=== PATIENT | male | born 1995 | race Caucasian/White ===

== ENCOUNTER 2017-07-08 17:16 | Emergency (ER) | payer OTHER, MEDICAID ==
--- NOTE | 2017-07-08 19:24 | ED ---
Skin Complaint - HPI Summary HPI Summary: rash onthe right arm starting today. It has been itchy. No fevers or sweats. no vomiting or diarrhea. - History of Current Complaint Chief Complaint: UCRash Time Seen by Provider: 07/08/17 19:11 Stated Complaint: RASH Hx Obtained From: Family/Service Architect Onset/Duration: Started Hours Ago Timing: Constant, Lasting Hours Onset Severity: Moderate Current Severity: Moderate Skin Location: Discrete, Arm Character: Pruritus Aggravating Symptom(s): Touch Alleviating Symptom(s): Nothing Associated Signs & Symptoms: Negative - Allergy/Home Medications Allergies/Adverse Reactions: Allergies Allergy/AdvReac Type Severity Reaction Status Date / Time Bee Venom Allergy Intermediate Unknown Verified 07/08/17 19:19 Reaction Details Lactose Intolerance (GI) Allergy GI upset Verified 07/08/17 19:19 Clonazepam AdvReac profound Verified 07/08/17 19:19 agitation Lorazepam AdvReac profound Verified 07/08/17 19:19 agitation PMH/Surg Hx/FS Hx/Imm Hx Endocrine/Hematology History: Reports: Hx Thyroid Disease, Hx Anemia - MILDLY IN THE PAST Denies: Hx Anticoagulant Therapy, Hx Diabetes Cardiovascular History: Denies: Hx Congestive Heart Failure, Hx Deep Vein Thrombosis, Hx Hypertension , Hx Myocardial Infarction, Hx Pacemaker/ICD, Other Cardiovascular Problems/ Disorders Respiratory History: Reports: Hx Seasonal Allergies Denies: Hx Asthma, Hx Chronic Obstructive Pulmonary Disease (COPD), Hx Lung Cancer, Hx Pneumonia, Hx Pulmonary Embolism GI History: Reports: Hx Gastroesophageal Reflux Disease - IN THE PAST, Hx Irritable Bowel - POSSIBLE, CHRONIC DIARHEA AND CONSTAPATION, Other GI Disorders - possible gerd Denies: Hx Gall Bladder Disease, Hx Gastrointestinal Bleed, Hx Ulcer, Hx Urosepsis History: Denies: Hx Kidney Stones, Hx Renal Disease, Other Problems/Disorders Musculoskeletal History: Denies: Other Musculoskeletal History Sensory History: Denies: Hx Contacts or Glasses, Hx Hearing Aid Opthamlomology History: Denies: Hx Contacts or Glasses Neurological History: Reports: Hx Developmental Delay, Hx Migraine, Hx Seizures - NEW ONSET- A YR AGO, Other Neuro Impairments/Disorders - SEVERE AUTISM Denies: Hx Dementia, Hx Transient Ischemic Attacks (TIA) Psychiatric History: Reports: Hx Anxiety - ANXIETY WITH AUTISM, Hx Inpatient Treatment, Hx Community Mental Health Tx, Hx Bipolar Disorder, Hx of Violent Episodes Against Others, Other Psychiatric Issues/Disorders - Autism Denies: Hx Depression, Hx Panic Disorder, Hx Schizophrenia - Surgical History Surgery Procedure, Year, and Place: NONE Hx Anesthesia Reactions: No - Immunization History Date of Tetanus Vaccine: 09/2006 Infectious Disease History: No Infectious Disease History: Denies: Hx Clostridium Difficile, Hx Hepatitis, Hx Human Immunodeficiency Virus (HIV), Hx of Known/Suspected MRSA, Hx Shingles, Hx Tuberculosis, Hx Known/ Suspected VRE, Hx Known/Suspected VRSA, History Other Infectious Disease, Traveled Outside the [place] in Last 30 Days - Family History Known Family History: Negative: Cardiac Disease, Hypertension, Diabetes, Renal Disease, Respiratory Disease, Seizure Disorder, Blood Disorder, Other - Social History Alcohol Use: None Substance Use Type: Reports: None Smoking Status (MU): Never Smoked Tobacco Have You Smoked in the Last Year: No Review of Systems Positive: Rash All Other Systems Reviewed And Are Negative: Yes Physical Exam Triage Information Reviewed: Yes Vital Signs On Initial Exam: Initial Vitals Temp Pulse Resp Pulse Ox 99 F 82 18 99 07/08/17 19:14 07/08/17 19:14 07/08/17 19:14 07/08/17 19:14 Vital Signs Reviewed: Yes Skin: Positive: Warm, Skin Color Reflects Adequate Perfusion, Other - fine raised right posterior forearm. no induration or drainage or weeping.. Negative : Tender, "Wooden", Cyanosis @, Diaphoretic, Jaundiced, [place]ier Tracts Neck: Positive: Supple, Nontender, No Lymphadenopathy Respiratory/Lung Sounds: Positive: Clear to Auscultation Cardiovascular: Positive: Normal Abdomen Description: Positive: Nontender Musculoskeletal: Positive: Normal Neurological: Positive: Sensory/Motor Intact Psychiatric: Positive: Normal Diagnostics - Vital Signs Vital Signs Temp Pulse Resp Pulse Ox 07/08/17 19:14 99 F 82 18 99 - Laboratory Lab Statement: Any lab studies that have been ordered have been reviewed, and results considered in the medical decision making process. Course/Dx - Course Assessment/Plan: no infectious clinical features but the were warned that scratching it with dirty nails may make this infected. this is c/w dermatitis. - Diagnoses Provider Diagnoses: Rash and nonspecific skin eruption, Dermatitis Discharge - Discharge Plan Condition: Good Disposition: HOME Prescriptions: Triamcinolone 0.5% OINT * 1 applic TOPICAL BID #1 tube MDD 2 Patient Education Materials: Dermatitis (ED) Referrals: Lida Pedersen MD [Primary Care Provider] - If Needed
== END 2017-07-08 19:39 | disposition home or self-care (01) ==
LOC: UCCORT 17:16
DX: L30.9 Dermatitis, unspecified (principal)
CPT/HCPCS: 99212; G0463

== ENCOUNTER 2017-08-17 11:40 | Emergency (ER) | payer OTHER, BC, MEDICAID ==
--- NOTE | 2017-08-17 12:26 | UC ---
Lower Extremity/Ankle HPI - HPI Summary HPI Summary: staff has noted patient to be limping on right foot for 2 days, patient is general independent in ambulation, no falls or injury noted by staff, patient has profound autism and is unable to verbalize or localize pain or concern---In addition patient was medicated with Halcion prior to arrival to assist with obtaining x-ray. - History of Current Complaint Hx Obtained From: Patient Hx From Patient Unobtainable Due To: Altered Mental Status Onset/Duration: Sudden Onset - 2 days Severity Initially: Moderate Severity Currently: Moderate Aggravating Factor(s): Ambulation Alleviating Factor(s): Nothing Able to Bear Weight: Yes <Allie Gallardo - Last Filed: 08/17/17 16:54> <Pooja Villavicencio - Last Filed: 08/18/17 20:40> - History of Current Complaint Chief Complaint: UCLowerExtremity Stated Complaint: RIGHT ANKLE INJURY Time Seen by Provider: 08/17/17 12:15 - Allergies/Home Medications Allergies/Adverse Reactions: Allergies Allergy/AdvReac Type Severity Reaction Status Date / Time Bee Venom Allergy Intermediate Unknown Verified 08/17/17 12:28 Reaction Details Hydroxyzine Allergy Unknown Verified 08/17/17 12:28 Reaction Details Lactose Intolerance (GI) Allergy GI upset Verified 08/17/17 12:28 Clonazepam AdvReac profound Verified 08/17/17 12:28 agitation Lorazepam AdvReac profound Verified 08/17/17 12:28 agitation Home Medications: Home Medications Divalproex DR TAB(*) [Depakote DR TAB(*)] 250 mg PO BEDTIME 08/17/17 [History Confirmed 08/17/17] Levothyroxine TAB* [Synthroid TAB*] 50 mcg PO DAILY 08/17/17 [History Confirmed 08/17/17] [place] Carbonate TAB* 300 mg PO BID 08/17/17 [History Confirmed 08/17/17] PMH/Surg Hx/FS Hx/Imm Hx Previously Healthy: No Endocrine History: Hypothyroidism Psychological History: Other Other Psychological History: autism Other History Of: Negative For: HIV, Hepatitis B, Hepatitis C, Anticoagulant Therapy - Surgical History Surgical History: None Surgery Procedure, Year, and Place: NONE - Family History Known Family History: Positive: Unknown Negative: Cardiac Disease, Hypertension, Diabetes, Renal Disease, Respiratory Disease, Seizure Disorder, Blood Disorder, Other Family History: staff with family history, pt unable to report hx - Social History Occupation: Disabled Lives: Skilled Nursing Alcohol Use: None Substance Use Type: None Smoking Status (MU): Never Smoked Tobacco Have You Smoked in the Last Year: No - Immunization History Most Recent Influenza Vaccination: ? Most Recent Tetanus Shot: 09/30/06 Most Recent Pneumonia Vaccination: 05/11/19 <Allie Gallardo - Last Filed: 08/17/17 16:54> Review of Systems Constitutional: Negative Skin: Negative Eyes: Negative ENT: Negative Respiratory: Negative Cardiovascular: Negative Gastrointestinal: Negative Genitourinary: Negative Motor: Negative Neurovascular: Negative Musculoskeletal: Arthralgia - as evidenced by limp Neurological: Negative Psychological: Negative Is Patient Immunocompromised?: No All Other Systems Reviewed And Are Negative: Yes <Allie Gallardo - Last Filed: 08/17/17 16:54> Physical Exam Triage Information Reviewed: Yes Appearance: Well-Appearing, No Pain Distress, Well-Nourished, Other: - sleep on stretcher Vital Signs: Initial Vital Signs Temp 97.3 F 08/17/17 12:08 Pulse 80 08/17/17 12:08 Resp 16 08/17/17 12:08 Vital Signs Reviewed: Yes Eye Exam: Normal Eyes: Positive: Conjunctiva Clear ENT Exam: Normal ENT: Positive: Normal ENT inspection, Hearing grossly normal, Pharynx normal. Negative: Nasal congestion, Nasal drainage, Tonsillar swelling, Tonsillar exudate, Trismus, Muffled/hoarse voice Dental Exam: Normal Neck exam: Normal Neck: Positive: Supple, Nontender Respiratory Exam: Normal Respiratory: Positive: Chest non-tender, Lungs clear, Normal breath sounds, No respiratory distress, No accessory muscle use Cardiovascular Exam: Normal Cardiovascular: Positive: RRR, No Murmur, Pulses Normal, Brisk Capillary Refill Abdominal Exam: Normal Musculoskeletal Exam: Normal Musculoskeletal: Positive: Strength Intact, ROM Intact, No Edema Neurological Exam: Normal Neurological: Positive: Alert, Muscle Tone Normal Psychological Exam: Normal Psychological: Positive: Abnormal Response To Family, Decreased Age Appropriate Behavior Skin Exam: Normal <Allie Gallardo - Last Filed: 08/17/17 16:54> Vital Signs: Initial Vital Signs Temp 97.3 F 08/17/17 12:08 Pulse 80 08/17/17 12:08 Resp 16 08/17/17 12:08 <Pooja Villavicencio - Last Filed: 08/18/17 20:40> Diagnostics - Radiology No standard instances Xray Interpretation: No Acute Changes Radiology Interpretation Completed By: Radiologist <Allie Gallardo - Last Filed: 08/17/17 16:54> Re-Evaluation - Re-Evaluation First Eval Change: Worse - one half hour after x-rays complete status remaines unverified-- -patient is getting aggitated and staff is wishing to leave with patient----x- rays wet read as negative Second Eval Change: Unchanged - confirmed x-ray reads by radiologist as negative no addiotal information to be provided to life support technician as plann was to call if they are any fractures <Allie Gallardo - Last Filed: 08/17/17 16:54> Lower Extremity Course/Dx - Course Course Of Treatment: rest, ibuprofen as ordereed, follow with Dr. Cartagena in 2 days - Differential Dx/Diagnosis Provider Diagnoses: Right leg pain <Allie Gallardo - Last Filed: 08/17/17 16:54> Discharge <Allie Gallardo - Last Filed: 08/17/17 16:54> <Pooja Villavicencio - Last Filed: 08/18/17 20:40> - Discharge Plan Condition: Stable Disposition: HOME Patient Education Materials: Non-pharmacological Pain Management Therapies for Adults (ED) Referrals: Lida Pedersen MD [Primary Care Provider] - 2 Days Attestation Statement User Type: Provider <Pooja Villavicencio - Last Filed: 08/18/17 20:40>
--- NOTE | 2017-08-17 13:36 | RAD ---
HISTORY: Limp COMPARISONS: None VIEWS: 2, Frontal and lateral views of the right foreleg FINDINGS: BONE DENSITY: Normal. BONES: There is no displaced fracture. JOINTS: There is no arthropathy. ALIGNMENT: There is no dislocation. SOFT TISSUES: Unremarkable. OTHER FINDINGS: None. IMPRESSION: NO ACUTE OSSEOUS INJURY. IF SYMPTOMS PERSIST, RECOMMEND REPEAT IMAGING.
--- NOTE | 2017-08-17 13:36 | RAD ---
HISTORY: Limp COMPARISONS: None VIEWS: 2, Frontal and lateral views of the right foot FINDINGS: BONE DENSITY: Normal. BONES: There is no displaced fracture. JOINTS: There is no arthropathy. ALIGNMENT: There is no dislocation. SOFT TISSUES: Unremarkable. OTHER FINDINGS: None. IMPRESSION: NO ACUTE OSSEOUS INJURY. IF SYMPTOMS PERSIST, RECOMMEND REPEAT IMAGING.
--- NOTE | 2017-08-17 13:37 | RAD ---
HISTORY: Limp COMPARISONS: None VIEWS: 2, frontal and oblique lateral views of the right knee FINDINGS: BONE DENSITY: Normal. BONES: There is no displaced fracture. JOINTS: There is no arthropathy. There is no suprapatellar joint effusion or lipohemarthrosis. ALIGNMENT: There is no dislocation. SOFT TISSUES: Unremarkable. OTHER FINDINGS: None. IMPRESSION: NO ACUTE OSSEOUS INJURY. IF SYMPTOMS PERSIST, RECOMMEND REPEAT IMAGING.
--- NOTE | 2017-08-17 13:41 | RAD ---
HISTORY: Limping COMPARISONS: None VIEWS: 3, Frontal view of the pelvis with frontal and frog-leg views of the right hip FINDINGS: BONE DENSITY: Normal. BONES: There is no displaced fracture. JOINTS: There is no arthropathy. ALIGNMENT: There is no dislocation. SOFT TISSUES: Unremarkable. OTHER FINDINGS: None. IMPRESSION: NO ACUTE OSSEOUS INJURY. IF SYMPTOMS PERSIST, RECOMMEND REPEAT IMAGING.
== END 2017-08-17 13:43 | disposition home or self-care (01) ==
LOC: UCCORT 11:40
DX: J02.9 Acute pharyngitis, unspecified (principal); F90.1 Attention-deficit hyperactivity disorder, predominantly hyperactive type
CPT/HCPCS: 99212; G0463

== ENCOUNTER 2017-11-02 13:43 | Emergency (ER) | payer OTHER, BC, MEDICAID ==
[2017-11-02 14:50] LABS: ABS Basophils 0.1 10^3/ul (0-0.2); ABS Eosinophils 0.1 10^3/ul (0-0.6); ABS Lymphocytes 1.7 10^3/ul (1.0-4.8); ABS Monocytes 0.5 10^3/ul (0-0.8); ABS Neutrophils 3.4 10^3/ul (1.5-7.7); ABS Nucleated RBC 0 10^3/ul; Eosinophil % 2.5 % (0-6); Hematocrit 36 % (42-52); Hemoglobin 12.9 g/dl (14.0-18.0); Lymphocyte % 30.1 % (25-47); Mean Corpuscular HGB Conc 36 g/dl (31-36); Mean Corpuscular Hemoglobin 31 pg (27-31); Mean Corpuscular Volume 88 fL (80-94); Mean Platelet Volume 7 um3 (7.4-10.4); Nucleated Red Blood Cells % 0.1; Platelet Count 265 10^3/ul (150-450); Red Blood Count 4.14 10^6/ul (4.0-5.4); Red Cell Distribution Width 12 % (10.5-15); White Blood Count 5.8 10^3/ul (3.5-10.8)
[2017-11-02 14:59] LABS: Urine Appearance Clear; Urine Blood Negative (Negative); Urine Color Colorless; Urine Ketones Negative (Negative); Urine Protein Negative (Negative); Urine Specific Gravity 1.002 (1.010-1.030); Urine Urobilinogen Negative (Negative)
--- NOTE | 2017-11-02 15:06 | RAD ---
HISTORY: Possible seizure COMPARISONS: May 30, 2012 TECHNIQUE: Multiple contiguous axial CT scans were obtained of the head without intravenous contrast. FINDINGS: The study is limited by patient motion artifact. HEMORRHAGE/INFARCT: There is no hemorrhage or acute infarct. MASSES/SHIFT: There is no mass or shift. EXTRA-AXIAL SPACES: There are no extra-axial fluid collections. SULCI AND VENTRICLES: The sulci and ventricles are normal in size and position for the patient's stated age. CEREBRUM: There are no focal parenchymal abnormalities. BRAINSTEM: There are no focal parenchymal abnormalities. CEREBELLUM: There are no focal parenchymal abnormalities. VESSELS: The vessels are grossly normal. PARANASAL SINUSES: The paranasal sinuses are clear. ORBITS: The orbits are unremarkable. BONES AND SOFT TISSUE: There is soft tissue swelling along the central frontal scalp. OTHER: None IMPRESSION: NO ACUTE INTRACRANIAL PATHOLOGY.
[2017-11-02 15:10] LABS: EGFR Non-African American 221.3 (>60)
[2017-11-02] MEDS ORDERED: Triazolam TAB* 0.25 MG PO ONE (18:45)
[2017-11-02] MEDS ORDERED: Haloperidol INJ IV/IM* 5 MG/ML AMP IM ONE (18:46)
[2017-11-02] MEDS ORDERED: QUEtiapine TAB* 100 MG PO ONE (18:50)
[2017-11-02 19:00] VITALS: BP 137/71
--- NOTE | 2017-11-13 15:22 | ED ---
Beau Ledesma Gabriel, scribed for Simba Marie MD on 11/02/17 at 1425 . Neurological HPI - HPI Summary HPI Summary: This patient is a 22 year old M BIBA to [facility] accompanied by care takers with a chief complaint of possible seizure activity that began at 13:00. His child adolescent care reports that he was getting out of bed and fell, but the open hearth furnace operator caught him. Since then he has had decreased responsiveness with occasional grunting. He has a history of seizures that were diagnosed due to sleep deprivation. Earlier in the day he was at baseline, at baseline he is very active and fidgets often. Staff denies incontinence and vomiting. He has had a recent medication switch from Depakote to Remeron on 10/15/17. - History of Current Complaint Chief Complaint: EDSeizure Stated Complaint: LOSS OC CONSCIOUSNESS Hx Obtained From: Family/Curb Builder Onset/Duration: Sudden Onset, Started hours ago, Still Present Timing: Constant Onset Severity: Mild Current Severity: Mild Pain Intensity: 0 Pain Scale Used: 0-10 Numeric Character: Responsiveness - Allergy/Home Medications Allergies/Adverse Reactions: Allergies Allergy/AdvReac Type Severity Reaction Status Date / Time Bee Venom Allergy Intermediate Unknown Verified 11/02/17 13:59 Reaction Details Hydroxyzine Allergy Unknown Verified 11/02/17 13:59 Reaction Details Lactose Intolerance (GI) Allergy GI upset Verified 11/02/17 13:59 Clonazepam AdvReac profound Verified 11/02/17 13:59 agitation Lorazepam AdvReac profound Verified 11/02/17 13:59 agitation PMH/Surg Hx/FS Hx/Imm Hx Endocrine/Hematology History: Reports: Hx Thyroid Disease, Hx Anemia - MILDLY IN THE PAST Denies: Hx Anticoagulant Therapy, Hx Diabetes Cardiovascular History: Denies: Hx Congestive Heart Failure, Hx Deep Vein Thrombosis, Hx Hypertension , Hx Myocardial Infarction, Hx Pacemaker/ICD, Other Cardiovascular Problems/ Disorders Respiratory History: Reports: Hx Seasonal Allergies Denies: Hx Asthma, Hx Chronic Obstructive Pulmonary Disease (COPD), Hx Lung Cancer, Hx Pneumonia, Hx Pulmonary Embolism GI History: Reports: Hx Gastroesophageal Reflux Disease - IN THE PAST, Hx Irritable Bowel - POSSIBLE, CHRONIC DIARHEA AND CONSTAPATION, Other GI Disorders - possible gerd Denies: Hx Gall Bladder Disease, Hx Gastrointestinal Bleed, Hx Ulcer, Hx Urosepsis History: Denies: Hx Kidney Stones, Hx Renal Disease, Other Problems/Disorders Musculoskeletal History: Denies: Other Musculoskeletal History Sensory History: Denies: Hx Contacts or Glasses Opthamlomology History: Denies: Hx Contacts or Glasses Neurological History: Reports: Hx Developmental Delay, Hx Migraine, Hx Seizures - NEW ONSET- A YR AGO, Other Neuro Impairments/Disorders - SEVERE AUTISM Denies: Hx Dementia, Hx Transient Ischemic Attacks (TIA) Psychiatric History: Reports: Hx Anxiety - ANXIETY WITH AUTISM, Hx Inpatient Treatment, Hx Community Mental Health Tx, Hx Bipolar Disorder, Hx of Violent Episodes Against Others, Other Psychiatric Issues/Disorders - Autism Denies: Hx Depression, Hx Panic Disorder, Hx Schizophrenia - Surgical History Surgery Procedure, Year, and Place: NONE Hx Anesthesia Reactions: No - Immunization History Date of Tetanus Vaccine: 09/2006 Infectious Disease History: Yes Infectious Disease History: Denies: Hx Clostridium Difficile, Hx Hepatitis, Hx Human Immunodeficiency Virus (HIV), Hx of Known/Suspected MRSA, Hx Shingles, Hx Tuberculosis, Hx Known/ Suspected VRE, Hx Known/Suspected VRSA, History Other Infectious Disease, Traveled Outside the [place] in Last 30 Days - Family History Known Family History: Negative: Cardiac Disease, Hypertension, Diabetes, Renal Disease, Respiratory Disease, Seizure Disorder, Blood Disorder, Other Family History: staff with family history, pt unable to report hx - Social History Alcohol Use: None Substance Use Type: Reports: None Smoking Status (MU): Never Smoked Tobacco Have You Smoked in the Last Year: No Review of Systems - ROS Summary Review of Systems Summary: LEVEL 5 CAVEAT: ROS limited due to the patients decreased responsiveness. Constitutional: Other - syncope Negative: Vomiting Negative: incontinence Psychological: Other - decreased responsiveness All Other Systems Reviewed And Are Negative: No Physical Exam - Summary Physical Exam Summary: Appearance: somulent. Appears tired. Opens eyes on command. Decreased overall activity compared to baseline- per staff Skin: Warm Eyes: Normal ENT: self-inflicted abrasion on his forehead Neck: Supple, nontender Respiratory: Clear to auscultation Cardiovascular: tachycardic Abdomen: Soft, nontender Bowel: Present Musculoskeletal: Normal, Strength/ROM Intact. Moving extremities spontaneously Neurological: Normal, A&Ox3 Psychiatric: Normal Triage Information Reviewed: Yes Vital Signs On Initial Exam: Initial Vitals Temp Pulse Resp BP Pulse Ox 98.3 F 110 16 131/91 99 11/02/17 13:52 11/02/17 13:52 11/02/17 13:52 11/02/17 13:52 11/02/17 13:52 Vital Signs Reviewed: Yes Completion Of Physical Exam Limited Due To: Altered Mental Status, Level 5 Diagnostics - Vital Signs Vital Signs Temp Pulse Resp BP Pulse Ox 11/02/17 13:52 98.3 F 110 16 131/91 99 - Laboratory Lab Results: Lab Results 11/02/17 11/02/17 11/02/17 Range/Units 14:36 14:36 14:36 WBC 5.8 (3.5-10.8) 10^3/ul RBC 4.14 (4.0-5.4) 10^6/ul Hgb 12.9 L (14.0-18.0) g/dl Hct 36 L (42-52) % MCV 88 (80-94) fL MCH 31 (27-31) pg MCHC 36 (31-36) g/dl RDW 12 (10.5-15) % Plt Count 265 (150-450) 10^3/ul MPV 7 L (7.4-10.4) um3 Neut % (Auto) 58.0 (38-83) % Lymph % (Auto) 30.1 (25-47) % [place] % (Auto) 8.5 (1-9) % Eos % (Auto) 2.5 (0-6) % Baso % (Auto) 0.9 (0-2) % Absolute Neuts (auto) 3.4 (1.5-7.7) 10^3/ul Absolute Lymphs (auto) 1.7 (1.0-4.8) 10^3/ul Absolute Monos (auto) 0.5 (0-0.8) 10^3/ul Absolute Eos (auto) 0.1 (0-0.6) 10^3/ul Absolute Basos (auto) 0.1 (0-0.2) 10^3/ul Absolute Nucleated RBC 0 10^3/ul Nucleated RBC % 0.1 Sodium 132 L (133-145) mmol/L Potassium TNP Chloride 105 (101-111) mmol/L Carbon Dioxide 24 (22-32) mmol/L Anion Gap 3 (2-11) mmol/L BUN 8 (6-24) mg/dL Creatinine 0.47 L (0.67-1.17) mg/dL Est GFR ( Amer) 284.6 (>60) Est GFR (Non-Af Amer) 221.3 (>60) BUN/Creatinine Ratio 17.0 (8-20) Glucose 91 (70-100) mg/dL Lactic Acid 0.9 (0.5-2.0) mmol/L Calcium 9.1 (8.6-10.3) mg/dL Magnesium 2.0 (1.9-2.7) mg/dL Total Bilirubin 0.50 (0.2-1.0) mg/dL AST TNP ALT 21 (7-52) U/L Alkaline Phosphatase 69 (34-104) U/L Ammonia (16-53) mol/L Total Protein 6.1 L (6.4-8.9) g/dL Albumin 4.2 (3.2-5.2) g/dL Globulin 1.9 L (2-4) g/dL Albumin/Globulin Ratio 2.2 (1-3) Urine Color Urine Appearance Urine pH (5-9) Ur Specific [place] (1.010-1.030) Urine Protein (Negative) Urine Ketones (Negative) Urine Blood (Negative) Urine Nitrate (Negative) Urine Bilirubin (Negative) Urine Urobilinogen (Negative) Ur Leukocyte Esterase (Negative) Urine Glucose (Negative) [place] 0.96 (0.6-1.2) mmol/L 11/02/17 11/02/17 11/02/17 Range/Units 14:36 14:45 16:28 WBC (3.5-10.8) 10^3/ul RBC (4.0-5.4) 10^6/ul Hgb (14.0-18.0) g/dl Hct (42-52) % MCV (80-94) fL MCH (27-31) pg MCHC (31-36) g/dl RDW (10.5-15) % Plt Count (150-450) 10^3/ul MPV (7.4-10.4) um3 Neut % (Auto) (38-83) % Lymph % (Auto) (25-47) % [place] % (Auto) (1-9) % Eos % (Auto) (0-6) % Baso % (Auto) (0-2) % Absolute Neuts (auto) (1.5-7.7) 10^3/ul Absolute Lymphs (auto) (1.0-4.8) 10^3/ul Absolute Monos (auto) (0-0.8) 10^3/ul Absolute Eos (auto) (0-0.6) 10^3/ul Absolute Basos (auto) (0-0.2) 10^3/ul Absolute Nucleated RBC 10^3/ul Nucleated RBC % Sodium (133-145) mmol/L Potassium TNP Chloride (101-111) mmol/L Carbon Dioxide (22-32) mmol/L Anion Gap (2-11) mmol/L BUN (6-24) mg/dL Creatinine (0.67-1.17) mg/dL Est GFR ( Amer) (>60) Est GFR (Non-Af Amer) (>60) BUN/Creatinine Ratio (8-20) Glucose (70-100) mg/dL Lactic Acid (0.5-2.0) mmol/L Calcium (8.6-10.3) mg/dL Magnesium (1.9-2.7) mg/dL Total Bilirubin (0.2-1.0) mg/dL AST TNP ALT (7-52) U/L Alkaline Phosphatase (34-104) U/L Ammonia 69 H (16-53) mol/L Total Protein (6.4-8.9) g/dL Albumin (3.2-5.2) g/dL Globulin (2-4) g/dL Albumin/Globulin Ratio (1-3) Urine Color Colorless Urine Appearance Clear Urine pH 7.0 (5-9) Ur Specific [place] 1.002 L (1.010-1.030) Urine Protein Negative (Negative) Urine Ketones Negative (Negative) Urine Blood Negative (Negative) Urine Nitrate Negative (Negative) Urine Bilirubin Negative (Negative) Urine Urobilinogen Negative (Negative) Ur Leukocyte Esterase Negative (Negative) Urine Glucose Negative (Negative) [place] (0.6-1.2) mmol/L Result Diagrams: 11/02/17 14:36 11/02/17 16:28 Lab Statement: Any lab studies that have been ordered have been reviewed, and results considered in the medical decision making process. - CT CT Brain CT Interpretation Completed By: Radiologist - no acute intracranial pathology ED physician has reviewed this radiology report. Course/Dx - Course Assessment/Plan: I had a conversation with our neurologist front line leader Dr. Marquez who agreed that given negative head ct, and the fact that patient is now back at baseline, that outpatient neurological evaluation for medication adjustments would be appropriate. Pt's family and staff at bedside and in agreement with plan. - Diagnoses Provider Diagnoses: Altered mental status Discharge - Discharge Plan Condition: Improved Disposition: HOME Patient Education Materials: Syncope (ED) Referrals: Lida Pedersen MD [Primary Care Provider] - Margarito Marquez MD [Medical Doctor] - Additional Instructions: PLEASE MAKE AN APPOINTMENT FIRST THING IN THE MORNING TO BE SEEN BY A NEUROLOGIST WITHIN 1-2 WEEKS PLEASE RETURN IMMEDIATELY TO THE ER IF YOU HAVE ANY WORSENING OR CONCERNING SYMPTOMS PLEASE MAKE AN APPOINTMENT TO BE SEEN BY YOUR PRIMARY CARE DOCTOR WITHIN 1 WEEK The documentation as recorded by the Beau hill Gabriel accurately reflects the service I personally performed and the decisions made by me, Simba Marie MD.
== END 2017-11-02 18:58 | disposition home or self-care (01) ==
LOC: ED 13:43
DX: R41.82 Altered mental status, unspecified (principal); R55 Syncope and collapse
CPT/HCPCS: 36415; 70450; 80053; 80178; 81003; 82140; 83605; 83735; 85025; 99282; A9270-GY; J1630

== ENCOUNTER 2017-11-11 16:35 | Emergency (ER) | payer BC, OTHER, MEDICAID ==
[2017-11-11 17:56] LABS: ABS Basophils 0 10^3/ul (0-0.2); ABS Eosinophils 0.1 10^3/ul (0-0.6); ABS Lymphocytes 1.9 10^3/ul (1.0-4.8); ABS Monocytes 0.7 10^3/ul (0-0.8); ABS Neutrophils 8.7 10^3/ul (1.5-7.7); ABS Nucleated RBC 0 10^3/ul; Eosinophil % 0.7 % (0-6); Hematocrit 41 % (42-52); Hemoglobin 14.1 g/dl (14.0-18.0); Lymphocyte % 16.6 % (25-47); Mean Corpuscular HGB Conc 35 g/dl (31-36); Mean Corpuscular Hemoglobin 30 pg (27-31); Mean Corpuscular Volume 86 fL (80-94); Mean Platelet Volume 7 um3 (7.4-10.4); Nucleated Red Blood Cells % 0; Platelet Count 305 10^3/ul (150-450); Red Cell Distribution Width 12 % (10.5-15); White Blood Count 11.4 10^3/ul (3.5-10.8)
[2017-11-11 18:18] LABS: INR 1.01 (0.77-1.02)
[2017-11-11 19:26] LABS: Urine Appearance Clear; Urine Blood Negative (Negative); Urine Color Colorless; Urine Ketones Negative (Negative); Urine Protein Negative (Negative); Urine Urobilinogen Negative (Negative)
[2017-11-11] MEDS ORDERED: Divalproex DR TAB(*) 500 MG PO ONE (20:31)
[2017-11-11 20:42] VITALS: BP 139/70
--- NOTE | 2017-11-12 12:10 | ED ---
Shiva Ledesma Thomas, scribed for Gregory Edge MD on 11/11/17 at 1943 . Neurological HPI - HPI Summary HPI Summary: This patient is a 22 year old M BIBA to [facility] accompanied by family with seizure activity since 4 pm today. The patient has a history of autism and he is nonverbal. History is obtained from the patients mother. She reports his whole body was shaking and that the seizure lasted about 45 seconds. - History of Current Complaint Chief Complaint: EDSeizure Stated Complaint: SEIZURES Time Seen by Provider: 11/11/17 16:53 Hx Obtained From: Family/Repairer Controller Tester Hx From Patient Unobtainable Due To: Other - Autism Onset/Duration: Sudden Onset, Started hours ago Timing: Sudden Onset Number of Seizures: 1 Pain Intensity: 0 Pain Scale Used: 0-10 Numeric Episode Lasting: Seconds/Minutes - 45 seconds Aggravating: Nothing Alleviating: Nothing Related Hx: Seizure - Allergy/Home Medications Allergies/Adverse Reactions: Allergies Allergy/AdvReac Type Severity Reaction Status Date / Time Bee Venom Allergy Intermediate Unknown Verified 11/02/17 13:59 Reaction Details Hydroxyzine Allergy Unknown Verified 11/02/17 13:59 Reaction Details Lactose Intolerance (GI) Allergy GI upset Verified 11/02/17 13:59 Clonazepam AdvReac profound Verified 11/02/17 13:59 agitation Lorazepam AdvReac profound Verified 11/02/17 13:59 agitation PMH/Surg Hx/FS Hx/Imm Hx Endocrine/Hematology History: Reports: Hx Thyroid Disease, Hx Anemia - MILDLY IN THE PAST Denies: Hx Anticoagulant Therapy, Hx Diabetes Cardiovascular History: Denies: Hx Congestive Heart Failure, Hx Deep Vein Thrombosis, Hx Hypertension , Hx Myocardial Infarction, Hx Pacemaker/ICD, Other Cardiovascular Problems/ Disorders Respiratory History: Reports: Hx Seasonal Allergies Denies: Hx Asthma, Hx Chronic Obstructive Pulmonary Disease (COPD), Hx Lung Cancer, Hx Pneumonia, Hx Pulmonary Embolism GI History: Reports: Hx Gastroesophageal Reflux Disease - IN THE PAST, Hx Irritable Bowel - POSSIBLE, CHRONIC DIARHEA AND CONSTAPATION, Other GI Disorders - possible gerd Denies: Hx Gall Bladder Disease, Hx Gastrointestinal Bleed, Hx Ulcer, Hx Urosepsis History: Denies: Hx Kidney Stones, Hx Renal Disease, Other Problems/Disorders Musculoskeletal History: Denies: Other Musculoskeletal History Sensory History: Denies: Hx Contacts or Glasses Opthamlomology History: Denies: Hx Contacts or Glasses Neurological History: Reports: Hx Developmental Delay, Hx Migraine, Hx Seizures - NEW ONSET- A YR AGO, Other Neuro Impairments/Disorders - SEVERE AUTISM Denies: Hx Dementia, Hx Transient Ischemic Attacks (TIA) Psychiatric History: Reports: Hx Anxiety - ANXIETY WITH AUTISM, Hx Inpatient Treatment, Hx Community Mental Health Tx, Hx Bipolar Disorder, Hx of Violent Episodes Against Others, Other Psychiatric Issues/Disorders - Autism Denies: Hx Depression, Hx Panic Disorder, Hx Schizophrenia - Surgical History Surgery Procedure, Year, and Place: NONE Hx Anesthesia Reactions: No - Immunization History Date of Tetanus Vaccine: 09/2006 Infectious Disease History: No Infectious Disease History: Denies: Hx Clostridium Difficile, Hx Hepatitis, Hx Human Immunodeficiency Virus (HIV), Hx of Known/Suspected MRSA, Hx Shingles, Hx Tuberculosis, Hx Known/ Suspected VRE, Hx Known/Suspected VRSA, History Other Infectious Disease, Traveled Outside the [place] in Last 30 Days - Family History Known Family History: Negative: Cardiac Disease, Hypertension, Diabetes, Renal Disease, Respiratory Disease, Seizure Disorder, Blood Disorder, Other Family History: staff with family history, pt unable to report hx - Social History Alcohol Use: None Substance Use Type: Reports: None Smoking Status (MU): Never Smoked Tobacco Have You Smoked in the Last Year: No Review of Systems Negative: Fever Psychological: Other - Autism All Other Systems Reviewed And Are Negative: No Physical Exam - Summary Physical Exam Summary: Appearance: The patient is well-nourished in no acute distress and in no acute pain. Skin: The skin is warm and dry and skin color reflects adequate perfusion. There is an abrasion on his forehead and a slight infraorbital hematoma on the left that is old. HEENT: The head is normocephalic and atraumatic. The pupils are equal and reactive. The conjunctivae are clear and without drainage. Nares are patent and without drainage. Mouth reveals moist mucous membranes and the throat is without erythema and exudate. The external ears are intact. The ear canals are patent and without drainage. The tympanic membranes are intact. Neck: the neck is supple with full range of motion and non-tender. There are no carotid bruits. There is no neck vein distension. Respiratory: Chest is non-tender. Lungs are clear to auscultation and breath sounds are symmetrical and equal. Cardiovascular: Heart is regular rate and rhythm. There is no murmur or rub auscultated. There is no peripheral edema and pulses are symmetrical and equal. Abdomen: The abdomen is soft and non-tender. There are normal bowel sounds heard in all four quadrants and there is no organomegaly palpated. Musculoskeletal: There is no back tenderness noted. Extremities are non-tender with full range of motion. There is good capillary refill. There is no peripheral edema or calf tenderness elicited. Neurological: The patient has symmetrical motor strength in all four extremities. Cranial nerves are grossly intact. Deep tendon reflexes are symmetrical and equal in all four extremities. Psychiatric: The patient has an appropriate affect at baseline. Triage Information Reviewed: Yes Vital Signs On Initial Exam: Initial Vitals Temp Pulse Resp BP Pulse Ox 97.7 F 88 18 150/74 99 11/11/17 16:39 11/11/17 16:39 11/11/17 16:39 11/11/17 16:39 11/11/17 16:39 Vital Signs Reviewed: Yes Completion Of Physical Exam Limited Due To: Level 5 - Suzanne Coma Scale Coma Scale Total: 10 Diagnostics - Vital Signs Vital Signs Temp Pulse Resp BP Pulse Ox 11/11/17 19:15 97.6 F 84 18 142/70 99 11/11/17 16:39 97.7 F 88 18 150/74 99 - Laboratory Lab Results: Lab Results 11/11/17 11/11/17 11/11/17 Range/Units 17:40 17:40 17:40 WBC 11.4 H (3.5-10.8) 10^3/ul RBC 4.70 (4.0-5.4) 10^6/ul Hgb 14.1 (14.0-18.0) g/dl Hct 41 L (42-52) % MCV 86 (80-94) fL MCH 30 (27-31) pg MCHC 35 (31-36) g/dl RDW 12 (10.5-15) % Plt Count 305 (150-450) 10^3/ul MPV 7 L (7.4-10.4) um3 Neut % (Auto) 76.4 (38-83) % Lymph % (Auto) 16.6 L (25-47) % [place] % (Auto) 6.1 (1-9) % Eos % (Auto) 0.7 (0-6) % Baso % (Auto) 0.2 (0-2) % Absolute Neuts (auto) 8.7 H (1.5-7.7) 10^3/ul Absolute Lymphs (auto) 1.9 (1.0-4.8) 10^3/ul Absolute Monos (auto) 0.7 (0-0.8) 10^3/ul Absolute Eos (auto) 0.1 (0-0.6) 10^3/ul Absolute Basos (auto) 0 (0-0.2) 10^3/ul Absolute Nucleated RBC 0 10^3/ul Nucleated RBC % 0 INR (Anticoag Therapy) 1.01 (0.77-1.02) Sodium 131 L (133-145) mmol/L Potassium 3.5 (3.5-5.0) mmol/L Chloride 100 L (101-111) mmol/L Carbon Dioxide 25 (22-32) mmol/L Anion Gap 6 (2-11) mmol/L BUN 4 L (6-24) mg/dL Creatinine 0.48 L (0.67-1.17) mg/dL Est GFR ( Amer) 277.8 (>60) Est GFR (Non-Af Amer) 216.0 (>60) BUN/Creatinine Ratio 8.3 (8-20) Glucose 102 H (70-100) mg/dL Lactic Acid (0.5-2.0) mmol/L Calcium 10.4 H (8.6-10.3) mg/dL Magnesium 2.2 (1.9-2.7) mg/dL Total Bilirubin 0.50 (0.2-1.0) mg/dL AST 15 (13-39) U/L ALT 21 (7-52) U/L Alkaline Phosphatase 75 (34-104) U/L Total Creatine Kinase 107 (10-223) U/L C-Reactive Protein < 1.00 (< 5.00) mg/L Total Protein 7.3 (6.4-8.9) g/dL Albumin 4.9 (3.2-5.2) g/dL Globulin 2.4 (2-4) g/dL Albumin/Globulin Ratio 2.0 (1-3) Urine Color Urine Appearance Urine pH (5-9) Ur Specific [place] (1.010-1.030) Urine Protein (Negative) Urine Ketones (Negative) Urine Blood (Negative) Urine Nitrate (Negative) Urine Bilirubin (Negative) Urine Urobilinogen (Negative) Ur Leukocyte Esterase (Negative) Urine Glucose (Negative) Valproic Acid < 13.0 L (50-100) mcg/mL [place] 0.67 (0.6-1.2) mmol/L 11/11/17 11/11/17 Range/Units 17:40 19:20 WBC (3.5-10.8) 10^3/ul RBC (4.0-5.4) 10^6/ul Hgb (14.0-18.0) g/dl Hct (42-52) % MCV (80-94) fL MCH (27-31) pg MCHC (31-36) g/dl RDW (10.5-15) % Plt Count (150-450) 10^3/ul MPV (7.4-10.4) um3 Neut % (Auto) (38-83) % Lymph % (Auto) (25-47) % [place] % (Auto) (1-9) % Eos % (Auto) (0-6) % Baso % (Auto) (0-2) % Absolute Neuts (auto) (1.5-7.7) 10^3/ul Absolute Lymphs (auto) (1.0-4.8) 10^3/ul Absolute Monos (auto) (0-0.8) 10^3/ul Absolute Eos (auto) (0-0.6) 10^3/ul Absolute Basos (auto) (0-0.2) 10^3/ul Absolute Nucleated RBC 10^3/ul Nucleated RBC % INR (Anticoag Therapy) (0.77-1.02) Sodium (133-145) mmol/L Potassium (3.5-5.0) mmol/L Chloride (101-111) mmol/L Carbon Dioxide (22-32) mmol/L Anion Gap (2-11) mmol/L BUN (6-24) mg/dL Creatinine (0.67-1.17) mg/dL Est GFR ( Amer) (>60) Est GFR (Non-Af Amer) (>60) BUN/Creatinine Ratio (8-20) Glucose (70-100) mg/dL Lactic Acid 1.2 (0.5-2.0) mmol/L Calcium (8.6-10.3) mg/dL Magnesium (1.9-2.7) mg/dL Total Bilirubin (0.2-1.0) mg/dL AST (13-39) U/L ALT (7-52) U/L Alkaline Phosphatase (34-104) U/L Total Creatine Kinase (10-223) U/L C-Reactive Protein (< 5.00) mg/L Total Protein (6.4-8.9) g/dL Albumin (3.2-5.2) g/dL Globulin (2-4) g/dL Albumin/Globulin Ratio (1-3) Urine Color Colorless Urine Appearance Clear Urine pH 7.0 (5-9) Ur Specific [place] 1.000 L (1.010-1.030) Urine Protein Negative (Negative) Urine Ketones Negative (Negative) Urine Blood Negative (Negative) Urine Nitrate Negative (Negative) Urine Bilirubin Negative (Negative) Urine Urobilinogen Negative (Negative) Ur Leukocyte Esterase Negative (Negative) Urine Glucose Negative (Negative) Valproic Acid (50-100) mcg/mL [place] (0.6-1.2) mmol/L Result Diagrams: 11/11/17 17:40 11/11/17 17:40 Lab Statement: Any lab studies that have been ordered have been reviewed, and results considered in the medical decision making process. Course/Dx - Course Course Of Treatment: Hakeem was brought to the ED because he had a generalized tonic-clonic seizure today lasting about 45 seconds. He has definitively had one other and possibly two this month after being tapered off of depakote. He was on depakote originally for seizures many years ago as a young child. Dr. Higuera felt that he did not need it and was not in danger of seizing many years ago. Hakeem also has a mood disorder and he was kept on it as well as librium for that. The decision was made to stop the depakote and he had a two week taper ending 10/24. His labs and exam were fine here today. I spoke with Dr. Chin who felt that we could not know if he has underlying seizures or if he was merely tapered too fast after over a decade of taking depakote. She recommended we restart the depakot at 1 gram a day and taper more slowly. A F/U with Dr. Higuera and eeg were also recommended. - Diagnoses Provider Diagnoses: Seizure Discharge - Discharge Plan Condition: Stable Disposition: HOME Patient Education Materials: Recurrent Seizures in Adults (ED) Referrals: Lida Pedersen MD [Primary Care Provider] - 3 Days Arias Higuera MD [Medical Doctor] - 3 Days Additional Instructions: Follow up with Dr. Higuera in 3-4 days. Follow up with your primary care physician regarding the Depakote taper. Return to the emergency department for any new or worsening symptoms. The documentation as recorded by the Shiva hill Thomas accurately reflects the service I personally performed and the decisions made by me, Gregory Edge MD.
== END 2017-11-11 20:41 | disposition home or self-care (01) ==
LOC: ED 16:35
DX: R56.9 Unspecified convulsions (principal); Z86.39 Personal history of other endocrine, nutritional and metabolic disease; Z87.19 Personal history of other diseases of the digestive system; F84.0 Autistic disorder
CPT/HCPCS: 36415; 80053; 80164; 80178; 81003; 82550; 83605; 83735; 85025; 85610; 86140; 96374; 96375; 99283; A9270-GY

== ENCOUNTER 2017-12-05 08:12 | Emergency (ER) | payer OTHER, BC, MEDICAID ==
[2017-12-05 08:56] VITALS: BP 114/68
--- NOTE | 2017-12-05 09:08 | UC ---
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 HERE TO EVALUATE REDNESS ON BRIDGE OF NOSE.. PT HAS A PICKING DISORDER. ALSO HX OF MRSA AND IMPETIGO.PT RECEIVED TRIAZOLAM 0.25 MG, 3 TABS THIS MORNING AT 0715. HE GETS THIS BEFORE MEDICAL/DENTAL APPOINTMENTS TO PREVENT AGITATATION AND SELF INJURY. PT IS SLEEPING . RESPONDS TO TOUCH AND VOICE" Here w/ care givers Carlie and David. Has new sore that started on his forehead. no discharge, fevers or chills. no other concerns per staff. Note sent by staff requests tylenol w/ codeine for the impetigo as that has been done in the past. - History of Current Complaint Chief Complaint: UCSkin Time Seen by Provider: 12/05/17 08:48 Stated Complaint: SKIN COMPLAINT Pain Intensity: 0 - Allergy/Home Medications Allergies/Adverse Reactions: Allergies Allergy/AdvReac Type Severity Reaction Status Date / Time Benzodiazepines Allergy Severe "PROFOUND Verified 12/05/17 08:43 AGGITATION" MS Bee Venom [Bee Venom] Allergy Intermediate Unknown Verified 11/02/17 13:59 Reaction Details MS Hydroxyzine [Hydroxyzine] Allergy Unknown Verified 11/02/17 13:59 Reaction Details MS Lactose Intolerance (GI) Allergy GI upset Verified 11/02/17 13:59 [Lactose Intolerance (GI)] MS Clonazepam [Clonazepam] AdvReac profound Verified 11/02/17 13:59 agitation MS Lorazepam [Lorazepam] AdvReac profound Verified 11/02/17 13:59 agitation Home Medications: Home Medications Triazolam TAB* [Halcion TAB*] 0.75 mg PO PRN 12/05/17 [History] Review of Systems Constitutional: Negative Skin: Rash Eyes: Negative ENT: Negative Respiratory: Negative Cardiovascular: Negative Gastrointestinal: Negative Genitourinary: Negative Motor: Negative Neurovascular: Negative Musculoskeletal: Negative Neurological: Negative Psychological: Negative Is Patient Immunocompromised?: No All Other Systems Reviewed And Are Negative: Yes PMH/Surg Hx/FS Hx/Imm Hx Previously Healthy: Yes Psychological History: Bipolar Disorder, Other - autism, PICA, MR Other Psychological History: MR, PICA, Bipolar, autism Other History Of: Negative For: HIV, Hepatitis B, Hepatitis C, Anticoagulant Therapy - Surgical History Surgical History: Yes Surgery Procedure, Year, and Place: WISDOM TEETH EXTRACTIONS - Family History Known Family History: Positive: Unknown Negative: Cardiac Disease, Hypertension, Diabetes, Renal Disease, Respiratory Disease, Seizure Disorder, Blood Disorder, Other Family History: staff with family history, pt unable to report hx - Social History Alcohol Use: None Substance Use Type: None Smoking Status (MU): Never Smoked Tobacco Have You Smoked in the Last Year: No - Immunization History Most Recent Influenza Vaccination: ? Most Recent Tetanus Shot: 09/30/06 Most Recent Pneumonia Vaccination: 05/11/19 Physical Exam Triage Information Reviewed: Yes Completion Of Physical Exam Limited Due To: Altered Mental Status Appearance: Well-Nourished, Other: - sedated, sleeping, he does turn and respond to touch. Vital Signs: Initial Vital Signs Temp 97.5 F 12/05/17 08:43 Pulse 86 12/05/17 08:43 Resp 14 12/05/17 08:43 BP 114/68 12/05/17 08:43 Pulse Ox 100 12/05/17 08:43 Vital Signs Reviewed: Yes ENT Exam: Normal ENT: Positive: Other - dime sized sore mid forehead w/ minimal honey crusting vessicles. no surrounding Respiratory Exam: Normal Respiratory: Positive: Lungs clear Cardiovascular Exam: Normal Cardiovascular: Positive: RRR Neurological: Positive: Other: - sedated Psychological: Positive: Other: - sedated/sleeping. rolls over on stretcher Skin: Positive: Other - see above Course/Dx - Course Course Of Treatment: No codeine is indicated for this dx (as it was requested from facility he resides in). - Differential Diagnoses - Skin Complaint Differential Diagnoses: Cellulitis, Contact Dermatitis - Diagnoses Provider Diagnoses: impetigo Discharge - Discharge Plan Condition: Stable Disposition: HOME Prescriptions: Mupirocin 2% OINT* [Bactroban 2 % Oint*] 1 applic TOPICAL BID 10 Days #1 tube Sulfamethox/Trimethoprim DS* [Bactrim DS 800/160 TAB*] 1 tab PO BID #20 tab Patient Education Materials: Impetigo (ED), MRSA (Methicillin-Resistant Staphylococcus Aureus) (ED) Referrals: Lida Pedersen MD [Primary Care Provider] - 3 Days Additional Instructions: He has been given prescription for bactroban topical ointmentr that can be reapplied as often as needed if he wipes it off. Also given bactrim for 10 days. There was a request for tylenol with codeine. There is no indication for narcotic pain medicine for diagnosis of early mild impetigo.
== END 2017-12-05 09:19 | disposition home or self-care (01) ==
LOC: UCCORT 08:12
DX: L01.00 Impetigo, unspecified (principal); Z86.14 Personal history of Methicillin resistant Staphylococcus aureus infection; F84.0 Autistic disorder; F79 Unspecified intellectual disabilities; F50.89 Other specified eating disorder
CPT/HCPCS: 99212; G0463

== ENCOUNTER 2017-12-10 14:44 | Inpatient (IN) | payer BC, MEDICAID ==
[2017-12-10] MEDS ORDERED: diPHENhydraMINE IV* 50 MG/ML 1 ml VIAL (BENADRYL) IV ONE (15:59)
[2017-12-10] MEDS ORDERED: Haloperidol INJ IV/IM* 5 MG/ML AMP IM ONE (15:59)
[2017-12-10] MEDS ORDERED: Al Hydrox/Mg Hydrox/Simet LIQ* 30 ML UDC PO PRN (22:15)
[2017-12-10] MEDS ORDERED: Acetaminophen TAB* 325 MG PO PRN ×2 (22:15→22:26)
[2017-12-10] MEDS ORDERED: Bacitracin OINTMENT* 0.5% 0.5 oz TUBE TOPICAL PRN (22:26)
[2017-12-10] MEDS ORDERED: EPINEPHrine AMP 1 MG/ML IM PRN (22:26)
[2017-12-10] MEDS ORDERED: DESONIDE TOPICAL PRN (22:26)
[2017-12-10] MEDS ORDERED: QUEtiapine TAB* 100 MG ONE (22:35)
[2017-12-10] MEDS ORDERED: Divalproex ER TAB(*) 500 MG ONE (22:35)
[2017-12-10] MEDS: Mirtazapine TAB* 15 MG PO SCH (22:36)
[2017-12-10] MEDS ORDERED: diPHENhydraMINE PO* 50 MG ONE (23:59)
[2017-12-10] MEDS ORDERED: chlorproMAZINE TAB* 50 MG ONE (23:59)
[2017-12-11] MEDS: QUEtiapine TAB* 100 MG PO SCH ×3 (07:26→21:50)
[2017-12-11] MEDS: Levothyroxine TAB* 50 MCG TAB PO SCH (07:27)
[2017-12-11] MEDS ORDERED: Lithium Carbonate TAB* 300 MG PO SCH (09:00)
[2017-12-11] MEDS ORDERED: Calcium Carbonate TAB* 1250 MG (CALCIUM 500 MG) PO SCH (09:00)
[2017-12-11] MEDS: Chlorhexidine MOUTHWASH 0.12%* 15 ML UDC SWISH SPIT SCH ×3 (09:47→21:54)
[2017-12-11] MEDS: Cetirizine* 10 MG TAB PO SCH ×2 (09:47→10:47)
[2017-12-11] MEDS: Lactobacillus Acidophilu (GG)* 1 CAP CAP PO SCH ×3 (09:48→21:54)
[2017-12-11] MEDS: Lithium Carbonate TAB* 300 MG PO SCH ×3 (09:48→21:51)
[2017-12-11] MEDS: Sulfamethox/Trimethoprim DS 800/160* TAB PO SCH ×3 (09:49→21:50)
[2017-12-11] MEDS: Sertraline* 50 MG TAB PO SCH ×2 (09:49→10:46)
[2017-12-11] MEDS: Vitamin THERAPEUTIC TAB PO SCH ×2 (09:49→10:46)
--- NOTE | 2017-12-11 10:45 | ADMNOTE ---
History - Objective HPI: Psychiatric Attending History and Physical NAME: Hakeem Esparza : 1995 AGE: 22 PROVIDER: Dwight Jose D.O. DATE OF ADMISSION: 12/11/2017 JUSTIFICATION FOR ADMISSION: steadily increasing frequency and severity of self injurious behavior which is posing threat to patient's safety and requires inpatient level of psychiatric treatment for 24 hour observation/supervisioin and stabalization. HISTORY OF THE PRESENT ILLNESS: 22 yo single male with a history of Seizure Disorder, Autism, Intellectual Disability, OCD, Persistent self injurious behavior who was referred to ED for evaluation of increased severity and frequency of self injurious behavior over the past few weeks (biting self, pinching self, banging his head repeatedly,picking skin till he bleeds). patient lives in a [facility], is non verbal and has long standing history of self injuriious behavior, agitation, behavioral dyscontrol which have been worked up medically in past without any medical cause being found. Patient's motor restlessness, agression, and impaired judgment necessitate that he has one to one supervision 24 hours daily. In his fpc setting, restrictive equipment is used to prevent patient from self injury. patient arrived in ED yesterday afternoon accompanied by his mother and residential staff. He became combative and was self injuring. Dr. Wilde, was the evaluating hospitalist. Patient was administered Haldol 5 mg and Benadryl 50 mg both IM with good effect. Patient was cleared medically by hospitalist and transferred to [facility] Unit where he was assessed by social services assistant who disucssed case with outpatient psychiatrist Dr. Lozano. It was felt that patient required admission due to increasing danger to self. Patient was admitted on voluntary status as his mother has power to make medical decisions on patient's behalf. Once on the floor patient did require thorazine 50 mg and benadryl 50 mg for agitation given orally with good effect. Per Dr. Lozano patient's depakote was taperd and discontinued 2 weeks ago due to concern that it might be exaacerbating his agitation and also becuase of elevated Ammonia. Off Depakote patient had increased frequency of generalized seizures and therefore Depakote was restarted. PAST PSYCHIATRIC HISTORY: Patient has been admitted to [facility] three times previously: 2008, 02/2013 and 03/2013. His medication is currently managed by Dr. Diana Lozano. SUBSTANCE ABUSE HISTORY: none PAST MEDICAL HISTORY: Miild Anemia History of thyroid disease (no further infomation available at the time) Seasonal Allergies [place] teeth extraction in past History of "suspected" MRSA infection in past. CURRENT MEDICATIONS: Depakote DR 1500 mg po QHS Remeron 15 mg QHS Seroquel 400 mg QHS and 200 mg BID [place] Carbonate 900 mg BID Zoloft 50 mg AM Thorazine 50 mg po Q4h prn agiation Benadryl 50 mg po Q4h prn agiation ALLERGIES: "benzodiazepines" Bee Venom Hydroxyzine FAMILY PSYCHIATRIC HISTORY: none known FAMILY/PSYCHOSOCIAL HISTORY: no information available at time of this evaluation REVIEW OF SYSTEMS: all noncontributory per hospitalist Dr. Shima Craft performed in the ED on 12/10/2017 PHYSICAL EXAMINATION: UNREMARKABLE (NORMAL PHYSICAL EXAMINATION) per hospitalist Dr. Shima Craft performed in the ED on 12/10/2017 MENTAL STATUS EXAMINATION: well developed, slim 22 year old dressed casually in jeans and sweatshirt. patient was lying on his side on bed and was repetetively tearing newspaper in a specific pattern. The newspaper was being handed to him by an individual named David who is assigned to supervise patient. patient is mute. stereotypies observed. Patient mostly does not respond when addressed but rather rocks and continues tearing newspaper. There is a raised area of induration with a scab in the center of his forehead which represents chronic lesion from head banging. patient has fair hygiene. He was able to point to the apple on his tray when I asked him where the apple was. He ate small portion of his lunch and then threw the rest of his tray out in the garbage. Patient was in constant motion. His back office medical assistant told me that Hakeem is always in constant motion, has to be doing something and becomes easily agitated if he is idle or without something to do. he rarely watches TV as he has an attention span of 10 to 15 seconds. Mood unknown as patient was non verbal. patient's affect revealed limited repetoire and range of affect(ie. flat). There was no indication that he was experiencing auditory or visual hallucinations. He did not appear fearful or paranoid. He also showed no evidence of stranger anxiety and appeared fairly comfortable with my presence during the interview. patient is alert. His intellectual impairment renders him incapable of being oriented to time, place, date,month or year. patient's insight and judgment are grossly impaired secondary to profound intellectual impairment. LABORATORY DATA: cbc, cmp, and UA were within normal limits with exception of the following labs: Free T4 0.61 (0.61-1.1) T4 5.07 (6-12) Ammonia 92 (16-53) IMPRESSION: 22 yo male with history of Seizure Disorder, ID, Austism, chronic Self injury/ Self mutilation, OCD presents with increase frequency/seveity of self injurious behavior and agitation for several weeks. Patient is admitted for stabalization and treatment as he is danger to self and requires imminent inpatient level of hospital care. Consideration should be given to existence of bipolar disorder in this young man as rose often present as episodic agression/agitation in patient's who are developmentally disabled and nonverbal. DIAGNOSES: Autism Spectrum Disorder Intellectual Disorder Seizure Disorder OCD (by history) Self Injurious Behavior rule out bipolar rose PLAN: Admit to [facility] on q 15 min observation on voluntary status (mother is conservator and signed voluntary papers) one to one supervision with staff from fpc will continue while patient is on the unit Will not integrate patient into groups as this is not appropriate programming given his level of functioning and it might further trigger patient's behaviors. additionally, patient's behaviors could be traumatic for other patient's on the unit. I have spoken with Dr. Lozano who has informed me that he is investigating possiblity of transferring patient to medical bed where physical restraints can be used in case they are required In the meantime I will continue patient's current medication regimen unchanged Dr. Lozano requested neurololgy consultation in order to determine whether depakote should be replaced by another anticonvulsant given hyperammonemia. 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 will add depakote and lithium levels to blood drawn yesterday Plan - Treatment Plan Medications: Current Medications Acetaminophen (Tylenol Tab*) 650 mg PO Q4H PRN PRN Reason: PAIN or TEMP > 101 F Al Hydrox/Mg Hydrox/Simethicone (Maalox Plus*) 30 ml PO Q4H PRN PRN Reason: INDIGESTION Bacitracin (Bacitracin Ointment*) 1 applic TOPICAL BID PRN PRN Reason: WOUND CARE Calcium Carbonate (Calcium Carbonate Tab*) 1,250 mg PO DAILY [facility] Cetirizine HCl (Zyrtec*) 10 mg PO DAILY [facility] Chlorhexidine Gluconate (Peridex Mouth Wash 0.12%*) 10 ml SWISH SPIT BID CARLOS A Chlorpromazine HCl (Thorazine Tab*) 50 mg PO Q4H PRN PRN Reason: AGITATION Desonide (Desonide 0.005% Oint(Nf)) 1 applic TOPICAL TID PRN PRN Reason: ITCHING Diphenhydramine HCl (Benadryl Po*) 50 mg PO Q4H PRN PRN Reason: .AGITATION Divalproex Sodium (Depakote Dr Tab(*)) 1,500 mg PO BEDTIME [facility] Epinephrine HCl (Epinephrine Amp 1 Mg/Ml*) 0.3 mg IM ONCE PRN PRN Reason: Allergic Reaction Symptoms Lactobacillus Rhamnosus (Culturelle*) 1 cap PO BID [facility] Levothyroxine Sodium (Synthroid Tab*) 50 mcg PO DAILY@0600 [facility] Last Admin: 12/11/17 07:27 Dose: 50 mcg [place] Carbonate ([place] Carbonate Tab*) 900 mg PO BID [facility] Mirtazapine (Remeron Tab*) 15 mg PO BEDTIME [facility] Last Admin: 12/10/17 22:36 Dose: 15 mg Multivitamins (Theragran Tab*) 1 tab PO DAILY [facility] Quetiapine Fumarate (Seroquel Tab*) 400 mg PO BEDTIME [facility] Quetiapine Fumarate (Seroquel Tab*) 200 mg PO BID@0700,1200 [facility] Last Admin: 12/11/17 07:26 Dose: 200 mg Sertraline HCl (Zoloft*) 50 mg PO DAILY [facility] Trimethoprim/Sulfamethoxazole (Bactrim Ds 800/160 Tab*) 1 tab PO BID [facility]
[2017-12-11] MEDS: Calcium Carbonate TAB* 1250 MG (CALCIUM 500 MG) PO SCH (10:47)
--- NOTE | 2017-12-11 16:56 | ED ---
Alberto Ledesma Angela, scribed for Moises Wilde MD on 12/10/17 at 1553 . Psychiatric Complaint - HPI Summary HPI Summary: This pt is a 22 y/o male, accompanied by [facility] staff and caretakers, presenting to [facility] for increased aggressive behavior. Pt has a history for severe autism and self injury. Pt is followed up by Dr. Lozano. Caretakers report that the pt has had an increased in self injurious behavior where the pt hits his head over and over again. Caretakers have implemented a helmet and arm guards to prevent pt from sustaining an injury. Additionally pt has also been biting and pinching himself. [facility] staff reports it is unsafe for the other patients in their assisted and himself. Pt had blood work done this morning at [facility]. Allergies include benzodiazepine. HPI IS LIMITED DUE TO LEVEL 5 CAVEAT - pt has severe autism - History Of Current Complaint Chief Complaint: EDPsychosocial Time Seen by Provider: 12/10/17 15:43 Hx Obtained From: Family/Director Web Hx From Patient Unobtainable Due To: Other - Level 5 caveat - severe autism Onset/Duration: Lasting Days, Still Present Timing: Days Severity Currently: Severe Character: Stuporous Aggravating Factor(s): Nothing Alleviating Factor(s): Nothing - Allergies/Home Medications Allergies/Adverse Reactions: Allergies Allergy/AdvReac Type Severity Reaction Status Date / Time Benzodiazepines Allergy Severe "PROFOUND Verified 12/05/17 08:43 AGGITATION" MS Bee Venom [Bee Venom] Allergy Intermediate Unknown Verified 11/02/17 13:59 Reaction Details MS Hydroxyzine [Hydroxyzine] Allergy Unknown Verified 11/02/17 13:59 Reaction Details MS Lactose Intolerance (GI) Allergy GI upset Verified 11/02/17 13:59 [Lactose Intolerance (GI)] MS Clonazepam [Clonazepam] AdvReac profound Verified 11/02/17 13:59 agitation MS Lorazepam [Lorazepam] AdvReac profound Verified 11/02/17 13:59 agitation Home Medications: Home Medications Acetaminophen TAB* [Tylenol TAB*] 650 mg PO Q4H PRN 12/10/17 [History Confirmed 12/10/17] Bacitracin OINTMENT* 1 applic TOPICAL BID PRN 12/10/17 [History Confirmed ] Calcium Carbonate TAB* 500 mg PO DAILY 12/10/17 [History Confirmed 12/10/17] Chlorhexidine MOUTHWASH 0.12%* [Peridex Mouth Wash 0.12%*] 10 ml PO BID [History Confirmed 12/10/17] Desonide 0.005% OINT(NF) 0.05 % TOPICAL TID PRN 12/10/17 [History Confirmed ] EPINEPHrine SYR* [EPINEPHphrine SYR*] 0.3 mg IM ONCE PRN 12/10/17 [History Confirmed 12/10/17] Hydrocortisone 1% CREAM* [Hytone Cream 1%*] 1 applic TOPICAL TID 12/10/17 [ History Confirmed 12/10/17] Lactobacil 2-S.thermo-Bifido 1 [Vsl#3] 1 cap PO BID 12/10/17 [History Confirmed 12/10/17] LoraTADine TAB(NF) [Claritin 10 MG TAB(NF)] 10 mg PO DAILY 12/10/17 [History Confirmed 12/10/17] Mineral Oil STERILE* [Sterile Mineral Oil*] 5 drop BOTH EARS QPM 12/10/17 [ History Confirmed 12/10/17] Mirtazapine TAB* [Remeron TAB*] 15 mg PO BEDTIME [facility] 15mg 12/10/17 [History Confirmed 12/10/17] Multivit,Calc,Mins/Iron/Folic [Therapeutic-M Caplet] 1 tab PO DAILY 12/10/17 [ History Confirmed 12/10/17] QUEtiapine TAB* [SEROquel TAB*] 200 mg PO BID 12/10/17 [History Confirmed ] QUEtiapine TAB* [SEROquel TAB*] 400 mg PO BEDTIME 12/10/17 [History Confirmed ] Sertraline* [Zoloft*] 50 mg PO DAILY 12/10/17 [History Confirmed 12/10/17] PMH/Surg Hx/FS Hx/Imm Hx Endocrine/Hematology History: Reports: Hx Thyroid Disease, Hx Anemia - MILDLY IN THE PAST Denies: Hx Anticoagulant Therapy, Hx Diabetes Cardiovascular History: Denies: Hx Congestive Heart Failure, Hx Deep Vein Thrombosis, Hx Hypertension , Hx Myocardial Infarction, Hx Pacemaker/ICD, Other Cardiovascular Problems/ Disorders Respiratory History: Reports: Hx Seasonal Allergies Denies: Hx Asthma, Hx Chronic Obstructive Pulmonary Disease (COPD), Hx Lung Cancer, Hx Pneumonia, Hx Pulmonary Embolism GI History: Reports: Hx Gastroesophageal Reflux Disease - IN THE PAST, Hx Irritable Bowel - POSSIBLE, CHRONIC DIARHEA AND CONSTAPATION, Other GI Disorders - possible gerd Denies: Hx Gall Bladder Disease, Hx Gastrointestinal Bleed, Hx Ulcer, Hx Urosepsis History: Denies: Hx Kidney Stones, Hx Renal Disease, Other Problems/Disorders Musculoskeletal History: Denies: Other Musculoskeletal History Sensory History: Denies: Hx Contacts or Glasses Opthamlomology History: Denies: Hx Contacts or Glasses Neurological History: Reports: Hx Developmental Delay, Hx Migraine, Hx Seizures - NEW ONSET- A YR AGO, Other Neuro Impairments/Disorders - SEVERE AUTISM Denies: Hx Dementia, Hx Transient Ischemic Attacks (TIA) Psychiatric History: Reports: Hx Anxiety - ANXIETY WITH AUTISM, Hx Inpatient Treatment, Hx Community Mental Health Tx, Hx Bipolar Disorder, Hx of Violent Episodes Against Others, Other Psychiatric Issues/Disorders - Autism Denies: Hx Depression, Hx Panic Disorder, Hx Schizophrenia - Surgical History Surgery Procedure, Year, and Place: WISDOM TEETH EXTRACTIONS Hx Anesthesia Reactions: No - Immunization History Date of Tetanus Vaccine: 09/2006 Infectious Disease History: No Infectious Disease History: Reports: Hx of Known/Suspected MRSA Denies: Hx Clostridium Difficile, Hx Hepatitis, Hx Human Immunodeficiency Virus (HIV), Hx Shingles, Hx Tuberculosis, Hx Known/Suspected VRE, Hx Known/ Suspected VRSA, History Other Infectious Disease, Traveled Outside the [place] in Last 30 Days - Family History Known Family History: Positive: Unknown - due to level 5 caveat - severe autism Negative: Cardiac Disease, Hypertension, Diabetes, Renal Disease, Respiratory Disease, Seizure Disorder, Blood Disorder, Other Family History: staff with family history, pt unable to report hx - Social History Alcohol Use: None Substance Use Type: Reports: None Smoking Status (MU): Never Smoked Tobacco Have You Smoked in the Last Year: No Review of Systems - ROS Summary Review of Systems Summary: ROS IS LIMITED DUE TO LEVEL 5 CAVEAT - pt has severe autism Negative: Fever Psychological: Other - self injuries All Other Systems Reviewed And Are Negative: Yes Physical Exam - Summary Physical Exam Summary: VITAL SIGNS: Reviewed. GENERAL: Patient is a nourished male who has severe autism. HEAD AND FACE: A small abrasion on the forehead secondary to his continued self injuries. Pt also has a small abrasion on his nasal cavity. EYES: PERRLA, EOMI x 2, No injected conjunctiva, no nystagmus. EARS: Hearing grossly intact. Ear canals and tympanic membranes are within normal limits. MOUTH: Oropharynx within normal limits. NECK: Supple, trachea is midline, no adenopathy, no JVD, no carotid bruit, no c- spine tenderness, neck with full ROM. CHEST: Symmetric, no tenderness at palpation LUNGS: Clear to auscultation bilaterally. No wheezing or crackles. CVS: Regular rate and rhythm, S1 and S2 present, no murmurs or gallops appreciated. ABDOMEN: Soft, non-tender. No signs of distention. No rebound no guarding, and no masses palpated. Bowel sounds are normal. EXTREMITIES: FROM in all major joints, no edema, no cyanosis or clubbing. NEURO: Alert and oriented. Pt has severe autism. SKIN: Dry and warm Triage Information Reviewed: Yes Vital Signs On Initial Exam: Initial Vitals Temp Pulse Resp BP Pulse Ox 97 F 110 17 122/64 99 12/10/17 15:06 12/10/17 15:06 12/10/17 15:06 12/10/17 15:06 12/10/17 15:06 Vital Signs Reviewed: Yes Completion Of Physical Exam Limited Due To: Level 5 - severe autism Diagnostics - Vital Signs Vital Signs Temp Pulse Resp BP Pulse Ox 12/10/17 15:06 97 F 110 17 122/64 99 - Laboratory Lab Statement: Any lab studies that have been ordered have been reviewed, and results considered in the medical decision making process. Course/Dx - Course Assessment/Plan: This pt is a 22 y/o male, accompanied by [facility] staff and caretakers, presenting to [facility] for increased aggressive behavior. Pt has a history for severe autism and self injury. Pt is followed up by Dr. Lozano. Caretakers report that the pt has had an increased in self injurious behavior where the pt hits his head over and over again. Caretakers have implemented a helmet and arm protections to prevent pt from sustaining an injury. Additionally pt has also been biting and pinching himself. [facility] staff reports it is unsafe for the other patients in their assisted and himself. Pt had blood work done this morning at [facility]. Allergies include benzodiazepine. HPI IS LIMITED DUE TO LEVEL 5 CAVEAT - pt has severe autism. Blood work within normal limits. Pt is medically cleared. I discussed the case with Dr. Jose, psychiatrist covering for Dr. Lozano, who reports that as soon as the medication list and mental health evaluation is done, the pt can be transferred upstairs for admission. Pt will be signed out to Dr. Sanchez awaiting the MHE. - Differential Dx/Clinical Impression Provider Diagnosis: Aggressive behavior - Physician Notifications Discussed Care Of Patient With: Dwight Jose Time Discussed With Above Provider: 18:55 Instructed by Provider To: Other - I discussed the case with Dr. Jose, psychiatrist covering for Dr. Lozano, who reports that as soon as the medication list and mental health evaluation is done, the pt can be transferred upstairs. He will admit the hospitalist. Discharge - Discharge Plan Condition: Stable Disposition: OTHER Discharge Disposition Comment: signed out to Dr. Sanchez, pending dispo, awaiting MHE. Referrals: Lida Pedersen MD [Primary Care Provider] - The documentation as recorded by the Alberto hill Angela accurately reflects the service I personally performed and the decisions made by me, Moises Wilde MD.
[2017-12-11] MEDS ORDERED: Divalproex DR TAB(*) 250 MG PO SCH (21:00)
[2017-12-11] MEDS: Mirtazapine TAB* 15 MG PO SCH (21:49)
[2017-12-11] MEDS: Divalproex DR TAB(*) 500 MG PO SCH (21:51)
[2017-12-11] MEDS: Propranolol TAB* 10 MG PO SCH (21:56)
[2017-12-12] MEDS: Levothyroxine TAB* 50 MCG TAB PO SCH (09:07)
[2017-12-12] MEDS: QUEtiapine TAB* 100 MG PO SCH ×3 (09:07→22:31)
[2017-12-12] MEDS: Sertraline* 50 MG TAB PO SCH (09:08)
[2017-12-12] MEDS: Calcium Carbonate TAB* 1250 MG (CALCIUM 500 MG) PO SCH (09:08)
[2017-12-12] MEDS: Cetirizine* 10 MG TAB PO SCH (09:08)
[2017-12-12] MEDS: Sulfamethox/Trimethoprim DS 800/160* TAB PO SCH ×2 (09:08→22:31)
[2017-12-12] MEDS: Vitamin THERAPEUTIC TAB PO SCH (09:08)
[2017-12-12] MEDS: Lithium Carbonate TAB* 300 MG PO SCH ×2 (09:08→22:31)
[2017-12-12] MEDS: Propranolol TAB* 10 MG PO SCH ×2 (09:09→22:31)
[2017-12-12] MEDS: Lactobacillus Acidophilu (GG)* 1 CAP CAP PO SCH ×2 (09:09→22:31)
[2017-12-12] MEDS: Chlorhexidine MOUTHWASH 0.12%* 15 ML UDC SWISH SPIT SCH ×2 (09:30→22:31)
[2017-12-12] MEDS: chlorproMAZINE TAB* 50 MG PO PRN ×2 (11:17→19:17)
[2017-12-12] MEDS: diPHENhydraMINE PO* 50 MG PO PRN ×2 (11:17→19:17)
--- NOTE | 2017-12-12 13:21 | PN ---
Subjective - Subjective Date of Service: 12/12/17 Service Type: 14070 Hosp care 15 min low complexity Subjective: Asha is seen in weekend coverage for Dr. Jose. The patient is non-verbal and is found alone in his room, shredding newspapers into large piles of strips , strewn across the [place]. His [facility] aide is present and reports that his mother was visiting earlier. Asha later had a hamburger for lunch, which he attempted to flush down the toilet, which is a new behavior for him. The food would not be flushed, so he picked it out and ate it. The aide attempted to intervene and prevent this and he tried to bite her, which is not new behavior. The patient is mostly staying in his room. Objective - Appearance Appearance: Well Developed/Nourished Dysmorphic Features: No Hygiene: Normal Grooming: Fairly Well Kept - Behavior Psychomotor Activities: Abnormal-Increased Exhibits Abnormal Movement: No - Attitude and Relatedness Attitude and Relatedness: Child Like Eye Contact: Poor - Affect Observed Affect: Labile Affect Consistent with: Dysphoria - Thought Process Patient's Thought Process: Disorganized - Level of Consciousness Level of Consciousness: Agitated Orientation: No Intact, No Orientated to Time, No Orientated to Place, No Orientated to Person - Impulse Control Impulse Control: Poor - Insight and Judgement Insight and Judgement: Impaired - Group Participation Particating in Group Activities: No - Medication Management Medication Management Adherence: Yes Assessment - Assessment Merits Inpatient Hospitalization: For Immediate Safety, For Stabilization Inpatient DSM-V Dx: F91.9 Clinical Impression: 22 single, white male with a history of severe intellectual impairment, ASD and destructive, impulsive behavior admitted due to intensification of self- injurious behaviors following some recent medication changes. Plan - Plan Treatment Plan: Name: ASHA TARIQ Birthdate: 1995 [id number] The patient is on lithium, divalproate and quetiapine. We have added propranolol. He has an aide from [facility]. Await neurology consult for recent seizures. Continued Medication Management: Different Medication Medications: Current Medications Acetaminophen (Tylenol Tab*) 650 mg PO Q4H PRN PRN Reason: PAIN or TEMP > 101 F Al Hydrox/Mg Hydrox/Simethicone (Maalox Plus*) 30 ml PO Q4H PRN PRN Reason: INDIGESTION Bacitracin (Bacitracin Ointment*) 1 applic TOPICAL BID PRN PRN Reason: WOUND CARE Calcium Carbonate (Calcium Carbonate Tab*) 1,250 mg PO DAILY [facility] Last Admin: 12/12/17 09:08 Dose: 1,250 mg Cetirizine HCl (Zyrtec*) 10 mg PO DAILY [facility] Last Admin: 12/12/17 09:08 Dose: 10 mg Chlorhexidine Gluconate (Peridex Mouth Wash 0.12%*) 10 ml SWISH SPIT BID [facility] Last Admin: 12/12/17 09:30 Dose: Not Given Chlorpromazine HCl (Thorazine Tab*) 50 mg PO Q4H PRN PRN Reason: AGITATION Last Admin: 12/12/17 11:17 Dose: 50 mg Desonide (Desonide 0.005% Oint(Nf)) 1 applic TOPICAL TID PRN PRN Reason: ITCHING Diphenhydramine HCl (Benadryl Po*) 50 mg PO Q4H PRN PRN Reason: .AGITATION Last Admin: 12/12/17 11:17 Dose: 50 mg Divalproex Sodium (Depakote Dr Tab(*)) 1,500 mg PO BEDTIME [facility] Last Admin: 12/11/17 21:51 Dose: 1,500 mg Epinephrine HCl (Epinephrine Amp 1 Mg/Ml*) 0.3 mg IM ONCE PRN PRN Reason: Allergic Reaction Symptoms Lactobacillus Rhamnosus (Culturelle*) 1 cap PO BID [facility] Last Admin: 12/12/17 09:09 Dose: 1 cap Levothyroxine Sodium (Synthroid Tab*) 50 mcg PO DAILY@0600 [facility] Last Admin: 12/12/17 09:07 Dose: 50 mcg [place] Carbonate ([place] Carbonate Tab*) 900 mg PO BID [facility] Last Admin: 12/12/17 09:08 Dose: 900 mg Mirtazapine (Remeron Tab*) 15 mg PO BEDTIME [facility] Last Admin: 12/11/17 21:49 Dose: 15 mg Multivitamins (Theragran Tab*) 1 tab PO DAILY [facility] Last Admin: 12/12/17 09:08 Dose: 1 tab Propranolol HCl (Inderal Tab*) 10 mg PO BID@09,21 [facility] Last Admin: 12/12/17 09:09 Dose: 10 mg Quetiapine Fumarate (Seroquel Tab*) 400 mg PO BEDTIME [facility] Last Admin: 12/11/17 21:50 Dose: 400 mg Quetiapine Fumarate (Seroquel Tab*) 200 mg PO BID@0700,1200 [facility] Last Admin: 12/12/17 12:50 Dose: 200 mg Sertraline HCl (Zoloft*) 50 mg PO DAILY [facility] Last Admin: 12/12/17 09:08 Dose: 50 mg Trimethoprim/Sulfamethoxazole (Bactrim Ds 800/160 Tab*) 1 tab PO BID [facility] Last Admin: 12/12/17 09:08 Dose: 1 tab - Discharge Plan Discharge Plan: Inpatient Hospitalization
--- NOTE | 2017-12-12 21:46 | CONS ---
CONSULTATION REPORT: DATE OF CONSULT: 12/12/17 PATIENT OF: Dr. Lozano, Dr. Jose, Dr. Wagner, and Dr. Pedersen. HISTORY OF PRESENT ILLNESS: This is a 22-year-old man with a history of ongoing generalized seizures that I was asked to consult on for breakthrough seizures when he was recently off Depakote because of an elevated ammonia and because the Depakote was thought to cause agitation. He is treated by Dr. Lozano who I spoke to yesterday and through his chart. I have a phone call into the mother. The patient also has autism, intellectual disability, OCD, a history of persistent self- injurious behavior. He also has had hypothyroidism as well as mild anemia and was thought to have OCD and possible bipolar rose. He has had a history of hyperammonemia from the Depakote, which has been worse recently. He has also been on Trileptal in the past, which was stopped in part due to hyponatremia and he was having polydipsia at that time according to Dr. Lozano. He has had increased generalized seizures off of the Depakote and Depakote was restarted. MEDICATIONS ON ADMISSION: Include: 1. Depakote 1500 mg q.h.s., it was just restarted. 2. Remeron 15 q.h.s. 3. Seroquel 400 at bedtime and 200 b.i.d. 4. [place] 900 b.i.d. 5. Zoloft 50 mg daily. 6. Thorazine 50 mg p.r.n. agitation. 7. Benadryl 50 mg p.r.n. agitation. ALLERGIES: He is allergic to HYDROXYZINE, BEE VENOM, and "BENZODIAZEPINES." FAMILY HISTORY: Psychiatric disorder is unknown. There is no known history of family medical issues. REVIEW OF SYSTEMS: Unobtainable from the patient, who is nonverbal. There is no substance abuse known. PHYSICAL EXAMINATION: On exam, temperature 97, pulse 115, respirations 16, blood pressure 155/78. He was alert with autistic appearance with poor eye contact. He was not cooperative, but allowed me to listen to his heart and chest. He was moving around his room and would not sit when requested. There is a mound of shredded newspaper in the center of his room. His gait was normal. He moves all extremities with power. He had full extraocular movements. His pupils were reactive to light. There is no ability to do a formal neurological exam on him. Chest: Clear. Cardiovascular: Regular rate, rhythm. There are no rashes. LABORATORY DATA: Labs include normal white count, hemoglobin was 13.4, platelets were 270. Chemistries showed a normal BMP. Normal LFTs. Ammonia was 92. CPK was 107. LDL 51, T3 1.38, T4 5.07, TSH normal. He had benzodiazepines in his system. He had a Depakote of 79. ASSESSMENT: When I discussed his case with Dr. Lozano on yesterday evening, we had discussed going to Trileptal, which would be both good for his behavior possibly and possibly for his seizures; however, because of hyponatremia, we decided that it will make for may be the better long-term medication; however, we discussed that given the fact that Lamictal would take months to slowly achieve a therapeutic dose because of the concern of Compa if we increased it too quickly. What I discussed with Dr. Lozano was a benzodiazepine such as onfi as a bridge. He states that was a reasonable idea and did not note at that time that there was apparent allergy to benzodiazepines. I do not understand the sequence in terms of there was apparently benzodiazepines in his drug screen from 2012, so I know that he has been on it in the past and I need to talk to the mom and have a phone call in to her about if he is truly allergic to benzodiazepines. If he is, then we may need to try a different medicine and if we do not have a bridge medicine, we may try something like Zonegran. So, I will recontact Dr. Wagner once I hear from the mother. It does not sound like the Depakote given his agitation is a good long- term medicine. The elevated ammonia is secondary most likely to Depakote as well, but this would not be an absolute contraindication. The Depakote can also cause hypothyroidism, which he is being treated for but again this would not be an absolute contraindication but would be all the reasons to consider switching medication. Thank you for sharing his case. [id number]/[facility] #: [id number] [facility]
[2017-12-12] MEDS: Mirtazapine TAB* 15 MG PO SCH (22:31)
[2017-12-12] MEDS: Divalproex DR TAB(*) 500 MG PO SCH (22:31)
[2017-12-13] MEDS: Vitamin THERAPEUTIC TAB PO SCH (09:52)
[2017-12-13] MEDS: Sertraline* 50 MG TAB PO SCH (09:52)
[2017-12-13] MEDS: Sulfamethox/Trimethoprim DS 800/160* TAB PO SCH ×2 (09:52→20:05)
[2017-12-13] MEDS: QUEtiapine TAB* 100 MG PO SCH ×3 (09:52→20:05)
[2017-12-13] MEDS: Cetirizine* 10 MG TAB PO SCH (09:53)
[2017-12-13] MEDS: Lithium Carbonate TAB* 300 MG PO SCH ×2 (09:53→20:05)
[2017-12-13] MEDS: Lactobacillus Acidophilu (GG)* 1 CAP CAP PO SCH ×2 (09:54→20:05)
[2017-12-13] MEDS: Calcium Carbonate TAB* 1250 MG (CALCIUM 500 MG) PO SCH (09:54)
[2017-12-13] MEDS: Chlorhexidine MOUTHWASH 0.12%* 15 ML UDC SWISH SPIT SCH ×2 (09:55→20:04)
[2017-12-13] MEDS: Propranolol TAB* 10 MG PO SCH ×2 (09:57→20:08)
[2017-12-13] MEDS: Levothyroxine TAB* 50 MCG TAB PO SCH (11:01)
[2017-12-13] MEDS: chlorproMAZINE TAB* 50 MG PO PRN ×3 (11:32→21:46)
[2017-12-13] MEDS: diPHENhydraMINE PO* 50 MG PO PRN ×3 (11:33→21:46)
[2017-12-13] MEDS: Mirtazapine TAB* 15 MG PO SCH (20:05)
[2017-12-13] MEDS: Divalproex DR TAB(*) 500 MG PO SCH (20:05)
[2017-12-14] MEDS: Chlorhexidine MOUTHWASH 0.12%* 15 ML UDC SWISH SPIT SCH ×2 (09:05→22:13)
[2017-12-14] MEDS: QUEtiapine TAB* 100 MG PO SCH ×3 (09:06→22:19)
[2017-12-14] MEDS: Sertraline* 50 MG TAB PO SCH (09:06)
[2017-12-14] MEDS: Levothyroxine TAB* 50 MCG TAB PO SCH (09:06)
[2017-12-14] MEDS: Vitamin THERAPEUTIC TAB PO SCH (09:06)
[2017-12-14] MEDS: Cetirizine* 10 MG TAB PO SCH (09:06)
[2017-12-14] MEDS: Lithium Carbonate TAB* 300 MG PO SCH ×2 (09:06→22:17)
[2017-12-14] MEDS: Calcium Carbonate TAB* 1250 MG (CALCIUM 500 MG) PO SCH (09:06)
[2017-12-14] MEDS: Propranolol TAB* 10 MG PO SCH ×3 (09:06→17:00)
[2017-12-14] MEDS: Sulfamethox/Trimethoprim DS 800/160* TAB PO SCH ×2 (09:06→22:16)
[2017-12-14] MEDS: Lactobacillus Acidophilu (GG)* 1 CAP CAP PO SCH ×2 (09:09→22:15)
--- NOTE | 2017-12-14 10:31 | PN ---
Subjective - Subjective Subjective: PSYCHIATRIC ATTENDING PROGRESS NOTE: Over weekend patient had episodic self injury per one to one staff and also according to mother frequency and severity of self injury is significantly diminished from what it had been just prior to admission met with mother X 30 minute interview. She showed me video of Tracey which shows significant facial excoriations and prominent bruising of forehead which she reports represents increase in his self injury which was occurring for weeks prior to his admission here. she also reports psychomotor agitation/acceleration, affective dyscontrol, impulsivity, irritability have been incrasingly severe lately. we discussed her medications. agreed to lower and taper zoloft which he has been on for a long time patient had been given depakote 4 to 5 years ago after having Generalized seizures X2. subsequently seizure free and depakote was continued by psychiatrist as it was felt it may also help behavior. patient developed high ammonia and mother questioned whether it was making his behaivor worse. it was therefore tapered [address] Alonzo over 2 weeks. He subsequently had two events. both witnessed. one clearly sounds like a generalized TC seizure. Patient was restarted on Depakote and has been seizure free. Dr. Higuera saw patient over the weekend because of history of polydypsia and hyponatremia he is not in favor of using trileptal which can increase risk for hyponatremia. HIs recommendation would be to start Onfi for acute seizure control now, while slowly titrating Lamictal over next couple of month. plan would be for lamictal to be major agent for seizure control once it was therapeutic and then onfi can be tapered and discontinued. He recommended dosing strategy of 5 mg x 1 day and then 10 mg BId thereafter for the onfi. once patient has received 1 to 2 days of onfi, he recommended discontinuing depakote abruptly MSE: met with patient in his room today one to one healthcare educator also present patient able to point to vera. on TV rocking while he made eye contact with me took my hand and squeezed it when I held it out toward him in order to greet him. less agitated today then he was last week mood is calmer as well Impression: seizure disorder Autism SPectrum Severe Self mutilation/Self Injury Mood Disorder unspecified likely bipolar variant Plan; increase Inderal to 20 mg TID Start onfi 5 mg X 1 tonight and then 5 mg tomorrow in am and then 10 mg BId thereafter if no side effects with onfi, plan is to D/C depakote ER tomorrow night and then discharge on if he is seizure free and SIB remains under control after further Inderal titration. continue other medications unchanged would not recommend swithcing seroquel for risperdal or invega at this time as it would be impossible to determine which medicine was culprit if patient were to develop adverse effects from medication changes.
[2017-12-14] MEDS: chlorproMAZINE TAB* 50 MG PO PRN ×2 (10:47→17:03)
[2017-12-14] MEDS: diPHENhydraMINE PO* 50 MG PO PRN ×2 (10:48→17:03)
[2017-12-14] MEDS ORDERED: EPINEPHRINE 1 MG/ML 1 ML VIAL IM PRN (15:33)
[2017-12-14] MEDS ORDERED: CLOBAZAM 10 MG PO ONE (21:00)
[2017-12-14] MEDS: Divalproex DR TAB(*) 500 MG PO SCH (22:16)
[2017-12-14] MEDS: Mirtazapine TAB* 15 MG PO SCH (22:17)
[2017-12-15] MEDS: Lactobacillus Acidophilu (GG)* 1 CAP CAP PO SCH ×2 (08:35→20:43)
[2017-12-15] MEDS: Levothyroxine TAB* 50 MCG TAB PO SCH (08:35)
[2017-12-15] MEDS: Vitamin THERAPEUTIC TAB PO SCH (08:35)
[2017-12-15] MEDS: Sulfamethox/Trimethoprim DS 800/160* TAB PO SCH ×2 (08:35→20:43)
[2017-12-15] MEDS: Cetirizine* 10 MG TAB PO SCH (08:35)
[2017-12-15] MEDS: Lithium Carbonate TAB* 300 MG PO SCH ×2 (08:36→20:43)
[2017-12-15] MEDS: QUEtiapine TAB* 100 MG PO SCH ×3 (08:36→20:43)
[2017-12-15] MEDS: Propranolol TAB* 10 MG PO SCH ×3 (08:50→18:20)
[2017-12-15] MEDS: Sertraline* 50 MG TAB PO SCH (08:55)
[2017-12-15] MEDS ORDERED: CLOBAZAM 10 MG PO ONE (09:00)
[2017-12-15] MEDS: Calcium Carbonate TAB* 1250 MG (CALCIUM 500 MG) PO SCH (09:03)
[2017-12-15] MEDS: diPHENhydraMINE PO* 50 MG PO PRN ×2 (09:33→19:08)
[2017-12-15] MEDS: chlorproMAZINE TAB* 50 MG PO PRN (09:33)
[2017-12-15] MEDS: Chlorhexidine MOUTHWASH 0.12%* 15 ML UDC SWISH SPIT SCH ×2 (09:36→20:46)
--- NOTE | 2017-12-15 11:48 | PN ---
Subjective - Subjective Subjective: Psychiatric Attending Progress Note: behavior manageable up until 2:30 time frame when patient was self injurious-hitting self in head with hand the behavior was not self limited and was persisting. scabbed wound in forehead was reinjured with minor bleeding. Patient was very agitated and subsequently assaultive to staff necessitating manual restraint to prevent patient from further injuring self or others. Multiple staff members involved in restraint which started at 14:28 and was discontinued at 14:41. Patient received Haldol 5 mg and Benadryl 50 mg IM in Left Gluteus muscle during the restraint with good effect. patient regained behavioral control. Vital Signs today: Vital Signs: Temp Pulse Resp BP Pulse Ox 97 F 88 16 110/70 99 12/10/17 21:53 12/15/17 12:20 12/15/17 09:33 12/15/17 12:20 12/10/17 21:53 MSE: patient is in no acute distress He is restless, sitting up in bed He makes some gutteral noises but is otherwise mute He responds to verbal stimuli by turning his head toward the stimulus or at times by nodding or pointing to communicate his needs stereotypies visible such as rocking impulse control impaired Impression: Autism Intellectual Disorder severe Seizure Disorder (generalized) Behavioral/Affective dyscontrol likely secondary to Affective disorder (bipolar unspecified) Plan; Onfi going to 10 mg BID starting tonight Inderal to be increased to 40 mg BID starting tomorrow Depakote 1000 mg tonight and then discontinue Will Start Lamictal 25 mg QAM on 12/17/2017 increase thorazine to 100 mg with benadryl 50 mg q4h prn agitation all other medications unchanged will hold on blood level for now as patient becomes severely agitated Assessment - Assessment Inpatient DSM-V Dx: F91.9
[2017-12-15] MEDS ORDERED: Haloperidol INJ IV/IM* 5 MG/ML AMP IM ONE (14:30)
[2017-12-15] MEDS ORDERED: diPHENhydraMINE IV* 50 MG/ML 1 ml VIAL (BENADRYL) ONE (14:30)
[2017-12-15] MEDS ORDERED: diPHENhydraMINE IV* 50 MG/ML 1 ml VIAL (BENADRYL) IM ONE (14:30)
[2017-12-15] MEDS ORDERED: Haloperidol INJ IV/IM* 5 MG/ML AMP ONE (14:31)
[2017-12-15] MEDS ORDERED: chlorproMAZINE TAB* 100 MG PO PRN (15:09)
[2017-12-15] MEDS: Mirtazapine TAB* 15 MG PO SCH (20:43)
[2017-12-15] MEDS: CLOBAZAM 10 MG PO SCH (20:48)
[2017-12-15] MEDS ORDERED: Divalproex DR TAB(*) 500 MG PO SCH (21:00)
[2017-12-16] MEDS: Sulfamethox/Trimethoprim DS 800/160* TAB PO SCH ×2 (09:10→21:47)
[2017-12-16] MEDS: Levothyroxine TAB* 50 MCG TAB PO SCH (09:10)
[2017-12-16] MEDS: Vitamin THERAPEUTIC TAB PO SCH (09:11)
[2017-12-16] MEDS: Lactobacillus Acidophilu (GG)* 1 CAP CAP PO SCH ×2 (09:11→21:46)
[2017-12-16] MEDS: Lithium Carbonate TAB* 300 MG PO SCH ×2 (09:11→21:45)
[2017-12-16] MEDS: Sertraline* 50 MG TAB PO SCH (09:12)
[2017-12-16] MEDS: Cetirizine* 10 MG TAB PO SCH (09:12)
[2017-12-16] MEDS: Calcium Carbonate TAB* 1250 MG (CALCIUM 500 MG) PO SCH (09:12)
[2017-12-16] MEDS: Chlorhexidine MOUTHWASH 0.12%* 15 ML UDC SWISH SPIT SCH ×2 (09:16→21:47)
[2017-12-16] MEDS: Propranolol TAB* 40 MG PO SCH ×2 (09:17→21:49)
[2017-12-16] MEDS: QUEtiapine TAB* 100 MG PO SCH ×3 (09:18→21:45)
[2017-12-16 09:46] VITALS: BP 118/65
[2017-12-16] MEDS: CLOBAZAM 10 MG PO SCH ×2 (09:48→21:44)
--- NOTE | 2017-12-16 10:36 | PN ---
Subjective - Subjective Subjective: Psychiatric Attending Progress Note: patient has been calmer, less hyperactive, less agitated in the hospital then he had been prior to admission. He did have another episode of agitation and selfinjury at around noon today which required manual restraint followed by IM injection of Thorazine and Benadryl with good effect. However according to child care group leader and mother whom I spoke with at length today, araceli has been having multiple episodes of agitation with self injury daily requiring mechanical restraint equipment and helmet use. Per mother, patient has had periods for up to 2 years without any SIB. MSE: no change from yesterday patient is fully alert He regarded me when I entered the room by making eye contact no longer agitated no seizure activity noted Impression: Autism spectrum Disorder Bipolar unspecified Self Inurious Behavior in the context of episodic agitation likely secondary to affective disorder Seizure Disorder Plan: continue with antiseizure medication titration and Inderal titration for mood stabalization as follows Patient had last dose of Depakote DR 1000 mg last night. Depakote has been discontinued Onfi now at 10 mg BID To start Lamictal 25 mg in AM If patient remains seizure free for 36 hours after discontinuation of depakote, plan is to discharge him. this would bring us to tomorrow afternoon as likely discharge assuming he remains seizure free. Inderal currently at 40 mg BID. Plan would be to increase by 40 mg weekly until he reaches 120 mg BID. at that point patient should have EKG before titrating any further. lithium level, uric acid level (to rule out lesh nyhan), hemeglobin a1c and ammonia level ordered for tonight all other medications unchanged will increase zoloft back to 50 mg as mother reports that zoloft has helped to diminish excessive masterbation and other rituals. Assessment - Assessment Inpatient DSM-V Dx: F91.9
[2017-12-16] MEDS ORDERED: chlorproMAZINE INJ* 25 MG/ML 2 ML (50 MG) IM ONE (12:27)
[2017-12-16] MEDS ORDERED: chlorproMAZINE INJ* 25 MG/ML 2 ML (50 MG) ONE (12:27)
[2017-12-16] MEDS ORDERED: diPHENhydraMINE IV* 50 MG/ML 1 ml VIAL (BENADRYL) ONE (12:27)
[2017-12-16] MEDS ORDERED: diPHENhydraMINE IV* 50 MG/ML 1 ml VIAL (BENADRYL) IM ONE (12:27)
[2017-12-16] MEDS ORDERED: Divalproex ER TAB(*) 500 MG PO ONE (21:00)
[2017-12-16] MEDS: Mirtazapine TAB* 15 MG PO SCH (21:46)
[2017-12-17] MEDS: Lactobacillus Acidophilu (GG)* 1 CAP CAP PO SCH (09:00)
[2017-12-17] MEDS: Sulfamethox/Trimethoprim DS 800/160* TAB PO SCH (09:00)
[2017-12-17] MEDS: Levothyroxine TAB* 50 MCG TAB PO SCH (09:00)
[2017-12-17] MEDS: CLOBAZAM 10 MG PO SCH (09:00)
[2017-12-17] MEDS: Chlorhexidine MOUTHWASH 0.12%* 15 ML UDC SWISH SPIT SCH (09:00)
[2017-12-17] MEDS ORDERED: Sertraline* 50 MG TAB PO SCH (09:00)
[2017-12-17] MEDS: Vitamin THERAPEUTIC TAB PO SCH (09:00)
[2017-12-17] MEDS: Calcium Carbonate TAB* 1250 MG (CALCIUM 500 MG) PO SCH (09:01)
[2017-12-17] MEDS: Propranolol TAB* 40 MG PO SCH (09:01)
[2017-12-17] MEDS: Cetirizine* 10 MG TAB PO SCH (09:01)
[2017-12-17] MEDS: Lithium Carbonate TAB* 300 MG PO SCH (09:01)
[2017-12-17] MEDS: QUEtiapine TAB* 100 MG PO SCH (10:37)
[2017-12-17] MEDS ORDERED: lamoTRIgine TAB(*) 25 MG PO ONE (10:52)
[2017-12-17] MEDS ORDERED: lamoTRIgine TAB(*) 25 MG ONE (10:58)
--- NOTE | 2017-12-17 12:23 | DS ---
Treatment Course & Assessment Inpatient DSM-V Dx: F91.9 Discharge Planning - Discharge Planning Medications: Current Medications Acetaminophen (Tylenol Tab*) 650 mg PO Q4H PRN PRN Reason: PAIN or TEMP > 101 F Al Hydrox/Mg Hydrox/Simethicone (Maalox Plus*) 30 ml PO Q4H PRN PRN Reason: INDIGESTION Bacitracin (Bacitracin Ointment*) 1 applic TOPICAL BID PRN PRN Reason: WOUND CARE Calcium Carbonate (Calcium Carbonate Tab*) 1,250 mg PO DAILY [facility] Last Admin: 12/17/17 09:01 Dose: 1,250 mg Cetirizine HCl (Zyrtec*) 10 mg PO DAILY [facility] Last Admin: 12/17/17 09:01 Dose: 10 mg Chlorhexidine Gluconate (Peridex Mouth Wash 0.12%*) 10 ml SWISH SPIT BID [facility] Last Admin: 12/17/17 09:00 Dose: 10 ml Chlorpromazine HCl (Thorazine Tab*) 100 mg PO Q4H PRN PRN Reason: AGITATION Last Admin: 12/15/17 19:08 Dose: 100 mg Clobazam (Onfi Tab(Nf)) 10 mg PO 0900,2100 [facility] Last Admin: 12/17/17 09:00 Dose: 10 mg Desonide (Desonide 0.005% Oint(Nf)) 1 applic TOPICAL TID PRN PRN Reason: ITCHING Diphenhydramine HCl (Benadryl Po*) 50 mg PO Q4H PRN PRN Reason: .AGITATION Last Admin: 12/15/17 19:08 Dose: 50 mg Epinephrine HCl (Adrenalin 1 Mg/Ml) 0.3 mg IM ONCE PRN PRN Reason: Allergic Reaction Symptoms Lactobacillus Rhamnosus (Culturelle*) 1 cap PO BID [facility] Last Admin: 12/17/17 09:00 Dose: 1 cap Levothyroxine Sodium (Synthroid Tab*) 50 mcg PO DAILY@0600 [facility] Last Admin: 12/17/17 09:00 Dose: 50 mcg Gueydan Carbonate (Gueydan Carbonate Tab*) 900 mg PO BID [facility] Last Admin: 12/17/17 09:01 Dose: 900 mg Mirtazapine (Remeron Tab*) 15 mg PO BEDTIME [facility] Last Admin: 12/16/17 21:46 Dose: 15 mg Multivitamins (Theragran Tab*) 1 tab PO DAILY [facility] Last Admin: 12/17/17 09:00 Dose: 1 tab Propranolol HCl (Inderal Tab*) 40 mg PO BID@, [facility] Last Admin: 12/17/17 09:01 Dose: 40 mg Quetiapine Fumarate (Seroquel Tab*) 400 mg PO BEDTIME [facility] Last Admin: 12/16/17 21:45 Dose: 400 mg Quetiapine Fumarate (Seroquel Tab*) 200 mg PO BID@0700,1200 [facility] Last Admin: 12/17/17 10:37 Dose: 200 mg Sertraline HCl (Zoloft*) 50 mg PO DAILY [facility] Last Admin: 12/17/17 09:00 Dose: 50 mg Trimethoprim/Sulfamethoxazole (Bactrim Ds 800/160 Tab*) 1 tab PO BID [facility] Last Admin: 12/17/17 09:00 Dose: 1 tab Discharge Planning: Prescriptions provided for discharge [] Yes [] No Follow up care details as per social work arrangements. Patient response to discharge plan: [] eager for discharge [] agreeable with discharge plan [] ambivalent about discharge [] disagrees with discharge today
== END 2017-12-17 12:30 | disposition home or self-care (01) | DRG 758 ==
LOC: ED 14:44 → BSU 21:53
PROVIDERS: ADMIT Psychiatry & Neurology Psychiatry; ATTEND Psychiatry & Neurology Psychiatry
DX: F91.9 Conduct disorder, unspecified (principal); F79 Unspecified intellectual disabilities; E03.9 Hypothyroidism, unspecified; G40.909 Epilepsy, unspecified, not intractable, without status epilepticus; F84.0 Autistic disorder; F31.9 Bipolar disorder, unspecified; F42.9 Obsessive-compulsive disorder, unspecified; Z79.899 Other long term (current) drug therapy; Z88.8 Allergy status to other drugs, medicaments and biological substances; Z91.030 Bee allergy status
CPT/HCPCS: 99222; 99231; 99238; 99285; A9270-GY; J0171; J1200; J1630

== ENCOUNTER 2018-01-06 18:27 | Emergency (ER) | payer BC, MEDICAID ==
--- NOTE | 2018-01-06 19:59 | RAD ---
INDICATION: Tachycardia. COMPARISON: There are no prior studies available for comparison. TECHNIQUE: A portable view of the chest was obtained. FINDINGS: Cardiac and mediastinal contours appear to be within normal limits. There is a round infiltrate in the right upper lobe. The left lung appears clear. The lungs are underinflated. No pleural effusion is seen. IMPRESSION: ROUND RIGHT UPPER LOBE INFILTRATE, RECOMMEND FOLLOW-UP CHEST X-RAYS TO RESOLUTION.
[2018-01-06] MEDS ORDERED: CLOBAZAM 10 MG PO ONE (21:14)
[2018-01-06] MEDS ORDERED: Doxycycline (NF) 100 MG TAB PO ONE ×2 (21:59→22:00)
[2018-01-06] MEDS ORDERED: Clobazam TAB (NF) 10 MG TAB ONE (22:00)
[2018-01-06] MEDS ORDERED: DOXYcycline CAP(*) 100 MG ONE (22:19)
--- NOTE | 2018-01-06 22:35 | ED ---
Liliam Ledesma Edward, scribed for Maico Sawyer MD on 01/06/18 at 1935 . Palpitations / Dysrhythmia - HPI Summary HPI Summary: 22 y/o male presents to the ED c/o increased HR starting earlier today. Pt has a fever in the ED. Pt is otherwise asymptomatic. Sx not aggravated or alleviated by anything. Denies diarrhea. Denies PMHx infections. HR in the ED 102. PMHx severe autism. Pt accompanied by aides. Pt is on Lamotrigine, lithium carbonate, and levothyroxine. - History of Current Complaint Chief Complaint: EDDysrhythmPalp Time Seen by Provider: 01/06/18 19:30 Hx Obtained From: Patient Onset/Duration: Lasting Hours Character: Fast Aggravating: Nothing Alleviating: Nothing Associated Signs & Symptoms: Negative - Allergy/Home Medications Allergies/Adverse Reactions: Allergies Allergy/AdvReac Type Severity Reaction Status Date / Time bee venom protein (honey bee) Allergy Intermediate Unknown Verified 12/11/17 13: 48 Reaction Details clonazepam Allergy profound Verified 12/11/17 13:48 agitation hydroxyzine Allergy Unknown Verified 12/11/17 13:48 Reaction Details lactose Allergy GI Upset Verified 12/11/17 13:48 lorazepam Allergy profound Verified 12/11/17 13:48 agitation PMH/Surg Hx/FS Hx/Imm Hx Previously Healthy: No Endocrine/Hematology History: Reports: Hx Thyroid Disease, Hx Anemia - MILDLY IN THE PAST Denies: Hx Anticoagulant Therapy, Hx Diabetes Cardiovascular History: Denies: Hx Congestive Heart Failure, Hx Deep Vein Thrombosis, Hx Hypertension , Hx Myocardial Infarction, Hx Pacemaker/ICD, Other Cardiovascular Problems/ Disorders Respiratory History: Reports: Hx Seasonal Allergies Denies: Hx Asthma, Hx Chronic Obstructive Pulmonary Disease (COPD), Hx Lung Cancer, Hx Pneumonia, Hx Pulmonary Embolism GI History: Reports: Hx Gastroesophageal Reflux Disease - IN THE PAST, Hx Irritable Bowel - POSSIBLE, CHRONIC DIARHEA AND CONSTAPATION, Other GI Disorders - possible gerd Denies: Hx Gall Bladder Disease, Hx Gastrointestinal Bleed, Hx Ulcer, Hx Urosepsis History: Denies: Hx Kidney Stones, Hx Renal Disease, Other Problems/Disorders Musculoskeletal History: Denies: Other Musculoskeletal History Sensory History: Denies: Hx Contacts or Glasses, Hx Hearing Aid Opthamlomology History: Denies: Hx Contacts or Glasses Neurological History: Reports: Hx Developmental Delay, Hx Migraine, Hx Seizures - NEW ONSET- A YR AGO, Other Neuro Impairments/Disorders - SEVERE AUTISM Denies: Hx Dementia, Hx Transient Ischemic Attacks (TIA) Psychiatric History: Reports: Hx Anxiety - ANXIETY WITH AUTISM, Hx Inpatient Treatment, Hx Community Mental Health Tx, Hx Bipolar Disorder, Hx of Violent Episodes Against Others, Other Psychiatric Issues/Disorders - Autism Denies: Hx Eating Disorder, Hx Depression, Hx Panic Disorder, Hx Schizophrenia - Surgical History Surgery Procedure, Year, and Place: WISDOM TEETH EXTRACTIONS Hx Anesthesia Reactions: No - Immunization History Date of Tetanus Vaccine: 09/2006 Infectious Disease History: No Infectious Disease History: Reports: Hx of Known/Suspected MRSA Denies: Hx Clostridium Difficile, Hx Hepatitis, Hx Human Immunodeficiency Virus (HIV), Hx Shingles, Hx Tuberculosis, Hx Known/Suspected VRE, Hx Known/ Suspected VRSA, History Other Infectious Disease, Traveled Outside the [place] in Last 30 Days - Family History Known Family History: Positive: Unknown - due to level 5 caveat - severe autism Negative: Cardiac Disease, Hypertension, Diabetes, Renal Disease, Respiratory Disease, Seizure Disorder, Blood Disorder, Other Family History: staff with family history, pt unable to report hx - Social History Alcohol Use: None Substance Use Type: Reports: None Smoking Status (MU): Never Smoked Tobacco Have You Smoked in the Last Year: No Review of Systems Positive: Fever Eyes: Negative ENT: Negative Positive: Palpitations Respiratory: Negative Gastrointestinal: Negative Genitourinary: Negative Musculoskeletal: Negative Skin: Negative Neurological: Negative Psychological: Normal All Other Systems Reviewed And Are Negative: Yes Physical Exam Triage Information Reviewed: Yes Vital Signs On Initial Exam: Initial Vitals Temp Pulse Resp BP Pulse Ox 100 F 124 18 140/83 97 01/06/18 18:29 01/06/18 18:29 01/06/18 18:29 01/06/18 18:29 01/06/18 18:29 Vital Signs Reviewed: Yes Appearance: Positive: Well-Appearing, No Pain Distress Skin: Positive: Warm, Skin Color Reflects Adequate Perfusion, Dry Head/Face: Positive: Other - Bruise on forehead Eyes: Positive: EOMI, ANTONIO ENT: Positive: Normal ENT inspection Neck: Positive: Supple, Nontender Respiratory/Lung Sounds: Positive: Clear to Auscultation, Breath Sounds Present Cardiovascular: Positive: RRR Abdomen Description: Positive: Nontender, Soft Bowel Sounds: Positive: Present Musculoskeletal: Positive: Normal, Strength/ROM Intact Neurological: Positive: Sensory/Motor Intact, Alert, Oriented to Person Place, Time, Other - Pt is nonverbal. Pt is intermittently cooperative. Psychiatric: Positive: Affect/Mood Appropriate Diagnostics - Vital Signs Vital Signs Temp Pulse Resp BP Pulse Ox 01/06/18 18:29 100 F 124 18 140/83 97 - Laboratory Lab Statement: Any lab studies that have been ordered have been reviewed, and results considered in the medical decision making process. - Radiology CXR Xray Interpretation: Positive (See Comments) - ROUND RIGHT UPPER LOBE INFILTRATE , RECOMMEND FOLLOW-UP CHEST X-RAYS TO RESOLUTION. Radiology Interpretation Completed By: Radiologist - ED PHYSICIAN REVIEWS AND AGREES Course/Dx - Course Course Of Treatment: THE PATIENT DECLINES LAB WORK AND EKG. CXR SHOWED AN INFILTRATE. DISCUSSED WITH ASHA'S MOTHER; GETTING BLOOD WORK OR NOT , TREATING PNEUMONIA OUT PATIENT AND RETURNING IF WORSE. AT THIS TIME WE WILL NOT FORCE THE LAB WORK AND WILL TREAT THE PNEUMONIA WITH DOXYCYCLINE OUT PATIENT. DISCUSSED THAT ASHA SHOULD BE BROUGHT BACK IF HE IS WORSENING. 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 - Diagnoses Provider Diagnoses: Pneumonia, Tachycardia Discharge - Discharge Plan Condition: Stable Disposition: HOME Prescriptions: DOXYcycline CAP(*) [DOXYcycline 100MG CAP(*)] 100 mg PO BID #18 cap Patient Education Materials: Pneumonia (ED) Referrals: Lida Pedersen MD [Primary Care Provider] - Additional Instructions: FOLLOW UP WITH YOUR DOCTOR. RETURN TO THE EMERGENCY DEPARTMENT FOR ANY WORSENING OF RAYMONDS CONDITION; HE BECOMES ILL OR QUESTIONS OR CONCERNS. The documentation as recorded by the Liliam hill Edward accurately reflects the service I personally performed and the decisions made by me, Maico Sawyer MD.
[2018-01-06 22:51] VITALS: BP 111/47
[2018-01-06] MEDS ORDERED: DOXYcycline CAP(*) 100 MG PO ONE ×2 (23:00)
== END 2018-01-06 22:50 | disposition home or self-care (01) ==
LOC: ED 18:27
DX: J18.9 Pneumonia, unspecified organism (principal); R00.0 Tachycardia, unspecified; R00.2 Palpitations
CPT/HCPCS: 71045; 99282; A9270-GY

== ENCOUNTER 2018-01-12 08:14 | Emergency (ER) | payer BC, MEDICAID ==
[2018-01-12 08:26] VITALS: BP 00/00
--- NOTE | 2018-01-12 08:51 | UC ---
Lower Extremity/Ankle HPI - HPI Summary HPI Summary: 1. left foot pain x 1 day, woke up this morning with a limp on his left foot/ ankle no known injury 2. dx with pneumonia 1 week ago on Doxy , cont. to have a cough, no fever, choked on his meds few days ago concern about aspiration - History of Current Complaint Chief Complaint: UCTrauma Stated Complaint: LEFT ANKLE COMPLAINT Time Seen by Provider: 01/12/18 08:20 Hx Obtained From: Family/Static Balancer Hx From Patient Unobtainable Due To: Other - sever MR Onset/Duration: Gradual Onset, Lasting Days - 1, Still Present Severity Initially: Moderate Severity Currently: Moderate Pain Intensity: 0 Aggravating Factor(s): Standing, Ambulation Alleviating Factor(s): Rest Able to Bear Weight: Yes - Allergies/Home Medications Allergies/Adverse Reactions: Allergies Allergy/AdvReac Type Severity Reaction Status Date / Time bee venom protein (honey bee) Allergy Intermediate Unknown Verified 01/12/18 08: 26 Reaction Details clonazepam Allergy profound Verified 01/12/18 08:26 agitation hydroxyzine Allergy Unknown Verified 01/12/18 08:26 Reaction Details lactose Allergy GI Upset Verified 01/12/18 08:26 lorazepam Allergy profound Verified 01/12/18 08:26 agitation PMH/Surg Hx/FS Hx/Imm Hx - Additional Past Medical History Additional PMH: mental retardation, autism, PICA, seizure disorder, OCD, Bipoler, lactose intolerance Neurological History: Seizures Other History Of: Negative For: HIV, Hepatitis B, Hepatitis C, Anticoagulant Therapy - Surgical History Surgical History: Yes Surgery Procedure, Year, and Place: WISDOM TEETH EXTRACTIONS - Family History Known Family History: Positive: Unknown - due to level 5 caveat - severe autism Negative: Cardiac Disease, Hypertension, Diabetes, Renal Disease, Respiratory Disease, Seizure Disorder, Blood Disorder, Other Family History: staff with family history, pt unable to report hx - Social History Alcohol Use: None Substance Use Type: None Smoking Status (MU): Never Smoked Tobacco Have You Smoked in the Last Year: No - Immunization History Most Recent Influenza Vaccination: Unkown Most Recent Tetanus Shot: 09/30/06 Most Recent Pneumonia Vaccination: 05/11/19 Review of Systems Constitutional: Negative Skin: Negative Eyes: Negative ENT: Negative Respiratory: Cough Is Patient Immunocompromised?: No All Other Systems Reviewed And Are Negative: Yes Physical Exam Triage Information Reviewed: Yes Completion Of Physical Exam Limited Due To: Other - non-verbal Appearance: No Pain Distress, Well-Nourished Vital Signs: Initial Vital Signs Temp 0 F 01/12/18 08:17 Pulse 0 01/12/18 08:17 Resp 0 01/12/18 08:17 BP 00/00 01/12/18 08:17 Pulse Ox 0 01/12/18 08:17 Vital Signs Reviewed: Yes Eyes: Positive: Conjunctiva Clear ENT: Positive: Normal ENT inspection, Hearing grossly normal Neck: Positive: Supple, Nontender, No Lymphadenopathy Respiratory: Positive: Chest non-tender, Lungs clear, Normal breath sounds Cardiovascular: Positive: RRR, No Murmur, Pulses Normal Musculoskeletal: Positive: Other: - left ankle : no swelling, no ecchymosis, no erythema, + diffuse tenderness Diagnostics - Laboratory Diagnostic Studies Completed/Ordered: left ankle xray : no fracture. chest xray : stable right upper pneumonia Lower Extremity Course/Dx - Differential Dx/Diagnosis Provider Diagnoses: left ankle pain. pneumonia Discharge - Sign-Out/Discharge Documenting (check all that apply): Discharge - Discharge Plan Condition: Stable Disposition: HOME Patient Education Materials: Ankle Sprain (ED), Pneumonia (ED) Referrals: Lida Pedersen MD [Primary Care Provider] - 7 Days - Billing Disposition and Condition Condition: STABLE Disposition: HOME
--- NOTE | 2018-01-12 09:14 | RAD ---
Indication: Left ankle pain. 3 views of left ankle demonstrates no fracture. No other bone or joint abnormality is noted. IMPRESSION: No fracture of the left ankle is noted.
--- NOTE | 2018-01-12 09:15 | RAD ---
Indication: Cough, evaluate for pneumonia. 2 views of the chest are reviewed. There is right upper lobe airspace disease consistent with right upper lobe pneumonia. Left lung field is clear. No pleural fluid is identified. Compared to previous exam of January 06, 2018 no significant change is noted. IMPRESSION: Findings consistent with right upper lobe pneumonia. Findings are unchanged from January 06, 2018.
== END 2018-01-12 09:27 | disposition home or self-care (01) ==
LOC: UCCORT 08:14
DX: M25.572 Pain in left ankle and joints of left foot (principal); J18.9 Pneumonia, unspecified organism; Z88.8 Allergy status to other drugs, medicaments and biological substances; Z91.011 Allergy to milk products; F79 Unspecified intellectual disabilities; F84.0 Autistic disorder; F50.89 Other specified eating disorder
CPT/HCPCS: 71046; 99211; G0463

== ENCOUNTER 2018-01-14 21:31 | Emergency (ER) | payer OTHER, BC, MEDICAID ==
[2018-01-14 21:49] VITALS: BP 118/70
--- NOTE | 2018-01-15 07:50 | RAD ---
INDICATION: Head trauma, status post seizure. COMPARISON: Comparison is made with a prior CT of the brain from November 02, 2017. TECHNIQUE: Contiguous axial sections of the brain were obtained from the skull base to the vertex without contrast. FINDINGS: The ventricles, cisterns and sulci are within normal limits. No significant focal abnormality or mass effect is seen. There is no evidence for hemorrhage. There is soft tissue swelling and possibly a small hematoma anterior to the frontal bones. No fracture is seen. The visualized portion of the paranasal sinuses and mastoid air cells appear clear. IMPRESSION: NO EVIDENCE FOR ACUTE INTRACRANIAL ABNORMALITY.
--- NOTE | 2018-01-15 17:04 | ED ---
Omid Ledesma Stephanie, scribed for Nitin Hayes MD on 01/14/18 at 2253 . Neurological HPI - HPI Summary HPI Summary: The pt is a 22 y/o M BIBA to the ED with c/o seizure that occurred at 20:15. Per travelers' aid worker, the pt had no antecedent behavior. The seizure lasted less than 1 minute in duration and he was post-ictal for approximately 10 minutes. The seizure was witnessed. Per travelers' aid worker, the pt had seizures 2 months ago s/p the cessation of Depakote per provider. The pt has a hx of seizure disorder. HPI limited due to the pt being non-verbal. - History of Current Complaint Chief Complaint: EDSeizure Stated Complaint: SEIZURES Time Seen by Provider: 01/14/18 22:34 Hx Obtained From: Family/Form Designer Hx From Patient Unobtainable Due To: Other - non-verbal Onset/Duration: Sudden Onset, Started hours ago, Resolved Timing: Intermittent Episodes Lasting: - less than 1 minute Current Severity: None Pain Intensity: 0 Pain Scale Used: 0-10 Numeric Aggravating: Nothing Alleviating: Nothing - Additional Pertinent History Primary Care Physician: MAHENDRA - Allergy/Home Medications Allergies/Adverse Reactions: Allergies Allergy/AdvReac Type Severity Reaction Status Date / Time bee venom protein (honey bee) Allergy Intermediate Unknown Verified 01/14/18 21: 47 Reaction Details clonazepam Allergy profound Verified 01/14/18 21:47 agitation hydroxyzine Allergy Unknown Verified 01/14/18 21:47 Reaction Details lactose Allergy GI Upset Verified 01/14/18 21:47 lorazepam Allergy profound Verified 01/14/18 21:47 agitation PMH/Surg Hx/FS Hx/Imm Hx Endocrine/Hematology History: Reports: Hx Thyroid Disease, Hx Anemia - MILDLY IN THE PAST Denies: Hx Anticoagulant Therapy, Hx Diabetes Cardiovascular History: Denies: Hx Congestive Heart Failure, Hx Deep Vein Thrombosis, Hx Hypertension , Hx Myocardial Infarction, Hx Pacemaker/ICD, Other Cardiovascular Problems/ Disorders Respiratory History: Reports: Hx Seasonal Allergies, Other Respiratory Problems/ Disorders - DX WITH PNEUMONIA Denies: Hx Asthma, Hx Chronic Obstructive Pulmonary Disease (COPD), Hx Lung Cancer, Hx Pneumonia, Hx Pulmonary Embolism GI History: Reports: Hx Gastroesophageal Reflux Disease - IN THE PAST, Hx Irritable Bowel - POSSIBLE, CHRONIC DIARHEA AND CONSTAPATION, Other GI Disorders - possible gerd Denies: Hx Gall Bladder Disease, Hx Gastrointestinal Bleed, Hx Ulcer, Hx Urosepsis History: Denies: Hx Kidney Stones, Hx Renal Disease, Other Problems/Disorders Musculoskeletal History: Denies: Other Musculoskeletal History Sensory History: Denies: Hx Contacts or Glasses, Hx Hearing Aid Opthamlomology History: Denies: Hx Contacts or Glasses Neurological History: Reports: Hx Developmental Delay, Hx Migraine, Hx Seizures - NEW ONSET- A YR AGO, Other Neuro Impairments/Disorders - SEVERE AUTISM Denies: Hx Dementia, Hx Transient Ischemic Attacks (TIA) Psychiatric History: Reports: Hx Anxiety - ANXIETY WITH AUTISM, Hx Inpatient Treatment, Hx Community Mental Health Tx, Hx Bipolar Disorder, Hx of Violent Episodes Against Others, Other Psychiatric Issues/Disorders - Autism Denies: Hx Eating Disorder, Hx Depression, Hx Panic Disorder, Hx Schizophrenia - Surgical History Surgery Procedure, Year, and Place: WISDOM TEETH EXTRACTIONS Hx Anesthesia Reactions: No - Immunization History Date of Tetanus Vaccine: 09/2006 Date of Influenza Vaccine: utd Infectious Disease History: No Infectious Disease History: Reports: Hx of Known/Suspected MRSA Denies: Hx Clostridium Difficile, Hx Hepatitis, Hx Human Immunodeficiency Virus (HIV), Hx Shingles, Hx Tuberculosis, Hx Known/Suspected VRE, Hx Known/ Suspected VRSA, History Other Infectious Disease, Traveled Outside the [place] in Last 30 Days - Family History Known Family History: Positive: Unknown - due to level 5 caveat - severe autism Negative: Cardiac Disease, Hypertension, Diabetes, Renal Disease, Respiratory Disease, Seizure Disorder, Blood Disorder, Other Family History: staff with family history, pt unable to report hx - Social History Occupation: Disabled Lives: Prison - state facility Alcohol Use: None Substance Use Type: Reports: None Smoking Status (MU): Never Smoked Tobacco Have You Smoked in the Last Year: No Review of Systems - ROS Summary Review of Systems Summary: ROS limited due to pt being non-verbal. Negative: Fever All Other Systems Reviewed And Are Negative: No Physical Exam - Summary Physical Exam Summary: Appearance: Well-appearing, no distress, Well-nourished Skin: Warm, color reflects adequate perfusion Head: mild edema and ecchymosis to the L supraorbital ridge Eyes: Conjunctiva clear ENT: Normal inspection, PERRL, EOMI Neck: Supple, no nodes, Respiratory: Lungs clear, Normal breath sounds, no respiratory distress Cardio: RRR, No murmur, pulses normal, brisk capillary refill Abdomen: soft, nontender, no guarding, no rebound Bowel sounds: present Musculoskeletal: Strength Intact/ ROM intact. No calf tenderness. No edema. Neuro: Alert, muscle tone normal, facial symmetry, speech normal per baseline, sensory/motor intact per baseline Psychological: Normal Triage Information Reviewed: Yes Vital Signs On Initial Exam: Initial Vitals Temp Pulse Resp BP Pulse Ox 98.0 F 80 20 118/70 97 01/14/18 21:41 01/14/18 21:41 01/14/18 21:41 01/14/18 21:41 01/14/18 21:41 Vital Signs Reviewed: Yes Diagnostics - Vital Signs Vital Signs Temp Pulse Resp BP Pulse Ox 01/14/18 21:41 98.0 F 80 20 118/70 97 - Laboratory Lab Statement: Any lab studies that have been ordered have been reviewed, and results considered in the medical decision making process. - CT Brain CT Interpretation: No Acute Changes CT Interpretation Completed By: Radiologist - No hemorrhage. No mass. No obvious infarct. No shift or herniation. Osseous structures are intact. Re-Evaluation - Re-Evaluation First Eval Re-Evaluation Time: 00:02 Change: Improved Comment: Pt with no seizure activity in the ED. pt resting comfortably in bed. pt at baseline neurologically. Course/Dx - Course Assessment/Plan: pt with single seizure episode. pt with h/o seizure, however off antieleptics x 2 yrs. Plan for continued monitoring with at [facility] with PCP and Neuro f/u. - Diagnoses Provider Diagnoses: Seizure Discharge - Sign-Out/Discharge Documenting (check all that apply): Discharge - Discharge Plan Condition: Improved Disposition: HOME Patient Education Materials: Recurrent Seizures in Adults (ED) Referrals: Lida Pedersen MD [Primary Care Provider] - 2 Days - Billing Disposition and Condition Condition: IMPROVED Disposition: HOME The documentation as recorded by the Omid hill Stephanie accurately reflects the service I personally performed and the decisions made by me, Nitin Hayes MD.
== END 2018-01-15 00:26 | disposition home or self-care (01) ==
LOC: ED 21:31
DX: R56.9 Unspecified convulsions (principal)
CPT/HCPCS: 70450; 99282

== ENCOUNTER 2018-03-11 21:38 | Emergency (ER) | payer BC, OTHER, MEDICAID ==
[2018-03-11 21:54] VITALS: BP 0/0
--- NOTE | 2018-03-12 04:32 | ED ---
Alberto Ledesma Angela, scribed for Jimbo Chaidez MD on 03/11/18 at 2346 . Throat Pain/Nasal Congestion - HPI Summary HPI Summary: This pt is a 22 y/o male presenting to [facility] c/o right ear bleeding and pain today. Per caretakers, pt's ears were cleaned out today by an RN at a snf. Since then pt's right ear has been bleeding. Caretakers note pt has Tylenol today with no relief. PMHx includes autism. HPI IS LIMITED DUE TO LEVEL 5 CAVEAT - pt has autism. - History of Current Complaint Chief Complaint: EDEarPain Hx Obtained From: Patient, Family/Media Analyst - janitor caretaker Hx From Patient Unobtainable Due To: Other - level 5 caveat - pt has autism Onset/Duration: Still Present Severity: Moderate Associated Signs And Symptoms: Positive: Negative Cough: None Related History: Other (Noted In Comments) - pt had ears cleaned out prior to onset of bleeding - Allergies/Home Medications Allergies/Adverse Reactions: Allergies Allergy/AdvReac Type Severity Reaction Status Date / Time bee venom protein (honey bee) Allergy Intermediate Unknown Verified 03/11/18 21: 54 Reaction Details clonazepam Allergy profound Verified 03/11/18 21:54 agitation hydroxyzine Allergy Unknown Verified 03/11/18 21:54 Reaction Details lactose Allergy GI Upset Verified 03/11/18 21:54 lorazepam Allergy profound Verified 03/11/18 21:54 agitation PMH/Surg Hx/FS Hx/Imm Hx Endocrine/Hematology History: Reports: Hx Thyroid Disease, Hx Anemia - MILDLY IN THE PAST Denies: Hx Anticoagulant Therapy, Hx Diabetes Cardiovascular History: Denies: Hx Congestive Heart Failure, Hx Deep Vein Thrombosis, Hx Hypertension , Hx Myocardial Infarction, Hx Pacemaker/ICD, Other Cardiovascular Problems/ Disorders Respiratory History: Reports: Hx Seasonal Allergies, Other Respiratory Problems/ Disorders - DX WITH PNEUMONIA Denies: Hx Asthma, Hx Chronic Obstructive Pulmonary Disease (COPD), Hx Lung Cancer, Hx Pneumonia, Hx Pulmonary Embolism GI History: Reports: Hx Gastroesophageal Reflux Disease - IN THE PAST, Hx Irritable Bowel - POSSIBLE, CHRONIC DIARHEA AND CONSTAPATION, Other GI Disorders - possible gerd Denies: Hx Gall Bladder Disease, Hx Gastrointestinal Bleed, Hx Ulcer, Hx Urosepsis History: Denies: Hx Kidney Stones, Hx Renal Disease, Other Problems/Disorders Musculoskeletal History: Denies: Other Musculoskeletal History Sensory History: Denies: Hx Contacts or Glasses, Hx Hearing Aid Opthamlomology History: Denies: Hx Contacts or Glasses Neurological History: Reports: Hx Developmental Delay, Hx Migraine, Hx Seizures - NEW ONSET- A YR AGO, Other Neuro Impairments/Disorders - SEVERE AUTISM Denies: Hx Dementia, Hx Transient Ischemic Attacks (TIA) Psychiatric History: Reports: Hx Anxiety - ANXIETY WITH AUTISM, Hx Inpatient Treatment, Hx Community Mental Health Tx, Hx Bipolar Disorder, Hx of Violent Episodes Against Others, Other Psychiatric Issues/Disorders - Autism Denies: Hx Eating Disorder, Hx Depression, Hx Panic Disorder, Hx Schizophrenia - Surgical History Surgery Procedure, Year, and Place: WISDOM TEETH EXTRACTIONS Hx Anesthesia Reactions: No - Immunization History Date of Tetanus Vaccine: 09/2006 Date of Influenza Vaccine: utd Infectious Disease History: No Infectious Disease History: Reports: Hx of Known/Suspected MRSA Denies: Hx Clostridium Difficile, Hx Hepatitis, Hx Human Immunodeficiency Virus (HIV), Hx Shingles, Hx Tuberculosis, Hx Known/Suspected VRE, Hx Known/ Suspected VRSA, History Other Infectious Disease, Traveled Outside the [place] in Last 30 Days - Family History Known Family History: Positive: Unknown - due to level 5 caveat - severe autism Negative: Cardiac Disease, Hypertension, Diabetes, Renal Disease, Respiratory Disease, Seizure Disorder, Blood Disorder, Other Family History: staff with family history, pt unable to report hx - Social History Alcohol Use: None Substance Use Type: Reports: None Smoking Status (MU): Never Smoked Tobacco Have You Smoked in the Last Year: No Review of Systems - ROS Summary Review of Systems Summary: ROS IS LIMITED DUE TO LEVEL 5 CAVEAT - pt has autism Negative: Fever ENT: Other - right ear pain Positive: Ear Ache - right All Other Systems Reviewed And Are Negative: No Physical Exam - Summary Physical Exam Summary: Appearance: Well appearing, no pain distress Skin: warm, dry, reflects adequate perfusion Head/face: normal Eyes: EOMI, ANTONIO ENT: Right ear: dry blood, no pain with manipulation of pinna. Canal is not edematous. There is an area of irritation that looks like it was bleeding. Ear drum is normal. Neck: supple, non-tender Respiratory: CTA, breath sounds present Cardiovascular: RRR, pulses symmetrical Abdomen: non-tender, soft Bowel: present Musculoskeletal: normal, strength/ROM intact Neuro: normal, sensory motor intact, A&Ox3 Triage Information Reviewed: Yes Vital Signs On Initial Exam: Initial Vitals Temp Pulse Resp BP Pulse Ox 98.0 F 62 16 0/0 0 03/11/18 21:45 03/11/18 21:45 03/11/18 21:45 03/11/18 21:45 03/11/18 21:45 Vital Signs Reviewed: Yes Diagnostics - Vital Signs Vital Signs Temp Pulse Resp BP Pulse Ox 03/11/18 21:45 98.0 F 62 16 0/0 0 - Laboratory Lab Statement: Any lab studies that have been ordered have been reviewed, and results considered in the medical decision making process. Re-Evaluation - Re-Evaluation First Eval Re-Evaluation Time: 23:53 Comment: I was able to get some lidocaine in right ear. EENT Course/Dx - Course Course Of Treatment: Patient is nonverbal autistic. He was presented with parent and caregivers with dried blood and discomfort in his right ear. Did attempted to clean his ears. He is very difficult to get to sit still. I was able to examine the ear enough to determine that the tympanic membrane is normal , the canal is without edema and there is a small abrasion with slight bleeding. I will treat this with topical Cortisporin. We did place several drops of lidocaine 1% in the ear with potentially some benefit. Patient looks very comfortable at this point. - Diagnoses Provider Diagnoses: Ear canal abrasion, Autism Discharge - Sign-Out/Discharge Documenting (check all that apply): Discharge/Admit/Transfer - Discharge - Discharge Plan Condition: Improved Disposition: HOME Prescriptions: Neomyc/Polym/HC 1% OTIC SUSP* [Cortisporin Otic Susp 1%*] 4 drop RIGHT EAR TID 5 Days #1 btl Patient Education Materials: Otitis Externa (ED) Referrals: Lida Pedersen MD [Primary Care Provider] - Additional Instructions: Return with increased pain, drainage from the ear, worse or other concerns. Ibuprofen may help. - Billing Disposition and Condition Condition: IMPROVED Disposition: HOME The documentation as recorded by the Alberto hill Angela accurately reflects the service I personally performed and the decisions made by me, Jimbo Chaidez MD.
== END 2018-03-12 00:20 | disposition home or self-care (01) ==
LOC: ED 21:38
DX: S00.411A Abrasion of right ear, initial encounter (principal); F84.0 Autistic disorder; H92.01 Otalgia, right ear; X58.XXXA Exposure to other specified factors, initial encounter; Y92.9 Unspecified place or not applicable
CPT/HCPCS: 99281

== ENCOUNTER 2018-03-14 13:44 | Emergency (ER) | payer BC, OTHER, MEDICAID ==
--- NOTE | 2018-03-14 15:33 | UC ---
General HPI - HPI Summary HPI Summary: tick found on pt today behind his R knee. tick in baggy at bedside and is engorged. no fever. mom notes rash on legs that is not new or bothersome to pt. she had read that his sz medication can cause a severe rash and she wants to ensure this rash is not from the sz medication. - History of Current Complaint Stated Complaint: TICK/SKIN COMPLAINT Time Seen by Provider: 03/14/18 15:25 Hx Obtained From: Family/Compressor Station Engineer Associated Signs & Symptoms: Negative: Fever - Allergy/Home Medications Allergies/Adverse Reactions: Allergies Allergy/AdvReac Type Severity Reaction Status Date / Time bee venom protein (honey bee) Allergy Intermediate Unknown Verified 03/11/18 21: 54 Reaction Details clonazepam Allergy profound Verified 03/11/18 21:54 agitation hydroxyzine Allergy Unknown Verified 03/11/18 21:54 Reaction Details lactose Allergy GI Upset Verified 03/11/18 21:54 lorazepam Allergy profound Verified 03/11/18 21:54 agitation Benzodiazepines AdvReac PAROXISMAL Verified 03/14/18 15:40 REACTION Home Medications: Home Medications Sturgeon Carbonate [Sturgeon Carbonate 300 mg cap] 300 mg PO BID 03/14/18 [ History Confirmed 03/14/18] lamoTRIgine TAB(*) [LaMICtal TAB(*)] 50 mg PO BEDTIME 03/14/18 [History Confirmed 03/14/18] PMH/Surg Hx/FS Hx/Imm Hx - Additional Past Medical History Additional PMH: MR, Autism, PICA, SZ's, OCD, Bipolar Other History Of: Negative For: HIV, Hepatitis B, Hepatitis C, Anticoagulant Therapy - Surgical History Surgical History: Yes Surgery Procedure, Year, and Place: WISDOM TEETH EXTRACTIONS - Family History Known Family History: Positive: Unknown - due to level 5 caveat - severe autism Negative: Cardiac Disease, Hypertension, Diabetes, Renal Disease, Respiratory Disease, Seizure Disorder, Blood Disorder, Other Family History: staff with family history, pt unable to report hx - Social History Occupation: Disabled Lives: Intermediate Alcohol Use: None Substance Use Type: None Smoking Status (MU): Never Smoked Tobacco Have You Smoked in the Last Year: No - Immunization History Most Recent Influenza Vaccination: Unkown Most Recent Tetanus Shot: 09/30/06 Most Recent Pneumonia Vaccination: 05/11/19 Vaccination Up to Date: Yes Review of Systems Constitutional: Other - no fever Skin: Other - rash on legs Respiratory: Other - no cough or sob Gastrointestinal: Other - no v/d Motor: Other - rom intact Musculoskeletal: Other: - no signs of joint pain or edema Neurological: Other - alert per baseline Is Patient Immunocompromised?: No All Other Systems Reviewed And Are Negative: No - Comments Additional Review of Systems Comments: ADDITONAL ROS LIMITED DUE TO PT UNABLE TO PROVIDE. STAFF AND MOM ANSWER APPROPRIATE Physical Exam Triage Information Reviewed: Yes Appearance: Well-Appearing Vital Signs Reviewed: Yes Eyes: Positive: Conjunctiva Clear ENT: Positive: Normal ENT inspection Neck: Positive: Supple, Nontender, No Lymphadenopathy Respiratory: Positive: Lungs clear, Normal breath sounds Cardiovascular: Positive: RRR, No Murmur Abdomen Description: Positive: Nontender, No Organomegaly, Soft Bowel Sounds: Positive: Present Musculoskeletal: Positive: ROM Intact, No Edema Neurological: Positive: Alert Psychological: Positive: Normal Response To Family - PER MOM Skin Exam: Normal, Other - Abrasion behind R knee where tick removed. Mild folliculitis legs but no blistering, no peeling and not petechial. Course/Dx - Course Course Of Treatment: Tick engorged thus tx 200mg doxycycline here. the ongoing rash to legs is a mild folliculitis. staff encouraged to assist pt with batch using gentle soap/water. - Differential Dx - Multi-Symptom Provider Diagnoses: Tick bite Discharge - Sign-Out/Discharge Documenting (check all that apply): Discharge/Admit/Transfer - Discharge Plan Condition: Stable Disposition: HOME Patient Education Materials: Tick Bite (ED) Referrals: Lida Pedersen MD [Primary Care Provider] - If Needed Additional Instructions: treated at urgent care with 200mg of doxycycline - Billing Disposition and Condition Condition: STABLE Disposition: HOME
[2018-03-14 15:35] VITALS: BP 109/58
[2018-03-14] MEDS ORDERED: DOXYcycline CAP(*) 100 MG PO ONE (15:36)
== END 2018-03-14 15:49 | disposition home or self-care (01) ==
LOC: UCCORT 13:44
DX: S80.261A Insect bite (nonvenomous), right knee, initial encounter (principal); Z88.8 Allergy status to other drugs, medicaments and biological substances; Z91.030 Bee allergy status; Z91.011 Allergy to milk products; F31.9 Bipolar disorder, unspecified; R56.9 Unspecified convulsions; W57.XXXA Bitten or stung by nonvenomous insect and other nonvenomous arthropods, initial encounter; Y93.9 Activity, unspecified; Y92.9 Unspecified place or not applicable
CPT/HCPCS: 99212; A9270-GY; G0463

== ENCOUNTER 2018-08-06 20:33 | Emergency (ER) | payer BC, OTHER, MEDICAID ==
--- OUTSIDE RECORDS SUMMARY | 2018-08-06 20:42 | XMS REPORT ---
:1995 External Reference #:[id number] Author Organization [employer] [facility] Address [address] [place] [address] Phone [phone] Care Team Providers Name Role Phone Fady López MD Primary Care Physician Unavailable Payers Type Date Identification Numbers Payment Provider Subscriber Commercial Policy Number: [id number] [employer] PayID: [id number] [address] [address] [place] [address] [facility] Part B Policy Number: [id number] [facility] Minal Cisneros PayID: [id number] [address] [place] [address] [employer] Part B Policy Number: [id number] Medicaid [employer]em [employer] Name: 1 1 [address] PayID: [id number] [place] [address] Problems Date Description Provider Status Onset: 01/22/2018 Adverse effect of antiepileptic and Arias Higuera MD Active sed-hypntc drugs, subs Onset: 01/22/2018 Epilepsy Arias Higuera MD Active Social History Type Date Description Comments ETOH Use Denies alcohol use Smoking Patient has never smoked Allergies, Adverse Reactions, Alerts Date Description Reaction Status Severity Comments 01/22/2018 Bee Sting active 01/22/2018 Benzodiazepines profound aggitation active 01/22/2018 NKDA inactive Medications Medication Date Status Form Strength Qnty SIG Indications Ordering Provider Lamictal 06/10 Active Tablets 200mg 60tab 1 by mouth s twice a MD Kalen day Loratadine Active Tablets 10mg 1 by mouth Unknown every day Mirtazapine Active Tablets 15mg take one Unknown tablet by mouth at bedtime Epinephrine Active Solution 0.3mg/0.3 1 Unknown Auto-Inje ML injection ct as needed allergic reaction [place]son-Gest Antacid Active Chewtabs 500mg 1 tab po Unknown qd Levothyroxine Active Tablets 50mcg 1 by mouth Unknown Sodium every day [place] Active Capsules 300mg 1 by mouth Unknown Carbonate every morning Ensure Enlive Active Liquid drink 1 Unknown shake tid in between meals Triazolam Active Tablets 0.25mg 3 tabs po Unknown / before medical appointmen t [place] Active Tablets 300mg take 1 Unknown Carbonate ER 0000 ER tablet by mouth at bedtime VSL#3 Active Capsules 112.5Bil 1 tab po Unknown / four times a day Quetiapine Active Tablets 200mg 4 tabs a Unknown Fumarate day Doxycycline Active Capsules 100mg one tablet Unknown Hyclate twice daily Hydrocortisone Active Cream 1% apply Unknown twice a day as needed Sertraline HCL Active Tablets 50mg 1 by mouth Unknown / every day Propranolol HCL Active Tablets 60mg 1 by mouth Unknown every day Desonide Active Ointment 0.05% tid as Unknown /0000 needed Chlorpromazine Active Tablets 50mg one tablet Unknown HCL every 8 hours as needed for agitation Chlorhexidine Active Solution 0.12% swish and Unknown Gluconate spit 10 milliliter s twice a day Diphenhydramine Active Tablets 50mg 1 cap po Unknown HCL Maximum 0000 q6hrs as Strength needed Acetaminophen Active Tablets 325mg 2 tablets Unknown by mouth every 4 hours as needed for pain/fever Lactulose Active Solution 10GM/15ML 30 ml's O'rafael, /0000 chuckie Hilton MD Onfi 05/14 Hx Tablets 10mg 16tab two 10/27 s tabs at MD Kalen - bedtime to 07/13 week 5 taper, one 1/2 tab at bedtime for two weeks then stop please split all tabs Lamictal 01/25 Hx Tablets 100mg 90tab take 1 s tablet by MD Kalen - mouth 06/10 morning and take 2 tablets by mouth every night Lamictal 01/25 Hx Tablets 150mg 30tab take one s tablet by MD Kalen - mouth 04/05 daily. Lamictal 01/22 Hx Tablets 25mg 60tab take 2 [facility] s tablets by Adela Maldonado - mouth 06/09 morning ( along with 100mg tablet) Lamotrigine 01/22 Hx Kit 25(21)-50 1kit Starter G40.909 (7)mg kit use as MD Kalen - directed 04/05 Onfi 01/13 Hx Tablets 10mg 45tab 1 tab Nathalia s twice a Cownishant, - day for a M.DLuis 05/14 week 1/2 tabone tab every night at bedtime for 2 wks then 1 tab every night at bedtime for wk th Lamictal 01/13 Hx Tablets 25mg 120ta take 1 bs tablet MD Kalen - daily. . 01/22 Vital Signs Date Vital Result Comment 07/13/2018 Weight 154.00 lb BP Systolic Sitting 110 mmHg BP Diastolic Sitting 60 mmHg 01/22/2018 Weight 151.50 lb BP Systolic 110 mmHg BP Diastolic 64 mmHg Results Test Date Test Result H/L Range Note CBC Auto Diff 06/03/2018 White Blood Count 7.0 10^3/uL 3.5-10.8 Red Blood Count 4.78 10^6/uL 4.00-5.40 Hemoglobin 14.2 g/dL 14.0-18.0 Hematocrit 41 % Low 42-52 Mean Corpuscular Volume 87 fL 80-94 Mean Corpuscular Hemoglobin 30 pg 27-31 Mean Corpuscular HGB Conc 34 g/dL 31-36 Red Cell Distribution Width 13 % 10.5-15 Platelet Count 262 10^3/uL 150-450 Mean Platelet Volume 7.2 um3 Low 7.4-10.4 Abs Neutrophils 4.2 10^3/uL 1.5-7.7 Abs Lymphocytes 2.0 10^3/uL 1.0-4.8 Abs Monocytes 0.7 10^3/uL 0-0.8 Abs Eosinophils 0.2 10^3/uL 0-0.6 Abs Basophils 0 10^3/uL 0-0.2 Abs Nucleated RBC 0 10^3/uL Granulocyte % 59.8 % 38-83 Lymphocyte % 28.1 % 25-47 Monocyte % 9.5 % High 0-7 Eosinophil % 2.2 % 0-6 Basophil % 0.4 % 0-2 Nucleated Red Blood Cells % 0.1 Laboratory test finding 06/03/2018 Ammonia 56 mcmol/L High 16-53 Comp Metabolic Panel 06/03/2018 Sodium 138 mmol/L 135-145 Potassium 4.4 mmol/L 3.5-5.0 Chloride 107 mmol/L 101-111 Co2 Carbon Dioxide 27 mmol/L 22-32 Anion Gap 4 mmol/L 2-11 Glucose 85 mg/dL 70-100 Blood Urea Nitrogen 5 mg/dL Low 6-24 Creatinine 0.55 mg/dL Low 0.67-1.17 One Over Creatinine 1.81 mg/dL High 0.67-1.17 BUN/Creatinine Ratio 9.1 8-20 Calcium 10.4 mg/dL High 8.6-10.3 Total Protein 6.7 g/dL 6.4-8.9 Albumin 4.8 g/dL 3.2-5.2 Globulin 1.9 g/dL Low 2-4 Albumin/Globulin Ratio 2.5 1-3 Total Bilirubin 0.40 mg/dL 0.2-1.0 Alkaline Phosphatase 84 U/L 34-104 Alt 14 U/L 7-52 Ast 12 U/L Low 13-39 Egfr Non- 183.0 >60 Egfr 221.4 >60 1 Laboratory test finding 06/03/2018 [place] 0.90 mmol/L 0.6-1.2 TSH (Thyroid Stim Horm) 1.67 mcIU/mL 0.34-5.60 Lamotrigine (Lamictal) 6.0 g/mL 2.5 - 15.0 2 CBC Auto Diff 05/07/2018 White Blood Count 15.4 10^3/uL High 3.5-10.8 Red Blood Count 4.81 10^6/uL 4.00-5.40 Hemoglobin 14.0 g/dL 14.0-18.0 Hematocrit 41 % Low 42-52 Mean Corpuscular Volume 85 fL 80-94 Mean Corpuscular Hemoglobin 29 pg 27-31 Mean Corpuscular HGB Conc 34 g/dL 31-36 Red Cell Distribution Width 13 % 10.5-15 Platelet Count 269 10^3/uL 150-450 Mean Platelet Volume 7.3 um3 Low 7.4-10.4 Abs Neutrophils 12.3 10^3/uL High 1.5-7.7 Abs Lymphocytes 2.0 10^3/uL 1.0-4.8 Abs Monocytes 0.9 10^3/uL High 0-0.8 Abs Eosinophils 0.1 10^3/uL 0-0.6 Abs Basophils 0 10^3/uL 0-0.2 Abs Nucleated RBC 0 10^3/uL Granulocyte % 80.1 % 38-83 Lymphocyte % 12.7 % Low 25-47 Monocyte % 6.1 % 0-7 Eosinophil % 0.9 % 0-6 Basophil % 0.2 % 0-2 Nucleated Red Blood Cells % 0 Laboratory test finding 05/07/2018 Ammonia 74 mcmol/L High 16-53 3 Comp Metabolic Panel 05/07/2018 Sodium 135 mmol/L 135-145 Potassium 4.2 mmol/L 3.5-5.0 Chloride 104 mmol/L 101-111 Co2 Carbon Dioxide 24 mmol/L 22-32 Anion Gap 7 mmol/L 2-11 Glucose 98 mg/dL 70-100 Blood Urea Nitrogen 9 mg/dL 6-24 Creatinine 0.58 mg/dL Low 0.67-1.17 BUN/Creatinine Ratio 15.5 8-20 Calcium 9.9 mg/dL 8.6-10.3 Total Protein 6.5 g/dL 6.4-8.9 Albumin 4.6 g/dL 3.2-5.2 Globulin 1.9 g/dL Low 2-4 Albumin/Globulin Ratio 2.4 1-3 Total Bilirubin 0.70 mg/dL 0.2-1.0 Alkaline Phosphatase 69 U/L 34-104 Alt 13 U/L 7-52 Ast 15 U/L 13-39 Egfr Non- 172.1 >60 Egfr 208.3 >60 4 Laboratory test finding 05/07/2018 Phosphorus 4.0 mg/dL 2.5-5.0 5 Magnesium 2.1 mg/dL 1.9-2.7 6 [place] 1.16 mmol/L 0.6-1.2 7 TSH (Thyroid Stim Horm) 2.20 mcIU/mL 0.34-5.60 8 Lamotrigine (Lamictal) 5.8 g/mL 2.5 - 15.0 9 Laboratory test finding 04/01/2018 [place] 1.02 mmol/L 0.6-1.2 10, 11 Valproic Acid (Depakene) < 13.0 g/mL Low 50-100 10, 12 TSH (Thyroid Stim Horm) 0.96 mcIU/mL 0.34-5.60 10, 13 Free T4 (Free Thyroxine) 0.83 ng/dL 0.61-1.12 10, 14 Lamotrigine (Lamictal) 3.0 g/mL 2.5 - 15.0 10, 15 Comp Metabolic Panel 04/01/2018 Sodium 138 mmol/L Low 139-145 10 Potassium 4.2 mmol/L 3.5-5.0 10 Chloride 105 mmol/L 101-111 10 Co2 Carbon Dioxide 27 mmol/L 22-32 10 Anion Gap 6 mmol/L 2-11 10 Glucose 101 mg/dL High 70-100 10 Blood Urea Nitrogen 4 mg/dL Low 6-24 10 Creatinine 0.56 mg/dL Low 0.67-1.17 10 BUN/Creatinine Ratio 7.1 Low 8-20 10 Calcium 9.7 mg/dL 8.6-10.3 10 Total Protein 6.5 g/dL 6.4-8.9 10 Albumin 4.6 g/dL 3.2-5.2 10 Globulin 1.9 g/dL Low 2-4 10 Albumin/Globulin Ratio 2.4 1-3 10 Total Bilirubin 0.40 mg/dL 0.2-1.0 10 Alkaline Phosphatase 76 U/L 34-104 10 Alt 16 U/L 7-52 10 Ast 13 U/L 13-39 10 Egfr Non- 180.8 >60 10 Egfr 232.5 >60 10, 16 Urinalysis Profile 04/01/2018 Urine Color Yellow 10 Urine Appearance Clear 10 Urine Specific [place] 1.009 Low 1.010-1.030 10 Urine pH 7.0 5-9 10 Urine Urobilinogen Negative Negative 10 Urine Ketones Negative Negative 10 Urine Protein Negative Negative 10 Urine Leukocytes Negative Negative 10 Urine Blood Negative Negative 10 * * Negative 10, 17 Urine Nitrite Negative Negative 10 Urine Bilirubin Negative Negative 10 Urine Glucose Negative Negative 10 Laboratory test finding 04/01/2018 Ammonia 75 mcmol/L High 16-53 10, 18 CBC Auto Diff 04/01/2018 White Blood Count 7.6 10^3/uL 3.5-10.8 10 Red Blood Count 4.91 10^6/uL 4.0-5.4 10 Hemoglobin 14.3 g/dL 14.0-18.0 10 Hematocrit 42 % 42-52 10 Mean Corpuscular Volume 86 fL 80-94 10 Mean Corpuscular Hemoglobin 29 pg 27-31 10 Mean Corpuscular HGB Conc 34 g/dL 31-36 10 Red Cell Distribution Width 14 % 10.5-15 10 Platelet Count 290 10^3/uL 150-450 10 Mean Platelet Volume 8.1 um3 7.4-10.4 10 Abs Neutrophils 4.7 10^3/uL 1.5-7.7 10 Abs Lymphocytes 2.2 10^3/uL 1.0-4.8 10 Abs Monocytes 0.5 10^3/uL 0-0.8 10 Abs Eosinophils 0.2 10^3/uL 0-0.6 10 Abs Basophils 0.1 10^3/uL 0-0.2 10 Abs Nucleated RBC 0 10^3/uL 10 Granulocyte % 61.6 % 38-83 10 Lymphocyte % 28.7 % 25-47 10 Monocyte % 6.6 % 0-7 10 Eosinophil % 2.4 % 0-6 10 Basophil % 0.7 % 0-2 10 Nucleated Red Blood Cells % 0.1 10 CBC Auto Diff 02/18/2018 White Blood Count 8.8 10^3/uL 3.5-10.8 Red Blood Count 4.15 10^6/uL 4.0-5.4 Hemoglobin 12.3 g/dL Low 14.0-18.0 Hematocrit 36 % Low 42-52 Mean Corpuscular Volume 86 fL 80-94 Mean Corpuscular Hemoglobin 30 pg 27-31 Mean Corpuscular HGB Conc 35 g/dL 31-36 Red Cell Distribution Width 14 % 10.5-15 Platelet Count 250 10^3/uL 150-450 Mean Platelet Volume 7.9 um3 7.4-10.4 Abs Neutrophils 4.5 10^3/uL 1.5-7.7 Abs Lymphocytes 3.4 10^3/uL 1.0-4.8 Abs Monocytes 0.7 10^3/uL 0-0.8 Abs Eosinophils 0.2 10^3/uL 0-0.6 Abs Basophils 0 10^3/uL 0-0.2 Abs Nucleated RBC 0 10^3/uL Granulocyte % 50.5 % 38-83 Lymphocyte % 38.9 % 25-47 Monocyte % 7.7 % High 0-7 Eosinophil % 2.4 % 0-6 Basophil % 0.5 % 0-2 Nucleated Red Blood Cells % 0 Laboratory test finding 02/18/2018 Ammonia 53 mcmol/L 16-53 Comp Metabolic Panel 02/18/2018 Sodium 140 mmol/L 139-145 Potassium 3.7 mmol/L 3.5-5.0 Chloride 111 mmol/L 101-111 Co2 Carbon Dioxide 24 mmol/L 22-32 Anion Gap 5 mmol/L 2-11 Glucose 104 mg/dL High 70-100 Blood Urea Nitrogen 6 mg/dL 6-24 Creatinine 0.58 mg/dL Low 0.67-1.17 BUN/Creatinine Ratio 10.3 8-20 Calcium 9.1 mg/dL 8.6-10.3 Total Protein 5.6 g/dL Low 6.4-8.9 Albumin 4.0 g/dL 3.2-5.2 Globulin 1.6 g/dL Low 2-4 Albumin/Globulin Ratio 2.5 1-3 Total Bilirubin 0.40 mg/dL 0.2-1.0 Alkaline Phosphatase 73 U/L 34-104 Alt 14 U/L 7-52 Ast 14 U/L 13-39 Egfr Non- 173.6 >60 Egfr 223.3 >60 19 Laboratory test finding 02/18/2018 Phosphorus 3.8 mg/dL 2.5-5.0 Magnesium 2.0 mg/dL 1.9-2.7 [place] 0.85 mmol/L 0.6-1.2 TSH (Thyroid Stim Horm) 1.81 mcIU/mL 0.34-5.60 Free T4 (Free Thyroxine) 0.89 ng/dL 0.61-1.12 T3 Total 0.81 ng/mL Low 0.87-1.78 Thyroxine 5.19 g/mL Low 6.09-12.23 Lamotrigine (Lamictal) 1.8 g/mL 2.5 - 15.0 20 1 Because ethnic data is not always readily available, this report includes an eGFR for both -Americans and non- Americans. The National Kidney Disease Education Program (NKDEP) does not endorse the use of the MDRD equation for patients that are not between the ages of 18 and 70, are , have extremes of body size, muscle mass, or nutritional status, or are non- or non-. According to the National Kidney Foundation, irrespective of diagnosis, the stage of the disease is based on the level of kidney function: Stage Description GFR(mL/min/1.73 m(2)) 1 Kidney damage with normal or decreased GFR 90 2 Kidney damage with mild decrease in GFR 60-89 3 Moderate decrease in GFR 30-59 4 Severe decrease in GFR 15-29 5 Kidney failure <15 (or dialysis) 2 ADDITIONAL INFORMATION This test was developed and its performance characteristics determined by [facility] in a manner consistent with CLIA requirements. This test has not been cleared or approved by the U.S. Food and Drug Administration. Test Performed by: [address] [address] 3 STAT FAX COPIES OF RESULTS TO DR FADY LÓPEZ ([id number] DR EDGAR ()[id number] THI LOFTONTrent CALDWELL ()[id number] 4 Because ethnic data is not always readily available, this report includes an eGFR for both -Americans and non- Americans. The National Kidney Disease Education Program (NKDEP) does not endorse the use of the MDRD equation for patients that are not between the ages of 18 and 70, are , have extremes of body size, muscle mass, or nutritional status, or are non- or non-. According to the National Kidney Foundation, irrespective of diagnosis, the stage of the disease is based on the level of kidney function: Stage Description GFR(mL/min/1.73 m(2)) 1 Kidney damage with normal or decreased GFR 90 2 Kidney damage with mild decrease in GFR 60-89 3 Moderate decrease in GFR 30-59 4 Severe decrease in GFR 15-29 5 Kidney failure <15 (or dialysis) 5 STAT FAX COPIES OF RESULTS TO DR FADY LÓPEZ ()[id number] DR EDGAR ()[id number] [facility] KALI CALDWELL ()[id number] STAT FAX COPIES OF RESULTS TO DR FADY LÓPEZ ()[id number] DR EDGAR ()[id number] [facility] KALI CALDWELL ()[id number] 7 STAT FAX COPIES OF RESULTS TO DR FADY LÓPEZ ()[id number] DR EDGAR ()[id number] RN [facility] KALI CALDWELL ()[id number] 8 STAT FAX COPIES OF RESULTS TO DR FADY LÓPEZ ()[id number] DR EDGAR ()[id number] [facility] KALI CALDWELL ()[id number] 9 ADDITIONAL INFORMATION This test was developed and its performance characteristics determined by [facility] in a manner consistent with CLIA requirements. This test has not been cleared or approved by the U.S. Food and Drug Administration. Test Performed by: [place] [address] 10 FAX RESULTS TO KALI ABRAHAM RN AT [id number] [phone] FAX RESULTS TO KALICallie ABRAHAM RN AT [id number] 12 FAX RESULTS TO KALI LEIGH RN AT [id number] 13 FAX RESULTS TO KALI LEIGH RN AT [id number] 14 FAX RESULTS TO KALI LEIGH RN AT [id number] 15 ADDITIONAL INFORMATION This test was developed and its performance characteristics determined by [facility] in a manner consistent with CLIA requirements. This test has not been cleared or approved by the U.S. Food and Drug Administration. Test Performed by: [facility] - [place] [address], [place] [address] 16 Because ethnic data is not always readily available, this report includes an eGFR for both -Americans and non- Americans. The National Kidney Disease Education Program (NKDEP) does not endorse the use of the MDRD equation for patients that are not between the ages of 18 and 70, are , have extremes of body size, muscle mass, or nutritional status, or are non- or non-. According to the National Kidney Foundation, irrespective of diagnosis, the stage of the disease is based on the level of kidney function: Stage Description GFR(mL/min/1.73 m(2)) 1 Kidney damage with normal or decreased GFR 90 2 Kidney damage with mild decrease in GFR 60-89 3 Moderate decrease in GFR 30-59 4 Severe decrease in GFR 15-29 5 Kidney failure <15 (or dialysis) 17 *Ascorbic acid is present which may interfere with detection of blood. 18 FAX RESULTS TO KALI ABRAHAM RN AT [id number] 19 Because ethnic data is not always readily available, this report includes an eGFR for both -Americans and non- Americans. The National Kidney Disease Education Program (NKDEP) does not endorse the use of the MDRD equation for patients that are not between the ages of 18 and 70, are , have extremes of body size, muscle mass, or nutritional status, or are non- or non-. According to the National Kidney Foundation, irrespective of diagnosis, the stage of the disease is based on the level of kidney function: Stage Description GFR(mL/min/1.73 m(2)) 1 Kidney damage with normal or decreased GFR 90 2 Kidney damage with mild decrease in GFR 60-89 3 Moderate decrease in GFR 30-59 4 Severe decrease in GFR 15-29 5 Kidney failure <15 (or dialysis) 20 ADDITIONAL INFORMATION This test was developed and its performance characteristics determined by [facility] in a manner consistent with CLIA requirements. This test has not been cleared or approved by the U.S. Food and Drug Administration. Test Performed by: [facility] - [address] [address] Procedures Description No Information Encounters Type Date Location Provider CPT E/M Dx Office Visit 04/30/2018 [facility] [address] G40.909 11:30a Office Visit 01/22/2018 [facility] [address] G40.909 11:15a T42.6x5D Office Visit 12/12/2017 10:28a [facility] Arias Higuera, 1970[address] G40.909 E87.1 E72.20 T42.6x5D [facility] [address] [facility].0 [facility] 308.2 Plan of Care Future Appointment(s):01/10/2019 9:15 am - Arias Higuera MD at [facility]007/13/2018 - Arias Higuera MDG40.909 Epilepsy, unsp, not intractable, without status epilepticusComments:Seizures quiet on lamictal off depakote and onfi and has behavioral improvement. Agree with workup with mitochondrial specialist. Continue lamictal as isT42.6x5D Adverse effect of antiepileptic and sed-hypntc drugs, subs
[2018-08-06] MEDS ORDERED: Midazolam* 1 MG/ML 2 ML VIAL (2 MG) IM ONE (21:18)
--- NOTE | 2018-08-06 21:20 | ED ---
Neurological HPI - HPI Summary HPI Summary: Pt is a 23 y/o male BIBA who presents to the ED s/p seizure. He lives at [facility], and the staff witnessed him fall to the ground and have a seizure for about 40 seconds. Pt has a history of seizures, but hasnt had one since October 2017. He recently had his medications changed, so he now takes Lamictal 1200 mg BID since May 2018. Pt sees Dr. Higuera. He is non-verbal. 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 Neurological Deficit Location: Generalized Pain Intensity: 0 Pain Scale Used: 0-10 Numeric Alleviating: Spontanious Resolution Related Hx: Seizure - Additional Pertinent History Primary Care Physician: MAHENDRA - Allergy/Home Medications Allergies/Adverse Reactions: Allergies Allergy/AdvReac Type Severity Reaction Status Date / Time bee venom protein (honey bee) Allergy Intermediate Unknown Verified 03/11/18 21: 54 Reaction Details clonazepam Allergy profound Verified 03/11/18 21:54 agitation hydroxyzine Allergy Unknown Verified 03/11/18 21:54 Reaction Details lactose Allergy GI Upset Verified 03/11/18 21:54 lorazepam Allergy profound Verified 03/11/18 21:54 agitation Benzodiazepines AdvReac PAROXISMAL Verified 03/14/18 15:40 REACTION PMH/Surg Hx/FS Hx/Imm Hx Endocrine/Hematology History: Reports: Hx Thyroid Disease, Hx Anemia - MILDLY IN THE PAST Denies: Hx Anticoagulant Therapy, Hx Diabetes Cardiovascular History: Denies: Hx Congestive Heart Failure, Hx Deep Vein Thrombosis, Hx Hypertension , Hx Myocardial Infarction, Hx Pacemaker/ICD, Other Cardiovascular Problems/ Disorders Respiratory History: Reports: Hx Seasonal Allergies, Other Respiratory Problems/ Disorders - DX WITH PNEUMONIA Denies: Hx Asthma, Hx Chronic Obstructive Pulmonary Disease (COPD), Hx Lung Cancer, Hx Pneumonia, Hx Pulmonary Embolism GI History: Reports: Hx Gastroesophageal Reflux Disease - IN THE PAST, Hx Irritable Bowel - POSSIBLE, CHRONIC DIARHEA AND CONSTAPATION, Other GI Disorders - possible gerd Denies: Hx Gall Bladder Disease, Hx Gastrointestinal Bleed, Hx Ulcer, Hx Urosepsis History: Denies: Hx Kidney Stones, Hx Renal Disease, Other Problems/Disorders Musculoskeletal History: Denies: Other Musculoskeletal History Sensory History: Denies: Hx Contacts or Glasses, Hx Hearing Aid Opthamlomology History: Denies: Hx Contacts or Glasses Neurological History: Reports: Hx Developmental Delay, Hx Migraine, Hx Seizures - NEW ONSET- A YR AGO, Other Neuro Impairments/Disorders - SEVERE AUTISM Denies: Hx Dementia, Hx Transient Ischemic Attacks (TIA) Psychiatric History: Reports: Hx Anxiety - ANXIETY WITH AUTISM, Hx Inpatient Treatment, Hx Community Mental Health Tx, Hx Bipolar Disorder, Hx of Violent Episodes Against Others, Other Psychiatric Issues/Disorders - Autism Denies: Hx Eating Disorder, Hx Depression, Hx Panic Disorder, Hx Schizophrenia - Surgical History Surgery Procedure, Year, and Place: WISDOM TEETH EXTRACTIONS Hx Anesthesia Reactions: No - Immunization History Date of Tetanus Vaccine: 09/2006 Date of Influenza Vaccine: utd Infectious Disease History: No Infectious Disease History: Reports: Hx of Known/Suspected MRSA Denies: Hx Clostridium Difficile, Hx Hepatitis, Hx Human Immunodeficiency Virus (HIV), Hx Shingles, Hx Tuberculosis, Hx Known/Suspected VRE, Hx Known/ Suspected VRSA, History Other Infectious Disease, Traveled Outside the [place] in Last 30 Days - Family History Known Family History: Negative: Cardiac Disease, Hypertension, Diabetes, Renal Disease, Respiratory Disease, Seizure Disorder, Blood Disorder, Other - Social History Alcohol Use: None Hx Substance Use: No Substance Use Type: Reports: None Hx Tobacco Use: No Smoking Status (MU): Never Smoked Tobacco Have You Smoked in the Last Year: No Review of Systems Negative: Fever Neurological: Other - Seizure All Other Systems Reviewed And Are Negative: Yes Physical Exam - Summary Physical Exam Summary: VITAL SIGNS: Reviewed. GENERAL: Patient is a small for his age and nourished MALE who is lying comfortable in the stretcher. Patient is not in any acute respiratory distress. HEAD AND FACE: No signs of trauma. No ecchymosis, hematomas or skull depressions. No sinus tenderness. EYES: PERRLA, EOMI x 2, No injected conjunctiva, no nystagmus. EARS: Hearing grossly intact. Ear canals and tympanic membranes are within normal limits. MOUTH: Oropharynx within normal limits. NECK: Supple, trachea is midline, no adenopathy, no JVD, no carotid bruit, no c- spine tenderness, neck with full ROM. CHEST: Symmetric, no tenderness at palpation LUNGS: Clear to auscultation bilaterally. No wheezing or crackles. CVS: Regular rate and rhythm, S1 and S2 present, no murmurs or gallops appreciated. ABDOMEN: Soft, non-tender. No signs of distention. No rebound no guarding, and no masses palpated. Bowel sounds are normal. EXTREMITIES: FROM in all major joints, no edema, no cyanosis or clubbing. NEURO: Alert and oriented x 3. No acute neurological deficits. Speech is normal and follows commands. Non-verbal, just making noises. SKIN: Dry and warm Triage Information Reviewed: Yes Vital Signs On Initial Exam: Initial Vitals Temp Pulse Resp BP Pulse Ox 98.5 F 90 20 123/76 98 08/06/18 20:39 08/06/18 20:39 08/06/18 20:39 08/06/18 20:39 08/06/18 20:39 Vital Signs Reviewed: Yes Diagnostics - Vital Signs Vital Signs Temp Pulse Resp BP Pulse Ox 08/06/18 20:39 98.5 F 90 20 123/76 98 - Laboratory Result Diagrams: 08/06/18 22:29 08/06/18 22:29 Lab Statement: Any lab studies that have been ordered have been reviewed, and results considered in the medical decision making process. Course/Dx - Course Course Of Treatment: Pt is a 23 y/o male BIBA who presents to the ED s/p seizure. He lives at [facility], and the staff witnessed him fall to the ground and have a seizure for about 40 seconds. Pt has a history of seizures , but hasnt had one since October 2017. He recently had his medications changed , so he now takes Lamictal 1200 mg BID since May 2018. Pt sees Dr. Higuera. He is non-verbal. Spoke to Dr. Maldonado, who said since it is only one breakthrough seizure, pt can be discharged and is to follow up with neurology in 3 days. Final dx is seizure. Patient did not have any seizure in the ED. Labs within normal level except for low TSH. Pt takes 50 mg Synthroid. He does not have any other signs of hyperthyroidism. Spoke with marine engineer, that the patient needs to F/U with PCP regarding thyroid function test and possible adjustment of Synthroid dose. Lamictal level is pending. Pt is discharged home. - Diagnoses Provider Diagnoses: Seizure - Physician Notifications Discussed Care Of Patient With: Daniel Maldonado Time Discussed With Above Provider: 22:51 Instructed by Provider To: Other - Since it is only one breakthrough seizure, pt can be discharged and is to follow up with neurology in 3 days. Discharge - Sign-Out/Discharge Documenting (check all that apply): Patient Departure - Discharge - Discharge Plan Condition: Stable Disposition: HOME Patient Education Materials: Epilepsy (ED) Referrals: Lida Pedersen MD [Primary Care Provider] - Arias Higuera MD [Medical Doctor] - 3 Days Additional Instructions: RETURN TO THE EMERGENCY DEPARTMENT FOR CHANGING OR WORSENING SYMPTOMS. FOLLOW UP WITH PCP IN 1-2 DAYS. - Attestation Statements Document Initiated by Scribe: Yes Documenting Scribe: Carli Petty Provider For Whom Scribe is Documenting (Include Credential): Perry Sanchez MD Scribe Attestation: Carli Ledesma, scribed for Perry Sanchez MD on 08/06/18 at 2346.
[2018-08-06] MEDS ORDERED: fentaNYL* 50 MCG/ML 2 ML VIAL (100 MCG VIAL) ONE (21:23)
[2018-08-06 21:44] LABS: Urine Appearance Clear; Urine Blood Negative (Negative); Urine Color Colorless; Urine Ketones Negative (Negative); Urine Protein Negative (Negative); Urine Specific Gravity 1.004 (1.010-1.030); Urine Urobilinogen Negative (Negative)
[2018-08-06] MEDS ORDERED: Midazolam concentrated* 5 MG/ML 1 ml VIAL INJ ONE (21:45)
[2018-08-06 22:50] LABS: ABS Basophils 0 10^3/ul (0-0.2); ABS Eosinophils 0.2 10^3/ul (0-0.6); ABS Lymphocytes 2.3 10^3/ul (1.0-4.8); ABS Monocytes 0.7 10^3/ul (0-0.8); ABS Neutrophils 6.6 10^3/ul (1.5-7.7); ABS Nucleated RBC 0 10^3/ul; Eosinophil % 1.8 % (0-6); Hematocrit 36 % (42-52); Hemoglobin 12.7 g/dl (14.0-18.0); Lymphocyte % 23.4 % (25-47); Mean Corpuscular HGB Conc 35 g/dl (31-36); Mean Corpuscular Hemoglobin 30 pg (27-31); Mean Corpuscular Volume 85 fL (80-94); Mean Platelet Volume 7.3 um3 (7.4-10.4); Nucleated Red Blood Cells % 0.1; Platelet Count 277 10^3/ul (150-450); Red Cell Distribution Width 12 % (10.5-15); White Blood Count 9.8 10^3/ul (3.5-10.8)
[2018-08-06] MEDS ORDERED: lamoTRIgine TAB(*) 100 MG PO ONE (22:50)
[2018-08-06 22:51] VITALS: BP 104/62
[2018-08-06 23:05] LABS: EGFR Non-African American 150.9 (>60)
[2018-08-06 23:20] LABS: Lithium 0.87 mmol/L (0.6-1.2)
== END 2018-08-07 00:04 | disposition home or self-care (01) ==
LOC: ED 20:33
DX: G40.909 Epilepsy, unspecified, not intractable, without status epilepticus (principal)
CPT/HCPCS: 36415; 80053; 80175; 80178; 81003; 83735; 84443; 85025; 96372; 96374; 99283; A9270-GY; J2250; J3010

== ENCOUNTER 2018-10-05 11:03 | Emergency (ER) | payer BC, MEDICAID ==
--- NOTE | 2018-10-05 13:43 | UC ---
Hand/Wrist HPI - HPI Summary HPI Summary: bruising of the right 3th knuckle x 4 weeks pt. is non-verbal , hx of profound MR , no injury reported by the janitor caretaker , no swelling, no visible pain - History Of Current Complaint Chief Complaint: UCUpperExtremity Stated Complaint: RIGHT MIDDLE FINGER INJURY Time Seen by Provider: 10/05/18 13:37 Hx Obtained From: Family/Sprinkler Repair Technician Hx From Patient Unobtainable Due To: Other - profound MR Onset/Duration: Gradual Onset, Lasting Weeks - 4, Still Present Severity Initially: Mild Severity Currently: Mild Pain Intensity: 0 Pain Scale Used: none Aggravating Factor(s): Other - possible self inflicted injury Alleviating Factor(s): Nothing Associated Signs And Symptoms: Positive: Bruising - Allergies/Home Medications Allergies/Adverse Reactions: Allergies Allergy/AdvReac Type Severity Reaction Status Date / Time bee venom protein (honey bee) Allergy Intermediate Unknown Verified 10/05/18 13: 18 Reaction Details clonazepam Allergy profound Verified 10/05/18 13:18 agitation hydroxyzine Allergy Unknown Verified 10/05/18 13:18 Reaction Details lactose Allergy GI Upset Verified 10/05/18 13:18 lorazepam Allergy profound Verified 10/05/18 13:18 agitation Benzodiazepines AdvReac PAROXISMAL Verified 10/05/18 13:18 REACTION PMH/Surg Hx/FS Hx/Imm Hx - Additional Past Medical History Additional PMH: MR, Seizure disorder Endocrine History: Thyroid Disease Neurological History: Seizures Other History Of: Negative For: HIV, Hepatitis B, Hepatitis C, Anticoagulant Therapy - Surgical History Surgical History: Yes Surgery Procedure, Year, and Place: WISDOM TEETH EXTRACTIONS - Family History Known Family History: Negative: Cardiac Disease, Hypertension, Diabetes, Renal Disease, Respiratory Disease, Seizure Disorder, Blood Disorder, Other - Social History Alcohol Use: None Substance Use Type: None Smoking Status (MU): Never Smoked Tobacco Have You Smoked in the Last Year: No - Immunization History Most Recent Influenza Vaccination: Unkown Most Recent Tetanus Shot: 09/30/06 Most Recent Pneumonia Vaccination: 05/11/19 Vaccination Up to Date: Yes Review of Systems All Other Systems Reviewed And Are Negative: Yes Constitutional: Positive: Negative Skin: Positive: Bruising Eyes: Positive: Negative ENT: Positive: Negative Respiratory: Positive: Negative Cardiovascular: Positive: Negative Is Patient Immunocompromised?: No Physical Exam Triage Information Reviewed: Yes Completion Of Physical Exam Limited Due To: Other - profound MR Vital Signs: Initial Vital Signs Temp 98.7 F 10/05/18 13:24 Pulse 88 10/05/18 13:24 Resp 20 10/05/18 13:24 Pulse Ox 99 10/05/18 13:24 Vital Signs Reviewed: Yes Eye Exam: Normal Eyes: Positive: Conjunctiva Clear ENT: Positive: Normal ENT inspection Neck exam: Normal Neck: Positive: Supple Respiratory: Positive: Chest non-tender, Lungs clear, Normal breath sounds Cardiovascular: Positive: RRR, No Murmur, Pulses Normal Skin: Positive: Other - ecchymotic area- brown in color on R 3rd finger knuckle. not tender to touch , no swelling, good ROM Hand/Wrist Course/Dx - Course Course Of Treatment: most likely chronic, due to self inflicted injuries - Differential Dx/Diagnosis Provider Diagnosis: Traumatic ecchymosis of hand Discharge - Sign-Out/Discharge Documenting (check all that apply): Patient Departure All imaging exams completed and their final reports reviewed: No Studies - Discharge Plan Condition: Stable Disposition: HOME Patient Education Materials: Contusion in Adults (ED) Referrals: Lida Pedersen MD [Primary Care Provider] - If Needed - Billing Disposition and Condition Condition: STABLE Disposition: Home
== END 2018-10-05 13:51 | disposition home or self-care (01) ==
LOC: UCCORT 11:03
DX: S60.031A Contusion of right middle finger without damage to nail, initial encounter (principal); X58.XXXA Exposure to other specified factors, initial encounter; Y92.9 Unspecified place or not applicable; F73 Profound intellectual disabilities; F80.9 Developmental disorder of speech and language, unspecified; Z88.8 Allergy status to other drugs, medicaments and biological substances
CPT/HCPCS: 99212; G0463

== ENCOUNTER 2019-01-14 09:40 | Emergency (ER) | payer BC, MEDICAID ==
--- OUTSIDE RECORDS SUMMARY | 2019-01-14 10:01 | XMS REPORT | Continuity of Care Document ---
:1995 External Reference #:[id number] Author Name Hakeem Spears MD Address [address] [place] [address] Care Team Providers Name Role Phone Lida Robins DR. Care Team Information Label Coder Unavailable Lida Robins DR. Primary Care Physician Unavailable Payers Date Identification Numbers Payment Provider Subscriber Policy Number: [id number] [facility] Alton Renteria PayID: [id number] [address] [address] [place] [address] Policy Number: [id number] [facility] Minal Cisneros PayID: [id number] [address] [place] [address] Policy Number: [id number] Medicaid/I Hakeem Esparza Group Name: 1 2 Insurance Primary PayID: [id number] [address] [place] [address] Advance Directives Description No Information Available Problems Date Description Provider Status Onset: 11/12/2017 Closed fracture of nasal bones Avi Frey MD Active Onset: 03/11/2018 Impacted cerumen Avi Frey MD Active Onset: 03/11/2018 OtalAvi Rosas MD Active Family History Date Family Member(s) Observation Comments General Cancer General Diabetes General Heart Disease Social History Type Date Description Comments Sex Unknown Occupation Disabled Tobacco Use Start: Unknown Never Smoked Cigarettes Tobacco Use Start: Unknown Never Smoked Cigars Tobacco Use Start: Unknown Never Smoked A Pipe Smokeless Tobacco Never Used Smokeless Tobacco ETOH Use Denies alcohol use Allergies, Adverse Reactions, Alerts Date Description Reaction Status Severity Comments 11/12/2017 Benzodiazepines Active 12/22/2018 Vistaril Active 12/22/2018 Hydroxyzine Active 12/22/2018 Honey Bee Venom Active Medications Medication Date Status Form Strength Qnty SIG Indications Ordering Provider Acetaminophen 00/00/ Active Tablets 325mg take as Unknown 0000 directed Loratadine / Active Capsules 10mg 1 a day Unknown 0000 Levothyroxine / Active Tablets 50mcg 1 by Unknown Sodium 0000 mouth every day Divalproex / Active Tablets DR 500mg 1 by Unknown Sodium 0000 mouth every day Coamo / Active Capsules 600mg Unknown Carbonate 0000 Epinephrine / Active Solution 0.3mg/0.3 inject as Unknown 0000 Auto-Inject ML needed for allergic reaction Sertraline HCL / Active Tablets 50mg once Unknown 0000 daily Triazolam / Active Tablets 0.25mg Unknown 0000 Quetiapine / Active Tablets 200mg Unknown Fumarate 0000 Mirtazapine / Active Tablets 15mg as Unknown 0000 directed VSL#3 / Active Capsules 112.5Bil Unknown 0000 Chlorhexidine / Active Solution 0.12% Unknown Gluconate 0000 Lactulose / Active Solution 10GM/15ML Oshae, Lida VARGAS Lamotrigine / Active Tablets 200mg Kalen, Arias HERNANDEZ Coamo / Active Capsules 300mg Duplan, Carbonate Juan HERNANDEZ Chlorpromazine / Active Tablets 100mg Duplan, HCL Juan HERNANDEZ Onfi / Active Tablets 10mg Kalen, Arias HERNANDEZ Desonide / Active Ointment 0.05% Kevinhae, Lida VARGAS Lamotrigine / Active Tablets 100mg Kalen, Arias HERNANDEZ Lamotrigine / Active Tablets 25mg Kalen, Arias HERNANDEZ Acetaminophen-Co / Active Tablets 300-30mg Oshae, deine #3 0000 Lida VARGAS Doxycycline / Active Capsules 100mg Oshae, Monohydrate Lida VARGAS Neomycin/Polymyx / Active Suspension 3.5-55339 Unknown in/Hydrocortison 0000 - e (Otic) Mupirocin / Active Ointment 2% Unknown 0000 Chlorpromazine / Active Tablets 50mg Duplan, HCL Juan HERNANDEZ Oseltamivir / Active Capsules 75mg Oshae, Phosphate Lida VARGAS Doxycycline / Active Capsules 100mg Sawyer Hyclate 0000 Maico Chapman Coamo / Active Tablets 300mg Duplan, Carbonate 0000 Juan HERNANDEZ Sulfamethoxazole / Active Tablets 800-160mg Unknown /Trimethoprim DS 0000 Quetiapine / Active Tablets 400mg Unknown Fumarate 0000 Divalproex / Active Tablets ER 500mg Duplan, Sodium ER 0000 24HR Juan HERNANDEZ Triamcinolone / Active Ointment 0.5% Unknown Acetonide 0000 Divalproex / Active Tablets ER 250mg Duplan, Sodium ER 0000 24HR Juan HERNANDEZ Propranolol HCL / Active Tablets 20mg Duplan, 0000 Juan Propranolol HCL / Hx Tablets 60mg Duplan, 0000 - 2018 Propranolol HCL / Hx Tablets 40mg Unknown - 2018 Immunizations Description No Information Available Vital Signs Description No Information Available Results Description No Information Available Procedures Date Code Description Status 01/07/2018 28888 No Show Fee Completed Encounters Type Date Location Provider Dx Diagnosis Office Visit 12/22/2018 [place] Hakeem Montoya H61.23 Impacted cerumen, 1:30p 10/26/07 MD Tory bilateral Office Visit 06/17/2018 [place] Hakeem Montoya H92.01 Otalgia, right ear 2:00p 10/26/07 MD [facility] Office Visit 03/11/2018 [place] Avi Frey H92.03 Otalgia, bilateral 2:45p 10/26/07 H61.23 Impacted cerumen, bilateral Office Visit 11/12/2017 [place] Avi Frey S02.2xxA Fracture of 9:15a 10/26/07 nasal bones, init encntr for closed fracture Plan of Treatment No Information Available
[2019-01-14 11:12] LABS: Urine Appearance Clear; Urine Bilirubin Negative (Negative); Urine Blood Negative (Negative); Urine Color Straw; Urine Glucose Negative (Negative); Urine Ketones Negative (Negative); Urine Nitrite Negative (Negative); Urine Protein Negative (Negative); Urine Specific Gravity 1.006 (1.010-1.030); Urine Urobilinogen Negative (Negative)
[2019-01-14 11:21] LABS: Albumin 5.1 g/dL (3.2-5.2); Albumin/Globulin Ratio 2.4 (1-3); BUN/Creatinine Ratio 10.2 (8-20); Calcium 10.3 mg/dL (8.6-10.3); EGFR Non-African American 209.1 (>60); Globulin 2.1 g/dL (2-4); Potassium 4.1 mmol/L (3.5-5.0); Total Bilirubin 0.5 mg/dL (0.2-1.0); Total Protein 7.2 g/dL (6.4-8.9)
[2019-01-14 11:49] LABS: Lithium 0.69 mmol/L (0.6-1.2)
[2019-01-14] MEDS ORDERED: Acetaminophen TAB* 325 MG PO ONE (11:58)
[2019-01-14 12:04] LABS: TSH (Thyroid Stimulating Horm) 1.53 mcIU/mL (0.34-5.60)
[2019-01-14 12:06] LABS: Free T4 0.72 ng/dL (0.61-1.12)
[2019-01-14 12:13] LABS: ABS Basophils 0 10^3/ul (0-0.2); ABS Eosinophils 0.2 10^3/ul (0-0.6); ABS Lymphocytes 1.6 10^3/ul (1.0-4.8); ABS Monocytes 0.6 10^3/ul (0-0.8); ABS Neutrophils 6.5 10^3/ul (1.5-7.7); ABS Nucleated RBC 0 10^3/ul; Eosinophil % 1.8 %; Hematocrit 41 % (36-46); Hemoglobin 14.4 g/dL (14.0-18.0); Lymphocyte % 18.2 %; Mean Corpuscular HGB Conc 35 g/dL (31-36); Mean Corpuscular Hemoglobin 29 pg (27-31); Mean Corpuscular Volume 84 fL (80-94); Mean Platelet Volume 7.5 fL (7.4-10.4); Nucleated Red Blood Cells % 0.1; Platelet Count 305 10^3/uL (150-450); Red Blood Count 4.92 10^6 /uL (4.18-5.48); Red Cell Distribution Width 13 % (10.5-15)
[2019-01-14 12:35] VITALS: BP 128/70
--- NOTE | 2019-01-14 12:54 | ED ---
Seizure - HPI Summary HPI Summary: The patient is a 23-year-old nonverbal male with a history of a seizure disorder presenting to the ED with a seizure which occurred approximately 1.5 hours prior to arrival. Aid at bedside states he refused his evening medications which include Lamictal and lithium. The aide also states he always takes his medications as prescribed. Patient sees Dr. Higuera. The aide states this seizure was witnessed, lasting approximately 15 seconds with no obvious postictal period. Patient appears at his baseline per aid. Aid also states he went to bed at 6:30am and was awoke at 8:30a to attend group. This is when the witnessed seizure occurred. - History Of Current Complaint Chief Complaint: EDSeizure Time Seen by Provider: 01/14/19 09:44 Hx Obtained From: Patient Onset/Duration: Sudden Onset Location Of Seizure: All Extremities Character: Generalized Clonic-Tonic Aggravating Factor(s): Nothing, Sleep Deprivation, Meds Non-compliant Alleviating Factor(s): Spontaneous Resolution Associated Signs And Symptoms: Negative - Risk Factors SAH Risk Factors: Negative Meningitis Risk Factors: Negative SDH Risk Factor: Male, Seizures - Allergies/Home Medications Allergies/Adverse Reactions: Allergies Allergy/AdvReac Type Severity Reaction Status Date / Time bee venom protein (honey bee) Allergy Intermediate Unknown Verified 01/14/19 09: 50 Reaction Details clonazepam Allergy profound Verified 01/14/19 09:50 agitation hydroxyzine Allergy Unknown Verified 01/14/19 09:50 Reaction Details lactose Allergy GI Upset Verified 01/14/19 09:50 lorazepam Allergy profound Verified 01/14/19 09:50 agitation Benzodiazepines AdvReac PAROXISMAL Verified 01/14/19 09:50 REACTION Home Medications: Home Medications Cefdinir 300 mg PO BID 01/14/19 [History Confirmed 01/14/19] Propranolol HCl 20 mg PO BID 01/14/19 [History Confirmed 01/14/19] chlorproMAZINE TAB* [Thorazine TAB*] 50 mg PO TID MDD 300 mg 01/14/19 [History Confirmed 01/14/19] lamoTRIgine TAB(*) [Lamictal TAB(*)] 300 mg PO DAILY 01/14/19 [History Confirmed 01/14/19] PMH/Surg Hx/FS Hx/Imm Hx Previously Healthy: Yes Endocrine/Hematology History: Reports: Hx Thyroid Disease, Hx Anemia - MILDLY IN THE PAST Denies: Hx Anticoagulant Therapy, Hx Diabetes Cardiovascular History: Denies: Hx Congestive Heart Failure, Hx Deep Vein Thrombosis, Hx Hypertension , Hx Myocardial Infarction, Hx Pacemaker/ICD, Other Cardiovascular Problems/ Disorders Respiratory History: Reports: Hx Seasonal Allergies, Other Respiratory Problems/ Disorders - DX WITH PNEUMONIA Denies: Hx Asthma, Hx Chronic Obstructive Pulmonary Disease (COPD), Hx Lung Cancer, Hx Pneumonia, Hx Pulmonary Embolism GI History: Reports: Hx Gastroesophageal Reflux Disease - IN THE PAST, Hx Irritable Bowel - POSSIBLE, CHRONIC DIARHEA AND CONSTAPATION, Other GI Disorders - possible gerd Denies: Hx Gall Bladder Disease, Hx Gastrointestinal Bleed, Hx Ulcer, Hx Urosepsis History: Denies: Hx Kidney Stones, Hx Renal Disease, Other Problems/Disorders Musculoskeletal History: Denies: Other Musculoskeletal History Sensory History: Denies: Hx Contacts or Glasses, Hx Hearing Aid Opthamlomology History: Denies: Hx Contacts or Glasses Neurological History: Reports: Hx Developmental Delay, Hx Migraine, Hx Seizures - NEW ONSET- A YR AGO, Other Neuro Impairments/Disorders - SEVERE AUTISM Denies: Hx Dementia, Hx Transient Ischemic Attacks (TIA) Psychiatric History: Reports: Hx Anxiety - ANXIETY WITH AUTISM, Hx Inpatient Treatment, Hx Community Mental Health Tx, Hx Bipolar Disorder, Hx of Violent Episodes Against Others, Other Psychiatric Issues/Disorders - Autism Denies: Hx Eating Disorder, Hx Depression, Hx Panic Disorder, Hx Schizophrenia - Surgical History Surgery Procedure, Year, and Place: WISDOM TEETH EXTRACTIONS Hx Anesthesia Reactions: No - Immunization History Date of Tetanus Vaccine: 09/2006 Date of Influenza Vaccine: utd Hx Pertussis Vaccination: No Immunizations Up to Date: Yes Infectious Disease History: No Infectious Disease History: Reports: Hx of Known/Suspected MRSA Denies: Hx Clostridium Difficile, Hx Hepatitis, Hx Human Immunodeficiency Virus (HIV), Hx Shingles, Hx Tuberculosis, Hx Known/Suspected VRE, Hx Known/ Suspected VRSA, History Other Infectious Disease, Traveled Outside the [place] in Last 30 Days - Family History Known Family History: Negative: Cardiac Disease, Hypertension, Diabetes, Renal Disease, Respiratory Disease, Seizure Disorder, Blood Disorder, Other - Social History Occupation: Unemployed, Disabled Lives: With Family Alcohol Use: None Hx Substance Use: No Substance Use Type: Reports: None Hx Tobacco Use: No Smoking Status (MU): Never Smoked Tobacco Have You Smoked in the Last Year: No Review of Systems Constitutional: Negative Negative: Fever, Chills, Fatigue, Skin Diaphoresis Negative: Palpitations, Chest Pain Negative: Shortness Of Breath, Cough Genitourinary: Negative Positive: no symptoms reported, see HPI Negative: Arthralgia, Myalgia Negative: Headache, Weakness Psychological: Normal All Other Systems Reviewed And Are Negative: Yes Physical Exam Triage Information Reviewed: Yes Vital Signs On Initial Exam: Initial Vitals Temp Pulse Resp BP Pulse Ox 98.7 F 103 18 105/61 99 01/14/19 09:50 01/14/19 09:50 01/14/19 09:50 01/14/19 09:50 01/14/19 09:50 Vital Signs Reviewed: Yes Appearance: Positive: Well-Appearing, Well-Nourished Skin: Positive: Warm, Skin Color Reflects Adequate Perfusion Head/Face: Positive: Normal Head/Face Inspection Eyes: Positive: EOMI, Conjunctiva Clear Neck: Positive: Supple, No Lymphadenopathy Respiratory/Lung Sounds: Positive: Clear to Auscultation, Breath Sounds Present Cardiovascular: Positive: RRR, Pulses are Symmetrical in both Upper and Lower Extremities Musculoskeletal: Positive: Strength/ROM Intact Neurological: Positive: Normal Gait Diagnostics - Vital Signs Vital Signs Temp Pulse Resp BP Pulse Ox 01/14/19 12:35 99 F 85 17 128/70 99 01/14/19 10:00 102 96 01/14/19 09:59 99 96 01/14/19 09:50 98.7 F 103 18 105/61 99 - Laboratory Lab Results: Lab Results 01/14/19 01/14/19 01/14/19 Range/Units 10:20 10:43 10:43 WBC 9.0 (3.5-10.8) 10^3/uL RBC 4.92 (4.18-5.48) 10^6 /uL Hgb 14.4 (14.0-18.0) g/dL Hct 41 (36-46) % MCV 84 (80-94) fL MCH 29 (27-31) pg MCHC 35 (31-36) g/dL RDW 13 (10.5-15) % Plt Count 305 (150-450) 10^3/uL MPV 7.5 (7.4-10.4) fL Neut % (Auto) 72.8 % Lymph % (Auto) 18.2 % Granite % (Auto) 6.7 % Eos % (Auto) 1.8 % Baso % (Auto) 0.5 % Absolute Neuts (auto) 6.5 (1.5-7.7) 10^3/ul Absolute Lymphs (auto) 1.6 (1.0-4.8) 10^3/ul Absolute Monos (auto) 0.6 (0-0.8) 10^3/ul Absolute Eos (auto) 0.2 (0-0.6) 10^3/ul Absolute Basos (auto) 0 (0-0.2) 10^3/ul Absolute Nucleated RBC 0 10^3/ul Nucleated RBC % 0.1 Sodium 137 (135-145) mmol/L Potassium 4.1 (3.5-5.0) mmol/L Chloride 107 (101-111) mmol/L Carbon Dioxide 22 (22-32) mmol/L Anion Gap 8 (2-11) mmol/L BUN 5 L (6-24) mg/dL Creatinine 0.49 L (0.67-1.17) mg/dL Est GFR ( Amer) 253.0 (>60) Est GFR (Non-Af Amer) 209.1 (>60) BUN/Creatinine Ratio 10.2 (8-20) Glucose 109 H (70-100) mg/dL Calcium 10.3 (8.6-10.3) mg/dL Total Bilirubin 0.50 (0.2-1.0) mg/dL AST 22 (13-39) U/L ALT 36 (7-52) U/L Alkaline Phosphatase 93 (34-104) U/L Ammonia (16-53) mcmol/L Total Protein 7.2 (6.4-8.9) g/dL Albumin 5.1 (3.2-5.2) g/dL Globulin 2.1 (2-4) g/dL Albumin/Globulin Ratio 2.4 (1-3) TSH 1.53 (0.34-5.60) mcIU/mL Free T4 0.72 (0.61-1.12) ng/dL Urine Color Straw Urine Appearance Clear Urine pH 7.0 (5-9) Ur Specific [place] 1.006 L (1.010-1.030) Urine Protein Negative (Negative) Urine Ketones Negative (Negative) Urine Blood Negative (Negative) Urine Nitrate Negative (Negative) Urine Bilirubin Negative (Negative) Urine Urobilinogen Negative (Negative) Ur Leukocyte Esterase Negative (Negative) Urine Glucose Negative (Negative) [place] 0.69 (0.6-1.2) mmol/L 01/14/19 Range/Units 10:43 WBC (3.5-10.8) 10^3/uL RBC (4.18-5.48) 10^6 /uL Hgb (14.0-18.0) g/dL Hct (36-46) % MCV (80-94) fL MCH (27-31) pg MCHC (31-36) g/dL RDW (10.5-15) % Plt Count (150-450) 10^3/uL MPV (7.4-10.4) fL Neut % (Auto) % Lymph % (Auto) % Granite % (Auto) % Eos % (Auto) % Baso % (Auto) % Absolute Neuts (auto) (1.5-7.7) 10^3/ul Absolute Lymphs (auto) (1.0-4.8) 10^3/ul Absolute Monos (auto) (0-0.8) 10^3/ul Absolute Eos (auto) (0-0.6) 10^3/ul Absolute Basos (auto) (0-0.2) 10^3/ul Absolute Nucleated RBC 10^3/ul Nucleated RBC % Sodium (135-145) mmol/L Potassium (3.5-5.0) mmol/L Chloride (101-111) mmol/L Carbon Dioxide (22-32) mmol/L Anion Gap (2-11) mmol/L BUN (6-24) mg/dL Creatinine (0.67-1.17) mg/dL Est GFR ( Amer) (>60) Est GFR (Non-Af Amer) (>60) BUN/Creatinine Ratio (8-20) Glucose (70-100) mg/dL Calcium (8.6-10.3) mg/dL Total Bilirubin (0.2-1.0) mg/dL AST (13-39) U/L ALT (7-52) U/L Alkaline Phosphatase (34-104) U/L Ammonia 63 H (16-53) mcmol/L Total Protein (6.4-8.9) g/dL Albumin (3.2-5.2) g/dL Globulin (2-4) g/dL Albumin/Globulin Ratio (1-3) TSH (0.34-5.60) mcIU/mL Free T4 (0.61-1.12) ng/dL Urine Color Urine Appearance Urine pH (5-9) Ur Specific [place] (1.010-1.030) Urine Protein (Negative) Urine Ketones (Negative) Urine Blood (Negative) Urine Nitrate (Negative) Urine Bilirubin (Negative) Urine Urobilinogen (Negative) Ur Leukocyte Esterase (Negative) Urine Glucose (Negative) [place] (0.6-1.2) mmol/L Result Diagrams: 01/14/19 10:43 01/14/19 10:43 Lab Statement: Any lab studies that have been ordered have been reviewed, and results considered in the medical decision making process. Course/Dx - Course Course Of Treatment: Labs obtained including lithium and Lamictal levels. Per their request an A1c was also obtained, this is a send out. Patient appears at his baseline per age. Lungs CTA. RRR. Patient is nonverbal and is unable to answer questions. UA obtained and is WNL. Discussed with aid and mother. Mother OK with DC and will f/u with Dr. Higuera. This seizure likely d/t not taking his evening dose of medications. All medications given to him in the ED by mother (at home meds) at 10am. Patient appears well and will be DC'd home with seizures d/t medication non-compliance. - Diagnoses Provider Diagnoses: Seizure Discharge - Sign-Out/Discharge Documenting (check all that apply): Patient Departure Patient Received Moderate/Deep Sedation with Procedure: No - Discharge Plan Condition: Stable Disposition: HOME Patient Education Materials: Recurrent Seizures in Adults (ED) Referrals: Lida Pedersen MD [Primary Care Provider] - Additional Instructions: Please follow up with Dr. Higuera Continue to take all medications as prescribed Do not miss dosages - Billing Disposition and Condition Condition: STABLE Disposition: Home
== END 2019-01-14 12:35 | disposition home or self-care (01) ==
LOC: ED 09:40
DX: G40.909 Epilepsy, unspecified, not intractable, without status epilepticus (principal); F41.9 Anxiety disorder, unspecified; F84.0 Autistic disorder; Z88.8 Allergy status to other drugs, medicaments and biological substances; Z91.030 Bee allergy status
CPT/HCPCS: 36415; 80053; 80175; 80178; 81003; 82140; 83036; 84439; 84443; 85025; 99283; A9270-GY

== ENCOUNTER 2019-02-06 11:10 | Emergency (ER) | payer OTHER, MEDICAID ==
--- OUTSIDE RECORDS SUMMARY | 2019-02-06 13:36 | XMS REPORT | Continuity of Care Document ---
:1995 External Reference #:[id number] Author Name Jorge Leah Care Team Providers Name Role Phone Fady López MD Primary Care Physician Unavailable Payers Date Identification Numbers Payment Provider Subscriber Policy Number: [id number] [facility] Minal Cisneros PayID: [id number] [address] [place] [address] Policy Number: [id number] Medicaid Hakeem Esparza Group Name: 1 1 [address] PayID: [id number] [place] [address] Advance Directives Description No Information Available Problems Date Description Provider Status Onset: 01/22/2018 Epilepsy Arias Higuera MD Active Onset: 01/22/2018 Adverse effect of other antiepileptic and Arias Higuera MD Active sedative-hypnotic drugs, subsequent encounter Family History Description No Information Available Social History Type Date Description Comments Sex Unknown ETOH Use Denies alcohol use Tobacco Use Start: Unknown Patient has never smoked Smoking Status Reviewed: 01/27/19 Patient has never smoked Allergies, Adverse Reactions, Alerts Date Description Reaction Status Severity Comments 01/22/2018 Bee Sting Active 01/22/2018 Benzodiazepines profound aggitation Active 01/22/2018 NKDA Inactive Medications Medication Date Status Form Strength Qnty SIG Indications Ordering Provider Lamictal 08/12 Active Tablets 100mg 150ta 2 tabs by bs mouth MD Kalen every morning and 3 tabs by mouth every night Loratadine 00 Active Tablets 10mg 1 by mouth Unknown /0000 every day Mirtazapine Active Tablets 15mg take one Unknown tablet by mouth at bedtime Epinephrine Active Solution 0.3mg/0.3 1 Auto-Inje ML injection ct as needed allergic reaction [place]son-Gest Antacid Active Chewtabs 500mg 1 tab po Unknown / qd Levothyroxine Active Tablets 50mcg 1 by mouth Unknown Sodium every day [place] Active Capsules 300mg 1 by mouth Unknown Carbonate bid Ensure Enlive Active Liquid drink 1 Unknown shake tid in between meals Triazolam Active Tablets 0.25mg 3 tabs po Unknown / before medical appointmen t [place] Active Tablets 600mg 2 tabs bid Unknown Carbonate ER ER VSL#3 Active Capsules 112.5Bil 1 tab po Unknown four times a day Quetiapine Active Tablets 200mg 4 tabs a Unknown Fumarate day Doxycycline Active Capsules 100mg one tablet Unknown Hyclate twice daily Hydrocortisone Active Cream 1% apply twice a day as needed Sertraline HCL Active Tablets 50mg 1 by mouth Unknown every day Propranolol HCL Active Tablets 40mg 1 by mouth Unknown bid Desonide Active Ointment 0.05% tid as Unknown / needed Chlorpromazine Active Tablets 50mg 1 po 3x Unknown HCL daily Chlorhexidine Active Solution 0.12% swish and Unknown Gluconate spit 10 milliliter s twice a day Diphenhydramine Active Tablets 50mg 1 cap po Unknown HCL Maximum q6hrs as Strength needed Acetaminophen Active Tablets 325mg 2 tablets Unknown by mouth every 4 hours as needed for pain/fever Lactulose Active Solution 10GM/15ML 30 ml's O'rafael, MD Gurmeet Latham Active Capsules 600mg 2 by mouth Unknown bid Lamictal 08/11 Hx Tablets 100mg 90tab take 200mg Margarito S. /2018 s in a.m Novi, - 300mg at M.D. 08/11 bedtime /2017 Lamictal 10/17 Hx Tablets 200mg 60tab 1 by mouth s twice a MD Kalen - day 09/06 Lamictal 06/10 Hx Tablets 200mg 60tab 1 by mouth s twice a MD Kalen - day 08/11 Onfi 05/14 Hx Tablets 10mg 16tab two 1/2 s tabs at MD Kalen - bedtime [...] 01/22 Hx Tablets 25mg 60tab take 2 s tablets by Adela Maldonado - mouth 06/09 morning ( along with 100mg tablet) Lamotrigine 01/22 Hx Kit 25(21)-50 1kit Starter G40.909 (7)mg kit use as MD Kalen - directed 04/05 Onfi 01/13 Hx Tablets 10mg 45tab 1 tab s twice a Elsy, - day for a M.DuLis 05/14 week 1/2 tabone tab every night at bedtime for 2 wks then 1 tab every night at bedtime for wk th Lamictal 01/13 Hx Tablets 25mg 120ta take 1 bs tablet MD Kalen - daily. . 01/22 Immunizations Description No Information Available Vital Signs Date Vital Result Comment 01/27/2019 10:26am Height 69 inches 5'9" Weight 180.00 lb BMI (Body Mass Index) 26.6 kg/m2 10/25/2018 10:41am Weight 168.12 lb 07/13/2018 9:30am Weight 154.00 lb BP Systolic Sitting 110 mmHg BP Diastolic Sitting 60 mmHg 01/22/2018 11:21am Weight 151.50 lb BP Systolic 110 mmHg BP Diastolic 64 mmHg Results Test Date Facility Test Result H/L Range Note Laboratory test 12/09/2018 [facility] Ammonia 43 mcmol/L N 16- 53 finding [address] [place] [address] [phone] CBC No Diff 12/09/2018 [facility] White Blood 8.1 10^3/uL N 3.5-10.[address] [place] [address] [phone] Red Blood Count 4.90 10^6/uL N 4.00-5.40 Hemoglobin 14.3 g/dL N 14.0-18.0 Hematocrit 42 % N 42-52 Mean Corpuscular Volume 85 fL N 80-94 Mean Corpuscular Hemoglobin 29 pg N 27-31 Mean Corpuscular HGB Conc 34 g/dL N 31-36 Red Cell Distribution Width 13 % N 10.5-15 Platelet Count 301 10^3/uL N 150-450 Mean Platelet Volume 7.3 fL Low 7.4-10.4 Urinalysis Profile 12/09/2018 [facility] Urine Color Yellow [address] [place] [address] [phone] Urine Appearance Clear Urine Specific [place] 1.013 N 1.010-1.030 Urine pH 6.0 N 5-9 Urine Urobilinogen Negative Negative Urine Ketones Negative Negative Urine Protein Negative Negative Urine Leukocytes Negative Negative Urine Blood Negative Negative * * Abnormal Negative 1 Urine Nitrite Negative Negative Urine Bilirubin Negative Negative Urine Glucose Negative Negative Comp Metabolic Panel 12/09/2018 [facility] Sodium 136 mmol/L N 135-145 [address] [place] [address] [phone] Potassium 4.3 mmol/L N 3.5-5.0 Chloride 103 mmol/L N 101-111 Co2 Carbon Dioxide 27 mmol/L N 22-32 Anion Gap 6 mmol/L N 2-11 Glucose 107 mg/dL High 70-100 Blood Urea Nitrogen 8 mg/dL N 6-24 Creatinine 0.63 mg/dL Low 0.67-1.17 BUN/Creatinine Ratio 12.7 N 8-20 Calcium 10.8 mg/dL High 8.6-10.3 Total Protein 7.2 g/dL N 6.4-8.9 Albumin 5.0 g/dL N 3.2-5.2 Globulin 2.2 g/dL N 2-4 Albumin/Globulin Ratio 2.3 N 1-3 Total Bilirubin 0.60 mg/dL N 0.2-1.0 Alkaline Phosphatase 94 U/L N 34-104 Alt 25 U/L N 7-52 Ast 15 U/L N 13-39 Egfr Non- 156.5 >60 Egfr 189.3 >60 2 Laboratory test 12/09/2018 [facility] [place] 1.32 mmol/L High 0.6-1.2 finding [address] [place] [address] [phone] TSH (Thyroid Stim Horm) 0.98 mcIU/mL N 0.34-5.60 Urinalysis Profile 09/08/2018 [facility] Urine Color Yellow 3 [address] [place] [address] [phone] Urine Appearance Clear Urine Specific [place] 1.010 N 1.010-1.030 Urine pH 7.0 N 5-9 Urine Urobilinogen Negative Negative Urine Ketones Negative Negative Urine Protein Negative Negative Urine Leukocytes Negative Negative Urine Blood Negative Negative Urine Nitrite Negative Negative Urine Bilirubin Negative Negative Urine Glucose Negative Negative CBC No Diff 07/29/2018 [facility] White Blood 6.7 10^3/uL N 3.5-10.8 [address] [facility] [place] [address] [phone] Red Blood Count 4.56 10^6/uL N 4.00-5.40 Hemoglobin 13.6 g/dL Low 14.0-18.0 Hematocrit 39 % Low 42-52 Mean Corpuscular Volume 85 fL N 80-94 Mean Corpuscular Hemoglobin 30 pg N 27-31 Mean Corpuscular HGB Conc 35 g/dL N 31-36 Red Cell Distribution Width 13 % N 10.5-15 Platelet Count 257 10^3/uL N 150-450 Mean Platelet Volume 7.0 um3 Low 7.4-10.4 Laboratory test 07/29/2018 [facility] Ammonia 55 mcmol/L High 16-53 [address] [place] [address] [phone] Comp Metabolic 07/29/2018 [facility] Sodium 137 mmol/L N 135- 145 Panel [address] [place] [address] [phone] Chloride 108 mmol/L N 101-111 Co2 Carbon Dioxide 24 mmol/L N 22-32 Glucose 101 mg/dL High 70-100 Blood Urea Nitrogen 8 mg/dL N 6-24 Creatinine 0.48 mg/dL Low 0.67-1.17 BUN/Creatinine Ratio 16.7 N 8-20 Calcium 10.2 mg/dL N 8.6-10.3 Total Protein 6.5 g/dL N 6.4-8.9 Albumin 4.7 g/dL N 3.2-5.2 Globulin 1.8 g/dL Low 2-4 Albumin/Globulin Ratio 2.6 N 1-3 Total Bilirubin 0.50 mg/dL N 0.2-1.0 Alkaline Phosphatase 78 U/L N 34-104 Alt 17 U/L N 7-52 Egfr Non- 214.1 >60 Egfr 259.1 >60 4 Potassium TNP mmol/L 3.5-5.0 5 Anion Gap 5 mmol/L N 2-11 Ast TNP U/L 13-39 6 Laboratory test 07/29/2018 [facility] [place] 0.74 mmol/L N 0.6-1.2 7 [address] [place] [address] [phone] TSH (Thyroid Stim Horm) 0.07 mcIU/mL Low 0.34-5.60 8 Urinalysis Profile 07/29/2018 [facility] Urine Color Yellow [address] [place] [address] [phone] Urine Appearance Clear Urine Specific [place] 1.010 N 1.010-1.030 Urine pH 7.0 N 5-9 Urine Urobilinogen Negative Negative Urine Ketones Negative Negative Urine Protein Negative Negative Urine Leukocytes Negative Negative Urine Blood Negative Negative Urine Nitrite Negative Negative Urine Bilirubin Negative Negative Urine Glucose Negative Negative Laboratory test 06/03/2018 [facility] [place] 0.90 mmol/L N 0.6-1.2 finding [address] [place] [address] [phone] TSH (Thyroid Stim Horm) 1.67 mcIU/mL N 0.34-5.60 Lamotrigine (Lamictal) 6.0 g/mL 2.5 - 15.0 9 Comp Metabolic Panel 06/03/2018 [facility] Sodium 138 mmol/L N 135-145 [address] [place] [address] [phone] Potassium 4.4 mmol/L N 3.5-5.0 Chloride 107 mmol/L N 101-111 Co2 Carbon Dioxide 27 mmol/L N 22-32 Anion Gap 4 mmol/L N 2-11 Glucose 85 mg/dL N 70-100 Blood Urea Nitrogen 5 mg/dL Low 6-24 Creatinine 0.55 mg/dL Low 0.67-1.17 One Over Creatinine 1.81 mg/dL High 0.67-1.17 BUN/Creatinine Ratio 9.1 N 8-20 Calcium 10.4 mg/dL High 8.6-10.3 Total Protein 6.7 g/dL N 6.4-8.9 Albumin 4.8 g/dL N 3.2-5.2 Globulin 1.9 g/dL Low 2-4 Albumin/Globulin Ratio 2.5 N 1-3 Total Bilirubin 0.40 mg/dL N 0.2-1.0 Alkaline Phosphatase 84 U/L N 34-104 Alt 14 U/L N 7-52 Ast 12 U/L Low 13-39 Egfr Non- 183.0 >60 Egfr 221.4 >60 10 Laboratory test 06/03/2018 [facility] Ammonia 56 mcmol/L High 16-[address] [place] [address] [phone] CBC Auto Diff 06/03/2018 [facility] White Blood 7.0 10^3/uL N 3.5-10.[address] [place] [address] [phone] Red Blood Count 4.78 10^6/uL N 4.00-5.40 Hemoglobin 14.2 g/dL N 14.0-18.0 Hematocrit 41 % Low 42-52 Mean Corpuscular Volume 87 fL N 80-94 Mean Corpuscular Hemoglobin 30 pg N 27-31 Mean Corpuscular HGB Conc 34 g/dL N 31-36 Red Cell Distribution Width 13 % N 10.5-15 Platelet Count 262 10^3/uL N 150-450 Mean Platelet Volume 7.2 um3 Low 7.4-10.4 Abs Neutrophils 4.2 10^3/uL N 1.5-7.7 Abs Lymphocytes 2.0 10^3/uL N 1.0-4.8 Abs Monocytes 0.7 10^3/uL N 0-0.8 Abs Eosinophils 0.2 10^3/uL N 0-0.6 Abs Basophils 0 10^3/uL N 0-0.2 Abs Nucleated RBC 0 10^3/uL Granulocyte % 59.8 % N 38-83 Lymphocyte % 28.1 % N 25-47 Monocyte % 9.5 % High 0-7 Eosinophil % 2.2 % N 0-6 Basophil % 0.4 % N 0-2 Nucleated Red Blood Cells % 0.1 CBC Auto 05/07/2018 [facility] White Blood 15.4 10^3/uL High 3.5-10.[address] [place] [address] [phone] Red Blood Count 4.81 10^6/uL N 4.00-5.40 Hemoglobin 14.0 g/dL N 14.0-18.0 Hematocrit 41 % Low 42-52 Mean Corpuscular Volume 85 fL N 80-94 Mean Corpuscular Hemoglobin 29 pg N 27-31 Mean Corpuscular HGB Conc 34 g/dL N 31-36 Red Cell Distribution Width 13 % N 10.5-15 Platelet Count 269 10^3/uL N 150-450 Mean Platelet Volume 7.3 um3 Low 7.4-10.4 Abs Neutrophils 12.3 10^3/uL High 1.5-7.7 Abs Lymphocytes 2.0 10^3/uL N 1.0-4.8 Abs Monocytes 0.9 10^3/uL High 0-0.8 Abs Eosinophils 0.1 10^3/uL N 0-0.6 Abs Basophils 0 10^3/uL N 0-0.2 Abs Nucleated RBC 0 10^3/uL Granulocyte % 80.1 % N 38-83 Lymphocyte % 12.7 % Low 25-47 Monocyte % 6.1 % N 0-7 Eosinophil % 0.9 % N 0-6 Basophil % 0.2 % N 0-2 Nucleated Red Blood Cells % 0 Laboratory test 05/07/2018 [facility] Ammonia 74 mcmol/L High 16-53 [address] [place] [address] [phone] Comp Metabolic 05/07/2018 [facility] Sodium 135 mmol/L N 135- [address] [place] [address] [phone] Potassium 4.2 mmol/L N 3.5-5.0 Chloride 104 mmol/L N 101-111 Co2 Carbon Dioxide 24 mmol/L N 22-32 Anion Gap 7 mmol/L N 2-11 Glucose 98 mg/dL N 70-100 Blood Urea Nitrogen 9 mg/dL N 6-24 Creatinine 0.58 mg/dL Low 0.67-1.17 BUN/Creatinine Ratio 15.5 N 8-20 Calcium 9.9 mg/dL N 8.6-10.3 Total Protein 6.5 g/dL N 6.4-8.9 Albumin 4.6 g/dL N 3.2-5.2 Globulin 1.9 g/dL Low 2-4 Albumin/Globulin Ratio 2.4 N 1-3 Total Bilirubin 0.70 mg/dL N 0.2-1.0 Alkaline Phosphatase 69 U/L N 34-104 Alt 13 U/L N 7-52 Ast 15 U/L N 13-39 Egfr Non- 172.1 >60 Egfr 208.3 >60 12 Laboratory test 05/07/2018 [facility] Phosphorus 4.0 mg/dL N 2.5-5.0 [address] [place] [address] [phone] Magnesium 2.1 mg/dL N 1.9-2.7 14 [place] 1.16 mmol/L N 0.6-1.2 15 TSH (Thyroid Stim Horm) 2.20 mcIU/mL N 0.34-5.60 16 Lamotrigine (Lamictal) 5.8 g/mL 2.5 - 15.0 17 CBC Auto Diff 04/01/2018 [facility] White Blood 7.6 10^3/uL N 3.5-10.[address] [place] [address] [phone] Red Blood Count 4.91 10^6/uL N 4.0-5.4 Hemoglobin 14.3 g/dL N 14.0-18.0 Hematocrit 42 % N 42-52 Mean Corpuscular Volume 86 fL N 80-94 Mean Corpuscular Hemoglobin 29 pg N 27-31 Mean Corpuscular HGB Conc 34 g/dL N 31-36 Red Cell Distribution Width 14 % N 10.5-15 Platelet Count 290 10^3/uL N 150-450 Mean Platelet Volume 8.1 um3 N 7.4-10.4 Abs Neutrophils 4.7 10^3/uL N 1.5-7.7 Abs Lymphocytes 2.2 10^3/uL N 1.0-4.8 Abs Monocytes 0.5 10^3/uL N 0-0.8 Abs Eosinophils 0.2 10^3/uL N 0-0.6 Abs Basophils 0.1 10^3/uL N 0-0.2 Abs Nucleated RBC 0 10^3/uL Granulocyte % 61.6 % N 38-83 Lymphocyte % 28.7 % N 25-47 Monocyte % 6.6 % N 0-7 Eosinophil % 2.4 % N 0-6 Basophil % 0.7 % N 0-2 Nucleated Red Blood Cells % 0.1 Laboratory test 04/01/2018 [facility] Ammonia 75 mcmol/L High 16-53 19 [address] [place] [address] [phone] Urinalysis 04/01/2018 [facility] Urine Color Yellow Profile [address] [place] [address] [phone] Urine Appearance Clear Urine Specific [place] 1.009 Low 1.010-1.030 Urine pH 7.0 N 5-9 Urine Urobilinogen Negative Negative Urine Ketones Negative Negative Urine Protein Negative Negative Urine Leukocytes Negative Negative Urine Blood Negative Negative * * Abnormal Negative 20 Urine Nitrite Negative Negative Urine Bilirubin Negative Negative Urine Glucose Negative Negative Comp Metabolic Panel 04/01/2018 [facility] Sodium 138 mmol/L Low 139-145 [address] [place] [address] [phone] Potassium 4.2 mmol/L N 3.5-5.0 Chloride 105 mmol/L N 101-111 Co2 Carbon Dioxide 27 mmol/L N 22-32 Anion Gap 6 mmol/L N 2-11 Glucose 101 mg/dL High 70-100 Blood Urea Nitrogen 4 mg/dL Low 6-24 Creatinine 0.56 mg/dL Low 0.67-1.17 BUN/Creatinine Ratio 7.1 Low 8-20 Calcium 9.7 mg/dL N 8.6-10.3 Total Protein 6.5 g/dL N 6.4-8.9 Albumin 4.6 g/dL N 3.2-5.2 Globulin 1.9 g/dL Low 2-4 Albumin/Globulin Ratio 2.4 N 1-3 Total Bilirubin 0.40 mg/dL N 0.2-1.0 Alkaline Phosphatase 76 U/L N 34-104 Alt 16 U/L N 7-52 Ast 13 U/L N 13-39 Egfr Non- 180.8 >60 Egfr 232.5 >60 21 Laboratory test 04/01/2018 [facility] [place] 1.02 mmol/L N 0.6-1.2 [address] [place] [address] [phone] Valproic Acid (Depakene) < 13.0 g/mL Low 50-100 23 TSH (Thyroid Stim Horm) 0.96 mcIU/mL N 0.34-5.60 24 Free T4 (Free Thyroxine) 0.83 ng/dL N 0.61-1.12 25 Lamotrigine (Lamictal) 3.0 g/mL 2.5 - 15.0 26 CBC Auto Diff 02/18/2018 [facility] White Blood 8.8 10^3/uL N 3.5-10.[address] [place] [address] [phone] Red Blood Count 4.15 10^6/uL N 4.0-5.4 Hemoglobin 12.3 g/dL Low 14.0-18.0 Hematocrit 36 % Low 42-52 Mean Corpuscular Volume 86 fL N 80-94 Mean Corpuscular Hemoglobin 30 pg N 27-31 Mean Corpuscular HGB Conc 35 g/dL N 31-36 Red Cell Distribution Width 14 % N 10.5-15 Platelet Count 250 10^3/uL N 150-450 Mean Platelet Volume 7.9 um3 N 7.4-10.4 Abs Neutrophils 4.5 10^3/uL N 1.5-7.7 Abs Lymphocytes 3.4 10^3/uL N 1.0-4.8 Abs Monocytes 0.7 10^3/uL N 0-0.8 Abs Eosinophils 0.2 10^3/uL N 0-0.6 Abs Basophils 0 10^3/uL N 0-0.2 Abs Nucleated RBC 0 10^3/uL Granulocyte % 50.5 % N 38-83 Lymphocyte % 38.9 % N 25-47 Monocyte % 7.7 % High 0-7 Eosinophil % 2.4 % N 0-6 Basophil % 0.5 % N 0-2 Nucleated Red Blood Cells % 0 Laboratory test 02/18/2018 [facility] Ammonia 53 mcmol/L N 16- 53 finding [address] [place] [address] [phone] Comp Metabolic Panel 02/18/2018 [facility] Sodium 140 mmol/L N 139-145 [address] [place] [address] [phone] Potassium 3.7 mmol/L N 3.5-5.0 Chloride 111 mmol/L N 101-111 Co2 Carbon Dioxide 24 mmol/L N 22-32 Anion Gap 5 mmol/L N 2-11 Glucose 104 mg/dL High 70-100 Blood Urea Nitrogen 6 mg/dL N 6-24 Creatinine 0.58 mg/dL Low 0.67-1.17 BUN/Creatinine Ratio 10.3 N 8-20 Calcium 9.1 mg/dL N 8.6-10.3 Total Protein 5.6 g/dL Low 6.4-8.9 Albumin 4.0 g/dL N 3.2-5.2 Globulin 1.6 g/dL Low 2-4 Albumin/Globulin Ratio 2.5 N 1-3 Total Bilirubin 0.40 mg/dL N 0.2-1.0 Alkaline Phosphatase 73 U/L N 34-104 Alt 14 U/L N 7-52 Ast 14 U/L N 13-39 Egfr Non- 173.6 >60 Egfr 223.3 >60 27 Laboratory test 02/18/2018 [facility] Phosphorus 3.8 mg/dL N 2.5-5.0 finding [address] [place] [address] [phone] Magnesium 2.0 mg/dL N 1.9-2.7 [place] 0.85 mmol/L N 0.6-1.2 TSH (Thyroid Stim Horm) 1.81 mcIU/mL N 0.34-5.60 Free T4 (Free Thyroxine) 0.89 ng/dL N 0.61-1.12 T3 Total 0.81 ng/mL Low 0.87-1.78 Thyroxine 5.19 g/mL Low 6.09-12.23 Lamotrigine (Lamictal) 1.8 g/mL Abnormal 2.5 - 15.0 28 1 *Ascorbic acid is present which may interfere with detection of blood. 2 Because ethnic data is not always readily [...] 15-29 5 Kidney failure <15 (or dialysis) 3 ONLY URINE RECEIVED 4 Because ethnic data is not always [...] 5 Kidney failure <15 (or dialysis) 5 Specimen Hemolyzed. Result may not be valid. Unable to report test result due to hemolysis. 6 Unable to report test result due to hemolysis. 7 Verbal to [id number] by [email or web address] at 1057 on 07/29/18. Results read back accurately. 8 Verbal to [id number] by [email or web address] at 1057 on 07/29/18. Results read back accurately. 9 ADDITIONAL INFORMATION This test was developed and its performance characteristics determined by [facility] in a manner consistent with CLIA requirements. This test has not been cleared or approved by the U.S. Food and Drug Administration. Test Performed by: [facility] [address] [place] [address] 10 Because ethnic data is not always readily [...] 15-29 5 Kidney failure <15 (or dialysis) 11 STAT FAX COPIES OF RESULTS TO DR FADY LÓPEZ ()[id number] DR EDGAR ()[id number] [facility] CAL[facility] ()[id number] 12 Because ethnic data is not always readily [...] 15-29 5 Kidney failure <15 (or dialysis) 13 STAT FAX COPIES OF RESULTS TO DR FADY LÓPEZ ([id number] DR EDGAR ()[id number] THI CMHTrent CALDWELL ()[id number] 14 STAT FAX COPIES OF RESULTS TO DR FADY LÓPEZ ()[id number] DR EDGAR ()[id number] [facility] KALI CALDWELL ()[id number] 15 STAT FAX COPIES OF RESULTS TO DR FADY LÓPEZ ()[id number] DR EDGAR ()[id number] [facility] KALI CALDWELL ()[id number] 16 STAT FAX COPIES OF RESULTS TO DR FADY LÓPEZ ()[id number] DR EDGAR ()[id number] [facility] KALI CALDWELL ()[id number] 17 ADDITIONAL INFORMATION This test was developed and its performance characteristics determined by [facility] in a manner consistent with CLIA requirements. This test has not been cleared or approved by the U.S. Food and Drug Administration. Test Performed by: [facility] [address] [place] [address] 18 FAX RESULTS TO KALI ABRAHAM RN AT [id number] 19 FAX RESULTS TO KALI ABRAHAM RN AT [id number] 20 *Ascorbic acid is present which may interfere with detection of blood. 21 Because ethnic data is not always readily [...] 15-29 5 Kidney failure <15 (or dialysis) 22 FAX RESULTS TO KALI ABRAHAM RN AT [id number] 23 FAX RESULTS TO KALI ABRAHAM RN AT [id number] 24 FAX RESULTS TO KALI ABRAHAM RN AT [id number] 25 FAX RESULTS TO KALI ABRAHAM RN AT [id number] 26 ADDITIONAL INFORMATION This test was developed and its performance characteristics determined by [facility] in a manner consistent with CLIA requirements. This test has not been cleared or approved by the U.S. Food and Drug Administration. Test Performed by: [facility] [email or web address] - [address] [address] 27 Because ethnic data is not always readily [...] 15-29 5 Kidney failure <15 (or dialysis) 28 ADDITIONAL INFORMATION This test was developed and its performance characteristics determined by [facility] in a manner consistent with CLIA requirements. This test has not been cleared or approved by the U.S. Food and Drug Administration. 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 Office 07/13/2018 Neurohospitalist Arias G40.909 Epilepsy, unsp, Visit 9:30a Clinic MD Kalen not intractable, without status epilepticus T42.6x5D Adverse effect of antiepileptic and sed-hypntc drugs, subs Z79.899 Other termite exterminator (current) drug therapy Office 04/30/2018 Neurohospitalist Arias G40.909 Epilepsy, unsp, Visit 11:30a Clinic MD Kalen not intractable, without status epilepticus Office 01/22/2018 Neurohospitalist Arias G40.909 Epilepsy, unsp, Visit 11:15a Clinic MD Kalen not intractable, without status epilepticus T42.6x5D Adverse effect of antiepileptic and sed-hypntc drugs, subs Office 12/12/2017 Neurohospitalist Arias G40.909 Epilepsy, unsp, Visit 10:28a Clinic MD Kalen not intractable, without status epilepticus E87.1 Hypo-osmolality and hyponatremia E72.20 Disorder of urea cycle metabolism, unspecified T42.6x5D Adverse effect of antiepileptic and sed-hypntc drugs, subs Office Visit 03/12/2013 [facility] Rodolfo Rivera 293.0 Delirium Due To 12:02p Assoc,pavan Ndiaye M.D. 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 His level is therapeutic and no need for change in dosage now. Ammonia slightly high but no need to treat at thsi point and defer to his metabolic expert as to whether and how he should be treatedFollow up:April
[2019-02-06 13:43] VITALS: BP 122/57
[2019-02-06] MEDS ORDERED: DOXYcycline CAP(*) 100 MG PO ONE (13:53)
--- NOTE | 2019-02-06 13:56 | UC ---
Skin Complaint HPI - HPI Summary HPI Summary: 23 yo male with tick noted left neck today unsure how long it has been attached - History of Current Complaint Chief Complaint: UCSkin Stated Complaint: TICK ON NECK Hx Obtained From: Family/Industrial Gas Servicer Supervisor Skin Exposure Onset/Duration: Hours Ago - noted Timing: Constant Pain Intensity: 0 Pain Scale Used: 0-10 Numeric Location: Discrete Related History: Insect Bite/Sting - Allergy/Home Medications Allergies/Adverse Reactions: Allergies Allergy/AdvReac Type Severity Reaction Status Date / Time bee venom protein (honey bee) Allergy Intermediate Unknown Verified 01/14/19 09: 50 Reaction Details Benzodiazepines AdvReac PAROXISMAL Verified 01/14/19 09:50 REACTION clonazepam AdvReac profound Verified 02/06/19 13:45 agitation hydroxyzine AdvReac Unknown Verified 02/06/19 13:45 Reaction Details lactose AdvReac GI Upset Verified 02/06/19 13:45 lorazepam AdvReac profound Verified 02/06/19 13:45 agitation Home Medications: Home Medications Triazolam TAB* [Halcion TAB*] 0.25 mg PO ONCE 02/06/19 [History Confirmed ] PMH/Surg Hx/FS Hx/Imm Hx Previously Healthy: Yes - autism/bipolar/ Psychological History: Bipolar Disorder, Other - self injurious behavior Other History Of: Negative For: HIV, Hepatitis B, Hepatitis C, Anticoagulant Therapy - Surgical History Surgical History: None Surgery Procedure, Year, and Place: WISDOM TEETH EXTRACTIONS - Family History Known Family History: Negative: Cardiac Disease, Hypertension, Diabetes, Renal Disease, Respiratory Disease, Seizure Disorder, Blood Disorder, Other - Social History Alcohol Use: None Substance Use Type: None Smoking Status (MU): Never Smoked Tobacco Have You Smoked in the Last Year: No - Immunization History Most Recent Influenza Vaccination: Unkown Most Recent Tetanus Shot: 09/30/06 Most Recent Pneumonia Vaccination: 05/11/19 Vaccination Up to Date: Yes Review of Systems All Other Systems Reviewed And Are Negative: Yes Constitutional: Positive: Negative Skin: Positive: Negative Eyes: Positive: Negative ENT: Positive: Negative Respiratory: Positive: Negative Cardiovascular: Positive: Negative Gastrointestinal: Positive: Negative Genitourinary: Positive: Negative Motor: Positive: Negative Neurovascular: Positive: Negative Musculoskeletal: Positive: Negative Neurological: Positive: Negative Psychological: Positive: Negative Physical Exam Triage Information Reviewed: Yes Completion Of Physical Exam Limited Due To: Patient is uncooperative with exam Appearance: Well-Appearing Vital Signs: Initial Vital Signs Temp 99.1 F 02/06/19 13:37 Pulse 97 02/06/19 13:37 Resp 16 02/06/19 13:37 BP 122/57 02/06/19 13:37 Pulse Ox 99 02/06/19 13:37 Vital Signs Reviewed: Yes Eyes: Positive: Conjunctiva Clear ENT: Negative: Nasal congestion, Nasal drainage, Trismus, Muffled voice, Hoarse voice Neck: Positive: Supple Respiratory: Positive: No respiratory distress Musculoskeletal: Positive: No Edema Neurological: Positive: Alert Psychological Exam: Normal Skin Exam: Other - tick left neck Course/Dx - Course Course Of Treatment: tick removed with tick twister - Diagnoses Provider Diagnosis: Tick bite Discharge - Sign-Out/Discharge Documenting (check all that apply): Patient Departure All imaging exams completed and their final reports reviewed: No Studies - Discharge Plan Condition: Stable Disposition: HOME Patient Education Materials: Tick Bite (ED) Referrals: Lida Pedersen MD [Primary Care Provider] - If Needed Additional Instructions: take two doxy with next meal - Billing Disposition and Condition Condition: STABLE Disposition: Home
== END 2019-02-06 14:06 | disposition home or self-care (01) ==
LOC: UCCORT 11:10
DX: S10.96XA Insect bite of unspecified part of neck, initial encounter (principal); W57.XXXA Bitten or stung by nonvenomous insect and other nonvenomous arthropods, initial encounter; Y92.9 Unspecified place or not applicable; Z88.8 Allergy status to other drugs, medicaments and biological substances; Z91.030 Bee allergy status; F84.0 Autistic disorder; F31.9 Bipolar disorder, unspecified
CPT/HCPCS: 99212; A9270-GY; G0463

== ENCOUNTER 2019-03-12 21:02 | Emergency (ER) | payer BC, MEDICAID ==
--- OUTSIDE RECORDS SUMMARY | 2019-03-12 21:08 | XMS REPORT | Continuity of Care Document ---
:1995 External Reference #:[id number] Author Name Vickie Stone Care Team Providers Name Role Phone Lida Robins M.D. Primary Care Physician Unavailable Payers Date Identification Numbers Payment Provider Subscriber Policy Number: [id number] [facility]ly [facility] Minal Rohitjuliettrung PayID: [id number] [address] [place] [address] Policy Number: [id number] Medicaid Hakeem Esparza PayID: [id number] [address] [place] [address] Advance Directives Description No Information Available Problems Active Problems Provider Date Autistic disorder Onset: Mental retardation Onset: Family History Date Family Member(s) Observation Comments Father No Current Problems Mother No Current Problems Social History Type Date Description Comments Sex Unknown Marital Status Single Work Status Unemployed ETOH Use Denies alcohol use Tobacco Use Start: Unknown Patient has never smoked Recreational Drug Use Denies Drug Use Smoking Status Reviewed: 03/08/19 Patient has never smoked Allergies, Adverse Reactions, Alerts Active Allergies Reaction Severity Comments Date Bee Stings 01/05/2018 Bee Pollen 01/26/2018 Benzodiazepines 01/26/2018 Lorazepam 01/26/2018 Vistaril 01/26/2018 Hydroxyproline 01/26/2018 Lactose 01/26/2018 Inactive Allergies NKDA 01/05/2018 Medications Active Medications SIG Qnty Indications Ordering Date Provider Loratadine 1 daily in in the Unknown 10mg Capsules morning Bacitracin (External) Unknown 500Unit/GM Ointment Doxycycline Hyclate 1 caps by mouth Unknown 100mg twice a day for 2 Capsules weeks then once a day for 2 weeks, then discontinue Triazolam Unknown 0.25mg Tablets [place] Carbonate Unknown 300mg Capsules Lamotrigine ER Unknown 25mg Tablets ER 24HR Onfi 1 tab @9am, 1 tab @ Unknown 10mg Tablets 9 pm po qd Diphenhydramine HCL 1 cap po q6h prn Unknown 50mg Capsules Chlorpromazine HCL Unknown 100mg Tablets Mupirocin Unknown 2% Ointment VSL#3 Unknown 112.5Bil Capsules Levothyroxine Sodium Unknown 50mcg Tablets SM Mineral Oil Unknown Oil [place]-Gest Antacid 1 tab po qd Unknown 500mg Chewtabs Epinephrine Unknown 0.3mg/0.3ML Solution Auto-Inject Therapeutic M With Beta 1 tab po qd Unknown Carotene Tablets Loradamed Unknown 10mg Tablets Desonide Unknown 0.05% Ointment Hydrocortisone Plus Unknown 1% Cream Acetaminophen Unknown 325mg Tablets Propranolol HCL 1 tab bid po Unknown 60mg Tablets Sertraline HCL 1 tab bid po Unknown 60mg Tablets Quetiapine Fumarate 1 Tab AT 8:00Am, 1 Unknown 200mg Tab AT 1PM and 2 Tablets tab at bedtime po qd [place] Carbonate Unknown 600mg Capsules Mirtazapine 12 Tab PO qd Unknown 15mg Tablets Dispers History Medications [place] Carbonate Tablet Unknown - 12/2017 Chlorpromazine HCL 50mg/2ML Unknown - Solution Immunizations Description No Information Available Vital Signs Description No Information Available Results Description No Information Available Procedures Date Code Description Status 01/26/2018 30507 New Patient Comprehensive Exam Completed 01/16/2015 16517 Est Patient Intermediate Exam Completed 01/18/2013 05770 Est Patient Intermediate Exam Completed 02/04/2011 73703 Est Patient Comprehensive Exam Completed 01/10/2009 84739 Determination Of Refractive State Completed 01/10/2009 18423 Est Patient Intermediate Exam Completed 12/15/2006 66787 Est Patient Comprehensive Exam Completed Encounters Type Date Location Provider Dx Diagnosis Office Visit 03/25/2005 Ganga Nelson, 299.00 Autistic Disorder 8:00a , pc M.D. Current Plan of Treatment 01/26/2018 - Silvia Cao O.D.F84.0 Autistic disorderComments:Smoking can increase the risk of developing or worsening any eye related disease, as well as affect your overall health. If you are a smoker, we strongly recommend that you quit.If you are not a smoker, we strongly recommend that you do not start.Follow up:as needed
--- OUTSIDE RECORDS SUMMARY | 2019-03-12 21:08 | XMS REPORT | Continuity of Care Document ---
:1995 External Reference #:[id number] Author Name Silvia Cao O.D. Address [address] [place] [address] Care Team Providers Name Role Phone Lida Robins M.D. Primary Care Physician Unavailable Payers Date Identification Numbers Payment Provider Subscriber Policy Number: [id number] [employer] Minal Rohitjuliettrung PayID: [id number] [address] [place] [address] Policy Number: [id number] Medicaid Hakeem Esparza PayID: [id number] [address] [place] [address] Advance Directives Description No Information Available Problems [...] weeks, then discontinue Triazolam Unknown 0.25mg Tablets [place] Carbonate Unknown 300mg Capsules Lamotrigine ER Unknown [...] 2 Tablets tab at bedtime po qd [place] Carbonate Unknown 600mg Capsules Mirtazapine 12 Tab PO qd Unknown 15mg Tablets Dispers History Medications [place] Carbonate Tablet Unknown - 12/2017 Chlorpromazine HCL 50mg/2ML Unknown - Solution Immunizations Description No Information Available Vital Signs Description No Information Available Results Description No Information Available Procedures Date Code Description Status 01/26/2018 29111 New Patient Comprehensive Exam Completed 01/16/2015 80166 Est Patient Intermediate Exam Completed 01/18/2013 59009 Est Patient Intermediate Exam Completed 02/04/2011 94599 Est Patient Comprehensive Exam Completed 01/10/2009 75960 Determination Of Refractive State Completed 01/10/2009 66357 Est Patient Intermediate Exam Completed 12/15/2006 38726 Est Patient Comprehensive Exam Completed Encounters Type Date Location Provider Dx Diagnosis Office Visit 03/25/2005 Ganga Nelson, 299.00 Autistic Disorder 8:00a , pc MJohn. Current Plan of Treatment 03/08/2019 - Silvia Cao O.D.F84.0 Autistic disorderComments:Smoking can increase the risk of developing or worsening any eye related disease, as well as affect your overall health. If you are a smoker, we strongly recommend that you quit.If you are not a smoker, we strongly recommend that you do not start.Follow up:as needed
--- OUTSIDE RECORDS SUMMARY | 2019-03-12 21:08 | XMS REPORT | Continuity of Care Document ---
:1995 External Reference #:[id number] Author Name Silvia Cao O.D. Address [address] [place] [address] Care Team Providers Name Role Phone Lida Robins M.D. Primary Care Physician Unavailable Payers Date Identification Numbers Payment Provider Subscriber Policy Number: [id number] [place] [employer] Minal Rohitjuliettrung PayID: [id number] [address] [place] [address] Policy Number: [id number] Medicaid Hakeem Esparza PayID: [id number] [address] [place] [address] Advance Directives Description No Information Available Problems [...] weeks, then discontinue Triazolam Unknown 0.25mg Tablets [place] Carbonate Unknown 300mg Capsules Lamotrigine ER Unknown [...] 2 Tablets tab at bedtime po qd [place] Carbonate Unknown 600mg Capsules Mirtazapine 12 Tab PO qd Unknown 15mg Tablets Dispers History Medications [place] Carbonate Tablet Unknown - 12/2017 Chlorpromazine HCL 50mg/2ML Unknown - Solution Immunizations Description No Information Available Vital Signs Description No Information Available Results Description No Information Available Procedures Date Code Description Status 01/26/2018 10494 New Patient Comprehensive Exam Completed 01/16/2015 69502 Est Patient Intermediate Exam Completed 01/18/2013 58728 Est Patient Intermediate Exam Completed 02/04/2011 44055 Est Patient Comprehensive Exam Completed 01/10/2009 96481 Determination Of Refractive State Completed 01/10/2009 50773 Est Patient Intermediate Exam Completed 12/15/2006 98765 Est Patient Comprehensive Exam Completed Encounters Type Date Location Provider Dx Diagnosis Office Visit 03/25/2005 Ganga Nelson, 299.00 Autistic Disorder 8:00a , pc MJohn. Current Plan of Treatment 01/26/2018 - Silvia Cao O.D.F84.0 Autistic disorderComments:Smoking can increase the risk of developing or worsening any eye related disease, as well as affect your overall health. If you are a smoker, we strongly recommend that you quit.If you are not a smoker, we strongly recommend that you do not start.Follow up:as needed
--- NOTE | 2019-03-12 21:17 | UC ---
Skin Complaint HPI - HPI Summary HPI Summary: staff at his residential facility found a tick on his right side this evening after being outside all day-- - History of Current Complaint Chief Complaint: UCForeignBody Time Seen by Provider: 03/12/19 21:03 Stated Complaint: TICK BITE Hx Obtained From: Family/Playground Director Hx From Patient Unobtainable Due To: Other - MRDD Onset/Duration: Sudden Onset Skin Exposure Onset/Duration: Hours Ago Timing: Constant Current Severity: None Location: Discrete Aggravating Factor(s): Nothing Alleviating Factor(s): Nothing Associated Signs & Symptoms: Positive: Negative Related History: Insect Bite/Sting - Allergy/Home Medications Allergies/Adverse Reactions: Allergies Allergy/AdvReac Type Severity Reaction Status Date / Time bee venom protein (honey bee) Allergy Intermediate Unknown Verified 01/14/19 09: 50 Reaction Details Benzodiazepines AdvReac PAROXISMAL Verified 01/14/19 09:50 REACTION clonazepam AdvReac profound Verified 02/06/19 13:45 agitation hydroxyzine AdvReac Unknown Verified 02/06/19 13:45 Reaction Details lactose AdvReac GI Upset Verified 02/06/19 13:45 lorazepam AdvReac profound Verified 02/06/19 13:45 agitation PMH/Surg Hx/FS Hx/Imm Hx Previously Healthy: No - MRDD, autism Endocrine History: Hypothyroidism Neurological History: Seizures Psychological History: Bipolar Disorder Other History Of: Negative For: HIV, Hepatitis B, Hepatitis C, Anticoagulant Therapy - Surgical History Surgical History: None Surgery Procedure, Year, and Place: WISDOM TEETH EXTRACTIONS - Family History Known Family History: Negative: Cardiac Disease, Hypertension, Diabetes, Renal Disease, Respiratory Disease, Seizure Disorder, Blood Disorder, Other - Social History Occupation: Disabled Lives: Assisted Living Alcohol Use: None Substance Use Type: None Smoking Status (MU): Never Smoked Tobacco Have You Smoked in the Last Year: No - Immunization History Most Recent Influenza Vaccination: Unkown Most Recent Tetanus Shot: 09/30/06 Most Recent Pneumonia Vaccination: 05/11/19 Vaccination Up to Date: Yes Review of Systems All Other Systems Reviewed And Are Negative: Yes Constitutional: Positive: Negative Skin: Positive: Other - tick on right side of lower back Eyes: Positive: Negative ENT: Positive: Negative Respiratory: Positive: Negative Cardiovascular: Positive: Negative Gastrointestinal: Positive: Negative Genitourinary: Positive: Negative Motor: Positive: Negative Neurovascular: Positive: Negative Musculoskeletal: Positive: Negative Neurological: Positive: Negative Psychological: Positive: Negative Is Patient Immunocompromised?: No Physical Exam Triage Information Reviewed: Yes Appearance: Well-Appearing - base line, No Pain Distress Vital Signs Reviewed: Yes Eye Exam: Normal Eyes: Positive: Conjunctiva Clear ENT Exam: Normal ENT: Positive: Normal ENT inspection, Muffled voice - baseline Neck exam: Normal Neck: Positive: Supple, Nontender Respiratory Exam: Normal Respiratory: Positive: Chest non-tender, No respiratory distress, No accessory muscle use Cardiovascular Exam: Normal Cardiovascular: Positive: RRR, Pulses Normal, Brisk Capillary Refill Musculoskeletal Exam: Normal Musculoskeletal: Positive: Strength Intact, ROM Intact Neurological Exam: Normal Neurological: Positive: Alert - baseline Psychological Exam: Normal - baseline Skin: Positive: Other - tick right lower side of back Re-Evaluation - Re-Evaluation First Eval Change: Improved - Tick removed in tact with ease Course/Dx - Course Course Of Treatment: soap and water wash, care tacker education regarding tick and lyme, follow with pcp prn - Diagnoses Provider Diagnosis: Tick bite Discharge - Sign-Out/Discharge Documenting (check all that apply): Patient Departure All imaging exams completed and their final reports reviewed: No Studies - Discharge Plan Condition: Stable Disposition: HOME Patient Education Materials: Lyme Disease (ED), Tick Bite (ED) Referrals: Lida Pedersen MD [Primary Care Provider] - If Needed - Billing Disposition and Condition Condition: STABLE Disposition: Home - Attestation Statements Provider Attestation: This patient was not seen or examined by me. I was available for consult.
[2019-03-12 21:31] VITALS: BP 123/79
== END 2019-03-12 21:30 | disposition home or self-care (01) ==
LOC: UCEAST 21:02
DX: S30.860A Insect bite (nonvenomous) of lower back and pelvis, initial encounter (principal); W57.XXXA Bitten or stung by nonvenomous insect and other nonvenomous arthropods, initial encounter; Y92.9 Unspecified place or not applicable; F84.0 Autistic disorder; Z88.8 Allergy status to other drugs, medicaments and biological substances; Z91.030 Bee allergy status; Z91.011 Allergy to milk products
CPT/HCPCS: 99212; G0463

== ENCOUNTER 2019-04-11 10:57 | Emergency (ER) | payer BC, MEDICAID ==
[2019-04-11 11:54] VITALS: BP 136/73
--- NOTE | 2019-04-11 12:23 | UC ---
Abdominal Pain Male HPI - HPI Summary HPI Summary: Pt is accompanied by mother and two caregivers from [facility]. Pt resides in [facility] during the work week and goes home on weekends. Mom reports that she has noted pt's abdomen has become firm and distended with onset of loose stools and now diarrhea. Pt's last BM was 04/10/19 and mom states that is was green in color and "pure diarrhea". - History of Current Complaint Chief Complaint: UCGI Stated Complaint: DIARRHEA Time Seen by Provider: 04/11/19 11:45 Hx Obtained From: Family/Security Operations Analyst Onset/Duration: Gradual Onset, Lasting Days - 10 Timing: Constant Severity Initially: Mild Severity Currently: Moderate Pain Intensity: 0 Location: Diffuse Radiates: Yes Character: Unable to describe Alleviating Factor(s): Nothing Associated Signs And Symptoms: Positive: Diarrhea - Risk Factors Testicular Torsion: Negative Cardiac Risk Factors: Negative - Allergies/Home Medications Allergies/Adverse Reactions: Allergies Allergy/AdvReac Type Severity Reaction Status Date / Time bee venom protein (honey bee) Allergy Intermediate Unknown Verified 04/11/19 11: 55 Reaction Details Benzodiazepines AdvReac PAROXISMAL Verified 04/11/19 11:55 REACTION clonazepam AdvReac profound Verified 04/11/19 11:55 agitation hydroxyzine AdvReac Unknown Verified 04/11/19 11:55 Reaction Details lactose AdvReac GI Upset Verified 04/11/19 11:55 lorazepam AdvReac profound Verified 04/11/19 11:55 agitation Home Medications: Home Medications Lactobacillus Rhamnosus R0011 [Probiotic Digestive Care] 1 each PO BID 04/11/19 [History Confirmed 04/11/19] Lactulose 30 gm PO QID 04/11/19 [History Confirmed 04/11/19] chlorproMAZINE TAB* [Thorazine TAB*] 50 mg PO TID 04/11/19 [History Confirmed ] PMH/Surg Hx/FS Hx/Imm Hx Previously Healthy: Yes Other History Of: Negative For: HIV, Hepatitis B, Hepatitis C, Anticoagulant Therapy - Surgical History Surgical History: None Surgery Procedure, Year, and Place: WISDOM TEETH EXTRACTIONS - Family History Known Family History: Negative: Cardiac Disease, Hypertension, Diabetes, Renal Disease, Respiratory Disease, Seizure Disorder, Blood Disorder, Other - Social History Occupation: Disabled - autistic Lives: [place] Alcohol Use: None Substance Use Type: None Smoking Status (MU): Never Smoked Tobacco Have You Smoked in the Last Year: No - Immunization History Most Recent Influenza Vaccination: Unkown Most Recent Tetanus Shot: 09/30/06 Most Recent Pneumonia Vaccination: 05/11/19 Vaccination Up to Date: Yes Review of Systems All Other Systems Reviewed And Are Negative: Yes Constitutional: Positive: Negative Skin: Positive: Negative Eyes: Positive: Negative ENT: Positive: Negative Respiratory: Positive: Negative Cardiovascular: Positive: Negative Gastrointestinal: Positive: Diarrhea, Other - abdominal distention Genitourinary: Positive: Negative Motor: Positive: Negative Neurovascular: Positive: Negative Musculoskeletal: Positive: Negative Neurological: Positive: Negative Psychological: Positive: Negative Is Patient Immunocompromised?: No Physical Exam Triage Information Reviewed: Yes Appearance: Well-Appearing, Other: - pt is cooperative with exam Vital Signs: Initial Vital Signs Temp 99.0 F 04/11/19 11:39 Pulse 109 04/11/19 11:39 Resp 18 04/11/19 11:39 BP 136/73 04/11/19 11:39 Pulse Ox 99 04/11/19 11:39 Vital Signs Reviewed: Yes Eye Exam: Normal Neck exam: Normal Respiratory: Positive: Normal breath sounds Cardiovascular Exam: Normal Abdomen Description: Positive: Distended, Other: - pt appeared to have RLQ discomfort Bowel Sounds: Positive: Hypoactive Musculoskeletal Exam: Normal Neurological Exam: Normal Psychological Exam: Normal Psychological: Positive: Normal Response To Family Skin Exam: Normal Abd Pain Male Course/Dx - Differential Dx/Clinical Impression Differential Diagnosis/HQI/PQRI: Bowel Obstruction Provider Diagnosis: Abdominal distension Discharge - Sign-Out/Discharge Documenting (check all that apply): Patient Departure All imaging exams completed and their final reports reviewed: No Studies - Discharge Plan Condition: Stable Disposition: HOME-RECOMMEND TO ED Patient Education Materials: Gas and Bloating (ED), Abdominal Pain (ED) Referrals: Lida Pedersen MD [Primary Care Provider] - As Soon As Possible Additional Instructions: Please go directly to the closest ER for further evaluation and testing. - Billing Disposition and Condition Condition: STABLE Disposition: Home-Recommend to ED
== END 2019-04-11 12:31 | disposition home health service (06) ==
LOC: UCCORT 10:57
DX: R14.0 Abdominal distension (gaseous) (principal); F84.0 Autistic disorder
CPT/HCPCS: 99212; G0463

== ENCOUNTER 2019-04-16 16:05 | Emergency (ER) | payer BC, MEDICAID ==
[2019-04-16 17:25] VITALS: BP 122/79
[2019-04-16] MEDS ORDERED: Amoxicillin/Clavulanate TAB* 875 MG PO ONE ×2 (17:38→17:39)
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
== END 2019-04-16 18:18 | disposition home or self-care (01) ==
LOC: UCCORT 16:05
DX: S51.852A Open bite of left forearm, initial encounter (principal); Y04.1XXA Assault by human bite, initial encounter; Y92.009 Unspecified place in unspecified non-institutional (private) residence as the place of occurrence of the external cause; F84.0 Autistic disorder; F89 Unspecified disorder of psychological development
CPT/HCPCS: 99213; A9270-GY; G0463

== ENCOUNTER 2019-08-02 21:04 | Emergency (ER) | payer BC, MEDICAID ==
--- OUTSIDE RECORDS SUMMARY | 2019-08-02 21:45 | XMS REPORT | Continuity of Care Document ---
:1995 External Reference #:[id number] Author Name Dayne Hernadez DO [facility] (transmitted by agent of provider Cristal Guerrero ) Address [address] [place] [address] Care Team Providers Name Role Phone Lida Robins MD - Family Medicine Care Team Information Surgery Tech Problems Active Problems Provider Date Epilepsy Arias Higuera MD Onset: 01/22/2018 Adverse effect of other antiepileptic and Arias Higuera MD Onset: 01/22/2018 sedative-hypnotic drugs, subsequent encounter Social History Type Date Description Comments Sex Unknown ETOH Use Denies alcohol use Tobacco Use Start: Unknown Patient has never smoked Smoking Status Reviewed: 04/25/19 Patient has never smoked Allergies, Adverse Reactions, Alerts Active Allergies Reaction Severity Comments Date Bee Sting 01/22/2018 Benzodiazepines profound aggitation 01/22/2018 Inactive Allergies NKDA 01/22/2018 Medications Active Medications SIG Qnty Indications Ordering Date Provider [place] Carbonate 1 by mouth twice a Arias Higuera, 04/25/2019 600mg day MD Capsules [facility] Magnesium Citrate drink the entire 296ml Arias Higuera 04/25/2019 bottle on day 4 no MD 1.745GM/30ML Solution BM Lamictal 2 tabs by mouth 150tabs Arias Higuera, 08/12/2018 100mg Tablets every morning and MD 3 tabs by mouth every night Lactaid take 1 tab by Unknown 3000Unit Tablets mouth after consuming dairy may repeat 30 minutes after as needed Dulcolax 1 tab po day 3 and Unknown 5mg Tablets DR 5 as needed Miralax 17 grams by mouth Unknown Powder every day Thera M Plus 1 by mouth every Unknown Tablets day Mucinex 1 by mouth twice a Unknown 600mg Tablets ER day as needed 12HR Nac 2 by mouth bid Unknown 600mg Capsules Lactulose 30 ml's qid Lida Aragon, 10GM/15ML MD Solution Acetaminophen 2 tablets by mouth Unknown 325mg every 4 hours as Tablets needed for pain/fever Diphenhydramine HCL 1 cap po q6hrs as Unknown Maximum Strength needed 50mg Tablets Chlorhexidine swish and spit 10 Unknown Gluconate milliliters twice 0.12% Solution a day Chlorpromazine HCL 1 po 3x daily Unknown 50mg Tablets Desonide tid as needed Unknown 0.05% Ointment Sertraline HCL 1 by mouth every Unknown 50mg day Tablets Hydrocortisone apply twice a day Unknown 1% Cream as needed Doxycycline Hyclate one tablet twice Unknown 100mg daily Capsules Quetiapine Fumarate 1 tab po qam and Unknown 200mg noon 2 tabs po qhs Tablets VSL#3 1 tab po bid Unknown 112.5Bil Capsules Triazolam 3 tabs po before Unknown 0.25mg Tablets medical appointment Ensure Enlive drink 1 shake tid Unknown Liquid in between meals [place] Carbonate 1 by mouth bid Unknown 300mg Capsules Levothyroxine Sodium 1 by mouth every Unknown day 50mcg Tablets [place]-Gest Antacid 1 tab po qd 3pm Unknown 500mg Chewtabs Epinephrine 1 injection as Unknown 0.3mg/0.3ML needed allergic Solution Auto-Inject reaction Mirtazapine take one tablet by Unknown 15mg Tablets mouth at bedtime Loratadine 1 by mouth every Unknown 10mg Tablets day Immunizations Description No Information Available Vital Signs Date Vital Result Comment 04/25/2019 10:15am Height 69 inches 5'9" Weight 176.00 lb Heart Rate 92 /min Respiratory Rate 16 /min BMI (Body Mass Index) 26.0 kg/m2 01/27/2019 10:26am Height 69 inches 5'9" Weight 180.00 lb BMI (Body Mass Index) 26.6 kg/m2 Results Test Date Facility Test Result H/L Range Note Laboratory test [facility] Lamotrigine 8.9 g/mL 2.5 - 1 finding 9 (Lamictal) 15.0 [place] [address] [phone] Laboratory test [facility] Ammonia 74 mcmol/L High 16-53 finding 9 [place] [address] [phone] Comp Metabolic [facility] Sodium 140 mmol/L Normal 135-[address] [place] [address] [phone] Potassium 4.4 mmol/L Normal 3.5-5.0 Chloride 107 mmol/L Normal 101-111 Co2 Carbon Dioxide 27 mmol/L Normal 22-32 Anion Gap 6 mmol/L Normal 2-11 Glucose 94 mg/dL Normal 70-100 Blood Urea Nitrogen 10 mg/dL Normal 6-24 Creatinine 0.58 mg/dL Low 0.67-1.17 BUN/Creatinine Ratio 17.2 Normal 8-20 Calcium 10.4 mg/dL High 8.6-10.3 Total Protein 6.7 g/dL Normal 6.4-8.9 Albumin 4.7 g/dL Normal 3.2-5.2 Globulin 2.0 g/dL Normal 2-4 Albumin/Globulin Ratio 2.4 Normal 1-3 Total Bilirubin 0.60 mg/dL Normal 0.2-1.0 Alkaline Phosphatase 74 U/L Normal 34-104 Alt 27 U/L Normal 7-52 Ast 17 U/L Normal 13-39 Egfr Non- 170.7 >60 Egfr 206.6 >60 2 Laboratory test 04/21/2019 [facility] [place] 0.76 mmol/L Normal 0.6-1.2 finding [address] [place] [address] [phone] TSH (Thyroid Stim Horm) 1.01 mcIU/mL Normal 0.34-5.60 CBC No Diff 04/21/2019 [facility] White Blood 6.5 10^3/uL Normal 3.5-10.[address] [place] [address] [phone] Red Blood Count 5.22 10^6/uL Normal 4.18-5.48 Hemoglobin 15.0 g/dL Normal 14.0-18.0 Hematocrit 44 % Normal 42-52 Mean Corpuscular Volume 84 fL Normal 80-94 Mean Corpuscular Hemoglobin 29 pg Normal 27-31 Mean Corpuscular HGB Conc 34 g/dL Normal 31-36 Red Cell Distribution Width 13 % Normal 10-15 Platelet Count 290 10^3/uL Normal 150-450 Mean Platelet Volume 7.5 fL Normal 7.4-10.4 CBC Auto 02/25/2019 [facility] White Blood 7.9 10^3/uL Normal 3.5-10.[address] [place] [address] [phone] Red Blood Count 5.09 10^6/uL Normal 4.18-5.48 Hemoglobin 14.6 g/dL Normal 14.0-18.0 Hematocrit 44 % Normal 42-52 Mean Corpuscular Volume 86 fL Normal 80-94 Mean Corpuscular Hemoglobin 29 pg Normal 27-31 Mean Corpuscular HGB Conc 33 g/dL Normal 31-36 Red Cell Distribution Width 13 % Normal 10.5-15 Platelet Count 268 10^3/uL Normal 150-450 Mean Platelet Volume 7.1 fL Low 7.4-10.4 Abs Neutrophils 5.3 10^3/uL Normal 1.5-7.7 Abs Lymphocytes 1.7 10^3/uL Normal 1.0-4.8 Abs Monocytes 0.6 10^3/uL Normal 0-0.8 Abs Eosinophils 0.2 10^3/uL Normal 0-0.6 Abs Basophils 0.0 10^3/uL Normal 0-0.2 Abs Nucleated RBC 0.0 10^3/uL Granulocyte % 68.0 % Lymphocyte % 21.3 % Monocyte % 7.8 % Eosinophil % 2.4 % Basophil % 0.5 % Nucleated Red Blood Cells % 0.0 Urinalysis Profile 02/25/2019 [facility] Urine Color Yellow [address] [place] [address] [phone] Urine Appearance Cloudy Urine Specific [place] 1.011 Normal 1.010-1.030 Urine pH 6.0 Normal 5-9 Urine Urobilinogen Negative Negative Urine Ketones Negative Negative Urine Protein Negative Negative Urine Leukocytes Negative Negative Urine Blood Negative Negative Urine Nitrite Negative Negative Urine Bilirubin Negative Negative Urine Glucose Negative Negative Laboratory test 02/25/2019 [facility] Ammonia 44 mcmol/L Normal 16-53 finding [address] [place] [address] [phone] Comp Metabolic 02/25/2019 [facility] Sodium 138 mmol/L Normal 135-145 Panel [address] [place] [address] [phone] Potassium 4.5 mmol/L Normal 3.5-5.0 Chloride 106 mmol/L Normal 101-111 Co2 Carbon Dioxide 24 mmol/L Normal 22-32 Anion Gap 8 mmol/L Normal 2-11 Glucose 100 mg/dL Normal 70-100 Blood Urea Nitrogen 6 mg/dL Normal 6-24 Calcium 10.6 mg/dL High 8.6-10.3 Total Protein 7.2 g/dL Normal 6.4-8.9 Albumin 5.2 g/dL Normal 3.2-5.2 Globulin 2.0 g/dL Normal 2-4 Albumin/Globulin Ratio 2.6 Normal 1-3 Total Bilirubin 0.50 mg/dL Normal 0.2-1.0 Alkaline Phosphatase 88 U/L Normal 34-104 Alt 40 U/L Normal 7-52 Ast 22 U/L Normal 13-39 Creatinine 0.59 mg/dL Low 0.67-1.17 BUN/Creatinine Ratio 10.2 Normal 8-20 Egfr Non- 168.8 >60 Egfr 204.2 >60 3 Laboratory test 02/25/2019 [facility] [place] 0.96 mmol/L Normal 0.6-1.2 finding [address] [place] [address] [phone] TSH (Thyroid Stim Horm) 2.04 mcIU/mL Normal 0.34-5.60 1 ADDITIONAL INFORMATION This test was developed and its performance characteristics determined by [facility] in a manner consistent with CLIA requirements. This test has not been cleared or approved by the U.S. Food and Drug Administration. Test Performed by: [facility] [address] [facility], [place] [address] 2 Because ethnic data is not always [...] 5 Kidney failure <15 (or dialysis) 3 Because ethnic data is not always readily [...] 15-29 5 Kidney failure <15 (or dialysis) Procedures Date Code Description Status 02/09/2019 70908 EKG, Interpretation Only Completed Medical Devices Description No Information Available Encounters Type Date Location Provider Dx Diagnosis Office Visit 04/25/2019 Seng Higuera, G40.909 Epilepsy , unsp, 9:45a [facility] not intractable, without status epilepticus Z79.899 Other buttermaker continuous churn (current) drug therapy Office Visit 01/27/2019 Seng Higuera, G40.909 Epilepsy, unsp, 10:15a Neurologic MD not intractable, [facility] without status epilepticus Z79.899 Other buttermaker continuous churn (current) drug therapy Assessments Date Code Description Provider 04/25/2019 G40.909 Epilepsy, unspecified, not intractable, Arias Higuera MD without status epile 04/25/2019 Z79.899 Other longterm (current) drug therapy Arias Higuera MD 02/09/2019 R94.31 Abnormal electrocardiogram [ECG] [EKG] Dayne Hernadez, DO [facility] 01/27/2019 G40.909 Epilepsy, unspecified, not intractable, Arias Higuera MD without status epile 01/27/2019 Z79.899 Other buttermaker continuous churn (current) drug therapy Arias Higuera MD Plan of Treatment Future Appointment(s):08/11/2019 3:00 pm - Briana Hernandez M.D. at [facility]11/02/2019 10:15 am - Arias Higuera MD at [place] [facility]04/25/2019 - Arias Higuera MDG40.909 Epilepsy, unspecified, not intractable, without status epileComments:Seizures well controlled on lamictal and tolerating well and will continue as is and will will checklevel before next visit. Metabolic workup in progress.Follow up:6 [id number] Other longterm (current) drug therapy Functional Status Description No Information Available Mental Status Description No Information Available Referrals Description No Information Available
--- OUTSIDE RECORDS SUMMARY | 2019-08-02 21:46 | XMS REPORT | Continuity of Care Document ---
:1995 External Reference #:[id number] Author Name José Evans M.D., [facility] (transmitted by agent of provider Cristal Guerrero) Address [address] 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 Problems Provider Date Epilepsy Arias [...] Medications SIG Qnty Indications Ordering Date Provider [place] Carbonate 1 by mouth twice a Arias Higuera, 04/25/2019 600mg day MD Capsules [facility] Magnesium Citrate drink the entire 296ml Arias Higuera, 04/25/2019 bottle on day 4 no MD [...] Unknown 600mg Capsules Lactulose 30 ml's qid [facility], 10GM/15ML MD Solution Acetaminophen 2 tablets by [...] shake tid Unknown Liquid in between meals [place] Carbonate 1 by mouth bid Unknown 300mg [...] Test Result H/L Range Note Laboratory test [facility] Lamotrigine 8.9 g/mL 2.5 - 1 finding 9 (Lamictal) 15.0 [place] [address] [phone] Laboratory test [facility] Ammonia 74 mcmol/L High 16-53 finding [address] [place] [address] [phone] Comp Metabolic [facility] Sodium 140 mmol/L Normal 135-[address] [place] [address] [phone] Potassium 4.4 mmol/L Normal 3.5-5.0 Chloride 107 [...] Egfr 206.6 >60 2 Laboratory test 04/21/2019 [facility] [place] 0.76 mmol/L Normal 0.6-1.[address] [place] [address] [phone] TSH (Thyroid Stim Horm) 1.01 mcIU/mL Normal 0.34-5.60 CBC No Diff 04/21/2019 [facility] White Blood 6.5 10^3/uL Normal 3.5-10.[address] [place] [address] [phone] Red Blood Count 5.22 10^6/uL Normal 4.18-5.48 Hemoglobin 15.0 g/dL Normal 14.0-18.0 Hematocrit 44 % Normal 42-52 Mean Corpuscular Volume 84 fL Normal 80-94 Mean Corpuscular Hemoglobin 29 pg Normal 27-31 Mean Corpuscular HGB Conc 34 g/dL Normal 31-36 Red Cell Distribution Width 13 % Normal 10-15 Platelet Count 290 10^3/uL Normal 150-450 Mean Platelet Volume 7.5 fL Normal 7.4-10.4 CBC Auto 02/25/2019 [facility] White Blood 7.9 10^3/uL Normal 3.5-10.[address] [place] [address] [phone] Red Blood Count 5.09 10^6/uL Normal 4.18-5.48 [...] Blood Cells % 0.0 Urinalysis Profile 02/25/2019 [facility] Urine Color Yellow [address] [place] [address] [phone] Urine Appearance Cloudy Urine Specific [place] 1.011 Normal 1.010-1.030 Urine pH 6.0 Normal 5-9 Urine Urobilinogen Negative Negative Urine Ketones Negative Negative Urine Protein Negative Negative Urine Leukocytes Negative Negative Urine Blood Negative Negative Urine Nitrite Negative Negative Urine Bilirubin Negative Negative Urine Glucose Negative Negative Laboratory test 02/25/2019 [facility] Ammonia 44 mcmol/L Normal 16-53 finding [address] [place] [address] [phone] Comp Metabolic 02/25/2019 [facility] Sodium 138 mmol/L Normal 135-145 Panel [address] [place] [address] [phone] Potassium 4.5 mmol/L Normal 3.5-5.0 Chloride 106 [...] Egfr 204.2 >60 3 Laboratory test 02/25/2019 [facility] [place] 0.96 mmol/L Normal 0.6-1.2 finding [address] [place] [address] [phone] TSH (Thyroid Stim Horm) 2.04 mcIU/mL Normal 0.34-5.60 1 ADDITIONAL INFORMATION This test was developed and its performance characteristics determined by [facility] in a manner consistent with CLIA requirements. This test has not been cleared or approved by the U.S. Food and Drug Administration. Test Performed by: [facility] [address] [facility] [place], [place] [address] 2 Because ethnic data is not always [...] dialysis) Procedures Date Code Description Status 02/09/2019 47715 EKG, Interpretation Only Completed Medical Devices Description No Information Available Encounters Type Date Location Provider Dx Diagnosis Office Visit 04/25/2019 Seng Higuera, G40.909 Epilepsy , unsp, 9:45a [facility] not intractable, without status epilepticus Z79.899 Other service station helper (current) drug therapy Office Visit 01/27/2019 Seng Higuera, G40.909 Epilepsy, unsp, 10:15a Neurologic MD not intractable, [facility] without status epilepticus Z79.899 Other service station helper (current) drug therapy Assessments Date Code Description Provider 04/25/2019 G40.909 Epilepsy, unspecified, not intractable, Arias Higuera MD without status epile 04/25/2019 Z79.899 Other service station helper (current) drug therapy Arias Higuera MD 02/09/2019 R94.31 Abnormal electrocardiogram [ECG] [EKG] Dayne Hernadez, DO [facility] 01/27/2019 G40.909 Epilepsy, unspecified, not intractable, Arias Higuera MD without status epile 01/27/2019 Z79.899 Other service station helper (current) drug therapy Arias Higuera MD Plan of Treatment Future Appointment(s):08/11/2019 3:00 pm - Briana Hernandez M.D. at [facility]11/02/2019 10:15 am - Arias Higuera MD at [place] [facility]04/25/2019 - Arias Higuera MDG40.909 Epilepsy, unspecified, not intractable, without status epileComments:Seizures well controlled on lamictal and tolerating well and will continue as is and will will checklevel before next visit. Metabolic workup in progress.Follow up:6 [id number] Other service station helper (current) drug therapy Functional Status Description No Information Available Mental Status Description No Information Available Referrals Description No Information Available
--- NOTE | 2019-08-02 22:10 | ED ---
Lower Extremity - HPI Summary HPI Summary: Patient complains of right foot pain after stomping on his own foot tonight. Denies any other pain, injury or symptoms. - History of Current Complaint Chief Complaint: EDExtremityLower Stated Complaint: POSS FOOT INJURY Time Seen by Provider: 08/02/19 21:53 Hx Obtained From: Patient Mechanism Of Injury: Blunt Trauma Severity Initially: Mild Severity Currently: Mild Pain Intensity: 3 Pain Scale Used: 0-10 Numeric Timing: Constant Location: Is Discrete @ Character Of Pain: Dull, Aching Associated Signs And Symptoms: Positive: Redness Aggravating Factor(s): Weight Bearing Able to Bear Weight: Yes - Allergies/Home Medications Allergies/Adverse Reactions: Allergies Allergy/AdvReac Type Severity Reaction Status Date / Time bee venom protein (honey bee) Allergy Intermediate Unknown Verified 08/02/19 21: 57 Reaction Details bee pollen Allergy Unknown Verified 08/02/19 21:57 Reaction Details doxycycline Allergy Unknown Verified 08/02/19 21:57 Reaction Details Benzodiazepines AdvReac PAROXISMAL Verified 08/02/19 21:57 REACTION clonazepam AdvReac profound Verified 08/02/19 21:57 agitation hydroxyzine AdvReac Unknown Verified 08/02/19 21:57 Reaction Details lactose AdvReac GI Upset Verified 08/02/19 21:57 lorazepam AdvReac profound Verified 08/02/19 21:57 agitation PMH/Surg Hx/FS Hx/Imm Hx Endocrine/Hematology History: Reports: Hx Thyroid Disease - hypo, Hx Anemia - MILDLY IN THE PAST Denies: Hx Anticoagulant Therapy, Hx Diabetes Cardiovascular History: Denies: Hx Congestive Heart Failure, Hx Deep Vein Thrombosis, Hx Hypertension , Hx Myocardial Infarction, Hx Pacemaker/ICD, Other Cardiovascular Problems/ Disorders Respiratory History: Reports: Hx Seasonal Allergies, Other Respiratory Problems/ Disorders - DX WITH PNEUMONIA Denies: Hx Asthma, Hx Chronic Obstructive Pulmonary Disease (COPD), Hx Lung Cancer, Hx Pneumonia, Hx Pulmonary Embolism GI History: Reports: Hx Gastroesophageal Reflux Disease - IN THE PAST, Hx Irritable Bowel - POSSIBLE, CHRONIC DIARHEA AND CONSTAPATION, Other GI Disorders - possible gerd Denies: Hx Gall Bladder Disease, Hx Gastrointestinal Bleed, Hx Ulcer, Hx Urosepsis History: Denies: Hx Kidney Stones, Hx Renal Disease, Other Problems/Disorders Musculoskeletal History: Denies: Other Musculoskeletal History Sensory History: Denies: Hx Contacts or Glasses, Hx Hearing Aid Opthamlomology History: Denies: Hx Contacts or Glasses Neurological History: Reports: Hx Developmental Delay, Hx Migraine, Hx Seizures - NEW ONSET- A YR AGO, Other Neuro Impairments/Disorders - SEVERE AUTISM Denies: Hx Dementia, Hx Transient Ischemic Attacks (TIA) Psychiatric History: Reports: Hx Anxiety - ANXIETY WITH AUTISM, Hx Inpatient Treatment, Hx Community Mental Health Tx, Hx Bipolar Disorder, Hx of Violent Episodes Against Others, Other Psychiatric Issues/Disorders - Autism Denies: Hx Eating Disorder, Hx Depression, Hx Panic Disorder, Hx Schizophrenia - Surgical History Surgery Procedure, Year, and Place: WISDOM TEETH EXTRACTIONS Hx Anesthesia Reactions: No - Immunization History Date of Tetanus Vaccine: 09/2006 Date of Influenza Vaccine: utd Infectious Disease History: No Infectious Disease History: Reports: Hx of Known/Suspected MRSA Denies: Hx Clostridium Difficile, Hx Hepatitis, Hx Human Immunodeficiency Virus (HIV), Hx Shingles, Hx Tuberculosis, Hx Known/Suspected VRE, Hx Known/ Suspected VRSA, History Other Infectious Disease, Traveled Outside the [place] in Last 30 Days - Family History Known Family History: Negative: Cardiac Disease, Hypertension, Diabetes, Renal Disease, Respiratory Disease, Seizure Disorder, Blood Disorder, Other - Social History Alcohol Use: None Hx Substance Use: No Substance Use Type: Reports: None Hx Tobacco Use: No Smoking Status (MU): Never Smoked Tobacco Have You Smoked in the Last Year: No Review of Systems Constitutional: Negative Eyes: Negative ENT: Negative Cardiovascular: Negative Respiratory: Negative Gastrointestinal: Negative Genitourinary: Negative Musculoskeletal: Other Skin: Negative Neurological: Negative Psychological: Normal All Other Systems Reviewed And Are Negative: Yes Physical Exam - Summary Physical Exam Summary: Erythema to dorsal surface of right foot. Otherwise unremarkable exam of right foot. Triage Information Reviewed: Yes Vital Signs On Initial Exam: Initial Vitals Temp Pulse Resp BP Pulse Ox 98.5 F 129 18 143/94 97 08/02/19 21:13 08/02/19 21:13 08/02/19 21:13 08/02/19 21:13 08/02/19 21:13 Vital Signs Reviewed: Yes Appearance: Positive: Well-Appearing Skin: Positive: Warm Head/Face: Positive: Normal Head/Face Inspection Eyes: Positive: Normal ENT: Positive: Normal ENT inspection Neck: Positive: Supple Respiratory/Lung Sounds: Positive: Clear to Auscultation Cardiovascular: Positive: Normal Abdomen Description: Positive: Nontender Musculoskeletal: Positive: Normal Neurological: Positive: Normal Psychiatric: Positive: Normal AVPU Assessment: Alert - Suzanne Coma Scale Best Eye Response: 4 - Spontaneous Best Motor Response: 6 - Obeys Commands Best Verbal Response: 5 - Oriented Coma Scale Total: 15 Procedures - Sedation Patient Received Moderate/Deep Sedation with Procedure: No Diagnostics - Vital Signs Vital Signs Temp Pulse Resp BP Pulse Ox 08/02/19 21:13 98.5 F 129 18 143/94 97 - Laboratory Lab Statement: Any lab studies that have been ordered have been reviewed, and results considered in the medical decision making process. Lower Extremity Course/Dx - Course Course Of Treatment: Patient complains of right foot pain after stomping on his own foot tonight. Denies any other pain, injury or symptoms. Vital signs within normal limits. No indication for x-ray. Patient eloped prior to discharge. - Diagnoses Provider Diagnoses: Foot pain, right Discharge ED - Sign-Out/Discharge Documenting (check all that apply): Patient Departure - Discharge Plan Condition: Stable Disposition: HOME Patient Education Materials: Foot Contusion (ED) Referrals: Lida Pedersen MD [Primary Care Provider] - Additional Instructions: Tylenol or ibuprofen for pain. If symptoms persist follow-up with primary care. - Billing Disposition and Condition Condition: STABLE Disposition: Home - Attestation Statements Provider Attestation: I was available for consult. This patient was seen by the AD[facility]. The patient was not presented to, seen by, or examined by me. Triston Vasquez MD
[2019-08-02 22:27] VITALS: BP 0/0
== END 2019-08-02 22:20 | disposition home or self-care (01) ==
LOC: ED 21:04
DX: M79.671 Pain in right foot (principal); E03.9 Hypothyroidism, unspecified; D64.9 Anemia, unspecified; K21.9 Gastro-esophageal reflux disease without esophagitis; R62.50 Unspecified lack of expected normal physiological development in childhood; F41.9 Anxiety disorder, unspecified; F31.9 Bipolar disorder, unspecified; Z88.1 Allergy status to other antibiotic agents; Z88.8 Allergy status to other drugs, medicaments and biological substances; Z79.890 Hormone replacement therapy; Z79.899 Other long term (current) drug therapy
CPT/HCPCS: 99282